=== PATIENT | male | born 1945 | race Caucasian/White ===

== ENCOUNTER 2024-09-30 14:45 | Emergency (ER) | payer OTHER, SELFPAY ==
--- NOTE | ~2024-09-30 | CT_ITS ---
EXAMINATION: CT cervical spine wo con DATE: 09/30/2024 15:58 INDICATION: Fall/etoh TECHNIQUE: Computed tomography (CT) of the cervical spine was performed without intravenous contrast. Automated exposure control and iterative reconstruction technique were employed. The dose-length pro duct was 605.33 mGy-cm. COMPARISON: None. FINDINGS: Vertebral Body Alignment: Intact. Craniocervical and atlantoaxial alignment: Moderate degenerative change. Alignment intact. Osseous structures/fracture: No evidence of a lytic or blastic process in the visualized spine. No e vidence of acute fracture. Cervical soft tissues: The paraspinal soft tissues planes are maintained. Significant biapical pleura l scarring. Degenerative changes: Multilevel moderate facet arthropathy. Multilevel severe degenerative disc dise ase. Severe right neural foraminal narrowing at C4-5 secondary to degenerative changes. No severe august tral canal narrowing. IMPRESSION: No acute fracture or traumatic malalignment in the cervical spine. Reviewed, dictated and finalized at location K. GENCY MANAGEMENT PROGRAM SPECIALIST
--- NOTE | ~2024-09-30 | CT_ITS ---
EXAMINATION: CT brain wo con DATE: 09/30/2024 15:57 INDICATION: Fall/etoh . TECHNIQUE: Computed tomography (CT) of the head was performed without intravenous contrast. The mA wa s adjusted according to patient size. Iterative reconstruction technique was employed. The dose-lengt h product was 605.33 mGy-cm. COMPARISON: None. FINDINGS: No acute intracranial hemorrhage or extra-axial fluid collection. No hydrocephalus, mass, or herniation. No acute ischemic infarct. Unremarkable dural venous sinus attenuation. No acute osseous abnormality. The aerated spaces are clear. Mild atrophy and chronic white matter change. Atherosclerotic intracranial calcification. Bilateral l ens replacements. Left basal ganglia calcification. IMPRESSION: No acute intracranial process. Reviewed, dictated and finalized at location K. SHELLFISH PREPARER
[2024-09-30 14:49] VITALS: BP 120/83; PULSE 60; RESP 12; TEMP 36.6; O2SAT 100
--- NOTE | 2024-09-30 15:39 | ED.FALL ---
HPI - Fall General Chief Complaint: Fall Stated Complaint: glf Time Seen by Provider: 09/30/24 15:06 Source: patient Mode of arrival: EMS Limitations: no limitations History of Present Illness HPI Narrative: This is a 79-year-old male brought in by EMS from a in [facility] after a ground level fall. Patient states he has been drinking today. He denies loss of consciousness or or use of blood thinners. He complains of headache ago has no other complaints at this time. He states he has been drinking ?a moderate amount. ? He has no other complaints at this time. Related Data Allergies Allergy/AdvReac Type Severity Reaction Status Date / Time No Known Allergies Allergy Unverified 10/29/15 18:09 Review of Systems Review of Systems: All systems reviewed & are unremarkable except as noted in HPI and below PMFSH Past Medical History Medical History No significant past medical history Surgical History Surgical History No significant past surgical history Social History Social History Smoking status: Current every day smoker Alcohol intake: current Substance use: never Exam Narrative: GENERAL: Well-developed, well-nourished, and in no acute distress. Smells of alcohol HEAD: Normocephalic, there is a 1 cm laceration noted to the scalp with what appears to be a previous injury EYES: PERRLA and EOMI. NECK: Supple. No midline spine tenderness to palpation, no step-off or crepitus CHEST: Clear to auscultation. No respiratory distress. No wheezes rales or rhonchi HEART: Regular rate and rhythm. No murmur heard. Normal peripheral pulses. ABDOMEN: Soft, nontender, nondistended, normal active bowel sounds. BACK: I had no midline spine tenderness to palpation, step-off or crepitus EXTREMITIES: Normal range of motion. No edema. SKIN: Warm, dry, no rash. NEURO: Alert and oriented x2 (self and location). No focal deficit. Moving all 4 limbs spontaneously. Appears intoxicated PSYCH: Normal mood and affect. Course Course Emergency Course: 17:00 - CBC demonstrates anemia with hemoglobin of 12.2 but is otherwise unremarkable. Chemistries unremarkable. Serum alcohol level 226. CT head and cervical spine negative for skull fracture or intracranial hemorrhage. The patient's laceration was closed with 2 patrizia. He was given a tetanus vaccination. Will observe for clinical sobriety and anticipate discharge. 20:34 - The patient is now ambulating steadily on his feet. Will discharge. Vital Signs Vital signs: Vital Signs Temperature 36.6 C 09/30/24 14:49 Pulse Rate 60 09/30/24 14:49 Respiratory Rate 12 09/30/24 14:49 Blood Pressure 120/83 09/30/24 14:49 Pulse Oximetry 100 09/30/24 14:49 Oxygen Delivery Room Air 09/30/24 14:49 Temperature 36.6 C 09/30/24 14:49 Pulse Rate 61 09/30/24 18:27 Respiratory Rate 16 09/30/24 18:27 Blood Pressure 123/69 09/30/24 18:27 Pulse Oximetry 99 09/30/24 18:27 Oxygen Delivery Room Air 09/30/24 14:49 Procedures Laceration Laceration 1: Date: 09/30/24 Time: 15:35 Site: scalp Side (If applicable): right Size (cm): 1 Description: linear Depth: simple, single layer Local Anesthetic: none Pre-repair: wound explored ====== Skin Level ====== Skin layer closed with: patrizia Number of sutures: 2 ====== Subcutaneous Layer ====== ====== Muscle Layer ====== ====== Tendon Layer ====== MDM - Fall [facility] Narrative Medical decision making narrative: Plan: Labs, imaging, pain control, observation, reassess Differential Diagnosis Differential diagnosis: Likely other (Skull fracture, intracranial hemorrhage, cervical spine fracture, drug/alcohol intoxication, other) Lab Data 09/30/24 16:47 09/30/24 16:47 Labs: Lab Results 09/30/24 Range/Units 16:47 WBC 4.3 L (4.5-10.0) K/mm3 RBC 4.20 L (4.6-6.20) M/mm3 Hgb 12.2 L (14.0-18.0) g/dL Hct 38.0 L (42.0-52.0) % MCV 90.5 (80-100) fl MCH 29.0 (26-34) pg MCHC 32.1 (32-36) g/dl RDW 13.8 (11.5-14.5) % Plt Count 216 (150-375) k/mm3 MPV 9.4 (7.4-10.4) fl Immature Gran % (Auto) 0.7 H (0-0.5) % Neut % (Auto) 51.1 (45.5-73.1) % Lymph % (Auto) 34.5 (18.3-44.2) % Owsley % (Auto) 11.3 H (2.6-8.5) % Eos % (Auto) 1.9 (0-4.4) % Baso % (Auto) 0.5 (0.2-1.2) % Lymph # (Auto) 1.49 (0.9-3.2) K/mm3 [place]wsley # (Auto) 0.5 (0.1-0.6) K/mm3 Eos # (Auto) 0.1 (0-0.3) K/mm3 Baso # (Auto) 0.0 (0.0-0.1) K/mm3 Abs Immat Gran (auto) 0.03 (0.00-0.031) K/mm3 Absolute Neuts (auto) 2.2 (1.3-6.7) K/mm3 Absolute Nucleated RBC 0.000 (0.0-0.012) K/mm3 Nucleated RBC % 0.0 (0.0-0.2) % Sodium 145 (137-145) mmol/L Potassium 3.9 (3.4-5.0) mmol/L Chloride 107 (98-107) mmol/L Carbon Dioxide 33 H (22-30) mmol/L Anion Gap 5 (4-12) mmol/L BUN 12 (9-20) mg/dL Creatinine 0.70 (0.7-1.3) mg/dL Estim Creat Clear Calc Not Reportable Estimated GFR > 60 (59 - ) Glucose 96 (65-110) mg/dL Calcium 8.4 (8.4-10.2) mg/dL Total Bilirubin 0.8 (0.2-1.3) mg/dL AST 37 (17-59) U/L ALT 17 (6-50) U/L Alkaline Phosphatase 81 (38-126) U/L Total Protein 6.0 L (6.3-8.2) g/dL Albumin 3.8 (3.5-5.1) g/dL Ethyl Alcohol 226 (<10) mg/dL Discharge Plan Discharge Clinical Impression: Laceration of scalp, Alcohol intoxication Patient Disposition: Home, Self-Care Condition: Stable Instructions: Antibiotic Form, Laceration (ED), Abuse of Alcohol (ED) Additional Instructions: You were seen in the emergency department. Your laceration was closed with 2 patrizia. Scan of the head was not concerning for bleeding in the brain. I recommend avoiding future drug or alcohol use. I recommend following up with a primary care doctor in 10-14 days for staple removal. If you develop weakness/numbness, persistent vomiting, loss of consciousness, or if you have other emergent concerns for life, limb, or eyesight, return to the emergency department. Patient Language: Armenian Follow-up/Referrals: Batsheva Linder DO [Physician] - 2 Weeks (For staple removal) PHYSICIAN,TALENT DEVELOPMENT CONSULTANT [Primary Care Provider] - Time of Disposition: 20:35
[2024-09-30] MEDS: TETANUS,DIPHTHERIA,AC PERTUSSIS ADULT (0.5 ML) BOOSTRIX IM (16:41)
[2024-09-30 16:50] VITALS: BP 129/66; PULSE 71; RESP 18; O2SAT 100
[2024-09-30 16:53] LABS: Basophils Percent Auto 0.5 % (0.2-1.2); Eosinophils Absolute Auto 0.1 K/mm3 (0-0.3); Eosinophils Percent Auto 1.9 % (0-4.4); Hemoglobin 12.2 g/dL (14.0-18.0); Immature Granulocyte Absolute 0.03 K/mm3 (0.00-0.031); Immature Granulocyte Percent A 0.7 % (0-0.5); Lymphocytes Absolute Auto 1.49 K/mm3 (0.9-3.2); Lymphocytes Percent Auto 34.5 % (18.3-44.2); Mean Corpuscular HGB Conc 32.1 g/dl (32-36); Mean Corpuscular Volume 90.5 fl (80-100); Mean Platelet Volume 9.4 fl (7.4-10.4); Monocytes Absolute Auto 0.5 K/mm3 (0.1-0.6); Monocytes Percent Auto 11.3 % (2.6-8.5); Neutrophils Absolute Auto 2.2 K/mm3 (1.3-6.7); Neutrophils Percent Auto 51.1 % (45.5-73.1); Platelet Count Result 216 k/mm3 (150-375); Red Cell Distribution Width 13.8 % (11.5-14.5); White Blood Count 4.3 K/mm3 (4.5-10.0)
[2024-09-30 17:10] LABS: Ethanol 226 mg/dL (<10)
[2024-09-30 17:20] LABS: Alanine Aminotransferase 17 U/L (6-50); Albumin Level 3.8 g/dL (3.5-5.1); Alkaline Phosphatase 81 U/L (38-126); Anion Gap 5 mmol/L (4-12); Aspartate Amino Transferase 37 U/L (17-59); Bilirubin,Total 0.8 mg/dL (0.2-1.3); Blood Urea Nitrogen 12 mg/dL (9-20); Calcium 8.4 mg/dL (8.4-10.2); Carbon Dioxide 33 mmol/L (22-30); Chloride 107 mmol/L (98-107); Estimated Glomerular Filt Rate > 60; Glucose 96 mg/dL (65-110); Potassium 3.9 mmol/L (3.4-5.0); Sodium 145 mmol/L (137-145)
--- NOTE | 2024-09-30 17:45 | PCCCNOTE ---
1745-Provided a cab voucher for pt upon discharge to his home address requested.-latanya.
[2024-09-30 18:27] VITALS: BP 123/69; PULSE 61; RESP 16; O2SAT 99
== END 2024-09-30 20:45 | disposition home or self-care (01) ==
PROVIDERS: Emergency Provider Preventive Medicine Aerospace Medicine
DX: S01.01XA Laceration without foreign body of scalp, initial encounter (principal); F10.129 Alcohol abuse with intoxication, unspecified; Y90.8 Blood alcohol level of 240 mg/100 ml or more; Z23 Encounter for immunization; F17.200 Nicotine dependence, unspecified, uncomplicated
CPT/HCPCS: 12001; 36415; 70450; 72125; 80053; 82077; 85025; 90471; 90715; 99284

== ENCOUNTER 2025-06-01 21:30 | Inpatient (IN) | payer MEDICARE, SELFPAY ==
--- NOTE | ~2025-06-01 | CT_ITS ---
EXAMINATION: CT abdomen pelvis wo con DATE: 06/06/2025 13:31 INDICATION: Inguinal hernia. TECHNIQUE: Computed tomography (CT) of the abdomen and pelvis was performed without intravenous contr ast. The dose-length product was 262.01 mGy-cm. Automated exposure control and iterative reconstructi on technique were employed. COMPARISON: None. FINDINGS: Lung bases unremarkable. Heart size normal. The liver, spleen, pancreas, left kidney are un remarkable. There are calcifications in the right kidney which may represent nonobstructing renal sto ne or vascular calcification. There is atherosclerosis of the aorta with stenosis of the celiac axis, SMA, renal arteries. Nonobstructive bowel gas pattern. There are bilateral inguinal hernias containi ng containing nonobstructed bowel. Small amount of fluid in the right scrotum. There is bladder wall thickening. Mild osteoarthritis of the hips. Severe lumbar spondylosis. IMPRESSION: 1. Large bilateral inguinal hernias containing nonobstructed bowel. 2: Diffuse bladder wall thickening, suspicious for cystitis. Clinically correlate. 3: Advanced atherosclerosis of the aorta with stenosis at the origin of the celiac axis, SMA and boogie al arteries. Reviewed, dictated and finalized at location A. IMPRESSION: 1. Large bilateral inguinal hernias containing nonobstructed bowel. 2: Diffuse bladder wall thickening, suspicious for cystitis. Clinically correla te. 3: Advanced atherosclerosis of the aorta with stenosis at the origin of the ce liac axis, SMA and renal arteries.
--- NOTE | ~2025-06-01 | XR_ITS ---
EXAMINATION: XR chest 1V portable Exam Date/Time: 06/01/2025 22:03 CDT HISTORY: AMS Comparison: CT C-spine 09/30/2024. RESULT: Lines, tubes, and devices: None. Lungs and pleura: No focal consolidation, pleural effusion, or pneumothorax. Biapical pleural scarri ng, worse in the right apex and grossly unchanged given interval differences in technique. Cardiomediastinal silhouette: Stable. Other: No acute osseous or upper abdominal finding. Osteopenia. Degenerative changes in the shoulder s and spine. IMPRESSION: No acute cardiopulmonary process. Reviewed, dictated and finalized at location K.
--- NOTE | ~2025-06-01 | CT_ITS ---
EXAMINATION: CT brain wo con DATE: 06/02/2025 01:06 INDICATION: New bizarre behavior TECHNIQUE: Computed tomography (CT) of the head was performed without intravenous contrast. Sagittal and coronal reconstructions were performed. The mA was adjusted according to patient size. Iterative reconstruction technique was employed. The dose-length product was 1059.33 mGy-cm. COMPARISON: head CT dated 09/30/2024 FINDINGS: No acute intracranial hemorrhage, acute infarction or abnormal extra axial fluid collection. There is mild scattered white matter hypoattenuation consistent with chronic small vessel ischemic disease. S ymmetric prominence of the sulci and ventricles consistent with mild to moderate age-appropriate diff use cerebral volume loss. No mass/mass effect. The orbits, paranasal sinuses and mastoid air cells ar e normal. IMPRESSION: 1. No acute intracranial process. 2. Age-related changes including mild to moderate diffuse volume loss and mild scattered white matter hypoattenuation consistent with chronic small vessel ischemic disease. Reviewed, dictated and finalized at location A. IMPRESSION: 1. No acute intracranial process. 2. Age-related changes including mild to moderate diffuse volume loss and mild scattered white matter hypoattenuation consistent with chronic small vessel isc hemic disease.
[2025-06-01 21:38] VITALS: BP 133/122; PULSE 86; RESP 20; O2SAT 100
--- NOTE | 2025-06-01 21:38 | ECG_ITS ---
Test Date: 2025-06-01 22:11:06 Measurements Intervals [place] Rate: 85 P: 69 WV: 182 QRS: 32 QRSD: 125 T: 70 QT: 402 QTc: 480 Interpretive Statements SINUS RHYTHM LEFT BUNDLE BRANCH BLOCK BASELINE ARTIFACT- I, II, III, AVR, AVL, AVF, V4-V6 ABNORMAL ECG No previous ECG available for comparison Electronically Signed On 06-02-2025 07:36:53 CDT by Arnoldo Fletcher D.O.
[2025-06-01 22:09] LABS: Hematocrit 33.1 % (42.0-52.0); Hemoglobin 10.9 g/dL (14.0-18.0); Immature Granulocyte Percent A 0.2 % (0-0.5); Lymphocytes Absolute Auto 0.64 K/mm3 (0.9-3.2); Mean Corpuscular HGB Conc 32.9 g/dl (32-36); Mean Corpuscular Hemoglobin 31.1 pg (26-34); Mean Corpuscular Volume 94.6 fl (80-100); Nucleated Red Blood Cells Absolute Auto 0.000 K/mm3 (0.0-0.012); Nucleated Red Blood Cells Perc 0.0 % (0.0-0.2); Platelet Count Result 200 k/mm3 (150-375); Red Blood Count 3.50 M/mm3 (4.6-6.20); White Blood Count 8.5 K/mm3 (4.5-10.0)
--- NOTE | 2025-06-01 22:10 | ECG_ITS ---
Test Date: 2025-06-01 22:10:38 Measurements Intervals [place] Rate: 85 P: 80 CA: 179 QRS: 28 QRSD: 125 T: 70 QT: 394 QTc: 470 Interpretive Statements SINUS RHYTHM LEFT BUNDLE BRANCH BLOCK BASELINE ARTIFACT- I, II, AVR, AVL, AVF ABNORMAL ECG No previous ECG available for comparison Electronically Signed On 06-03-2025 16:24:54 CDT by Arnoldo Fletcher D.O.
[2025-06-01 22:34] LABS: Alanine Aminotransferase 33 U/L (6-50); Albumin Level 3.9 g/dL (3.5-5.1); Alkaline Phosphatase 86 U/L (38-126); Anion Gap 8 mmol/L (4-12); Aspartate Amino Transferase 66 U/L (17-59); Bilirubin,Total 1.1 mg/dL (0.2-1.3); Blood Urea Nitrogen 63 mg/dL (9-20); Calcium 8.7 mg/dL (8.4-10.2); Carbon Dioxide 27 mmol/L (22-30); Chloride 102 mmol/L (98-107); Estimated Glomerular Filt Rate > 60; Glucose 90 mg/dL (65-110); Potassium 4.5 mmol/L (3.4-5.0); Sodium 137 mmol/L (137-145); Total Protein 6.4 g/dL (6.3-8.2); Troponin I 0.039 ng/mL (0.000-0.034)
[2025-06-01 22:51] LABS: Add Urine Microscopic? YES; Appearance Urine Clear (Clear); Glucose Urine UA Negative (Negative); Leukocyte Esterase Ur Trace LEU/UL (Negative); Nitrate Urine Negative (Negative); Specific Grav Ur 1.021 (1.001-1.035)
[2025-06-01 22:57] LABS: Thyroid Stimulating Hormone 0.750 uIU/mL (0.465-4.680)
[2025-06-01 23:09] LABS: Cannabinoid Screen Urine Negative (Negative)
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
[2025-06-01 23:21] VITALS: BP 125/64; PULSE 82; RESP 18; O2SAT 99
--- NOTE | 2025-06-01 23:21 | PC.NURSE ---
Per previous RN she did not give med (haldol) due to pt not needing the haldol at this time. Pt thought he was hearing voices but realized he was hearing his roommates talking.
--- OUTSIDE RECORDS SUMMARY | 2025-06-01 23:32 | XMS_ITS | Referral Summary ---
Author Organization [facility] Address [address] [place] [address] Care Team Providers Care Historical Society Director Name Role Phone Elana Ferro MD Primary Care Provider [phone] Encounters Date Type Department Care Team Description 04/24/2025 Telephone [facility] Ophthalmology [address] [place] [address] 1st [place] [id number] Laendro Almeida MD Scheduling Appointments (Retina sx) 03/07/2025 4:20 PM CDT Office Visit [facility] ([facility]) - [facility] ENT [address] [facility] 11th [place] [address] [place] [id number] Travis Ma MD Pharyngoesophageal dysphagia (Primary Dx); Globus sensation from Last 3 Months Allergies No known active allergies Medications acetaminophen (TYLENOL) 500 mg tablet Take 500 mg by mouth every 6 (six) hours as needed for pain Active moxifloxacin (VIGAMOX) 0.5 % ophthalmic solution Administer 1 drop into the right eye every 6 (six) hours Active prednisoLONE acetate (PRED FORTE) 1 % ophthalmic suspension Administer 1 drop into the right eye every 6 (six) hours Active Active Problems Problem Noted Date Diagnosed Date Retinal tear of right eye 05/29/2021 Assessment & Plan (05/29/2021 12:07 PM CDT): [facility] Patient reported photopsias at [facility] for cataract. Found to have small tear peripheral with pigment right eye (OD) likely chronic. Discussed r/b/a of laser retinopexy today with patient. He elects to proceed. 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 Gender Identity Not on file Sexual Orientation Not on file Last Filed Vital Signs Vital Sign Reading Time Taken Comments Blood Pressure 117/79 02/23/2025 11:40 AM CDT Pulse 61 02/23/2025 11:40 AM CDT Temperature - - Respiratory Rate - - Oxygen Saturation - - Inhaled Oxygen Concentration - - Weight 66.7 kg (147 lb) 03/07/2025 4:32 PM CDT Height 185.4 cm (6' 1) 03/07/2025 4:32 PM CDT Body Mass Index 19.39 03/07/2025 4:32 PM CDT Plan of Treatment Not on file Insurance [place] [employer] [facility] Care Teams Historical Society Director Relationship Specialty Start Date End Date Elana Ferro MD [address] [place] [address] PCP - General Tar And Ammonia Pump Operator 05/28/21
--- OUTSIDE RECORDS SUMMARY | 2025-06-01 23:32 | XMS_ITS | Continuity of Care Document ---
Author Organization [facility] Address [address] [place] [address] Phone Care Team Providers Care Clinical Project Assistant Name Role Phone Candelario Campbell MD Unavailable Unavailable Allergies, Adverse Reactions, Alerts Substance Reaction Status Criticality No Known Allergies Active No Inform ation Medications Medication Instructions Dosage Effective Dates (start - stop) Status Comments No Drug Therapy Prescribed Procedures Procedure Date OFFICE/OUTPATIENT VISIT, EST PREV VISIT, EST, 65 & OVER OFFICE/OUTPATIENT VISIT, EST OFFICE/OUTPATIENT VISIT, EST OFFICE/OUTPATIENT VISIT, EST OFFICE/OUTPATIENT VISIT, EST PREV VISIT, NEW, 65 & OVER OFFICE/OUTPATIENT VISIT, NEW Advance Directives Directive Yes / No Effective Date File Name No Information Encounters Encounter Description Practice Location Reason(s) For Visit Diagnoses Date Provider Providers Copied on Encounter OFFICE/OUTPA TIENT VISIT, EST [facility], [address] [place], [place], [id number], tel:[phone] [facility] knee pain1 (chief complaint) proteinuri a1 (chief complaint) ProteinuriaPain in knee 8 Adrian Palomino. [address] [place], [id number] , [place]. tel:[phone] Referring Provider: [facility], [place], [place], [id number]. tel:[phone] PREV VISIT, EST, 65 & OVER [facility], [address], [place], [place], [id number], [place] tel:[phone] [facility] PHysical (chief complaint) Inguinal herniaProteinuriaHy perlipidemiaEncount er for general adult medical exam w abnormal findingsOccult blood in stool Sep-0 8 Adrian Palomino. [address], [place], [place], [id number] , [place]. [phone] Referring Provider: Lucio Palumbo [address], [place], [place], [id number]. tel:[phone] [facility], [address], [place], [place], [id number], [place] [phone] [facility] Proteinuria 8 Adrian Locke [address], [address], [place], [place], [address] , [place]. [phone] Referring Provider: Lucio Palumbo [address], [place], [place], [id number]. tel:[phone] OFFICE/OUTPA TIENT VISIT, [facility], [address], [place], [place], [id number], [place] tel:[phone] [facility] inguinal hernia1 (chief complaint) fecal1 (chief complaint) weight loss1 (chief complaint) Urine1 (chief complaint) Abnormal weight lossInguinal herniaOccult blood in stoolUrinary tract infection Jan- 8 Adrian [address], [place], [place], [id number] , [place]. tel:[phone] Referring Provider: Lucio Palumbo [address], [place], [place], [id number]. tel:[phone] OFFICE/OUTPA TIENT VISIT, EST [facility], [address], [place], [place], [id number], [place] tel:[phone] [facility] glucose1 (chief complaint) HLP (chief complaint) Vitamin D1 (chief complaint) blood in stool (chief complaint) weight loss1 (chief complaint) HyperglycemiaHyperl ipidemiaOccult blood in stoolAbnormal weight loss Dec-0 7 Adrian Locke [address], [address], [place], [place], [id number] , [place]. tel:[phone] Referring Provider: Lucio Palumbo [address], [place], [place], [id number]. tel:[phone] OFFICE/OUTPA TIENT VISIT, EST [facility], [address], [place], [place], [id number], [place] tel:[phone] [facility] hernia1 (chief complaint) HTN (chief complaint) Essential (primary) hypertensionInguina l hernia 7 Adrian Palomino. [address], [place], [place], [id number] , [place]. tel:[phone] Referring Provider: Lucio Palumbo [address], [place], [place], [id number]. tel:[phone] PREV VISIT, NEW, 65 & OVER [facility], [address], [place], [place], [id number], [place] tel:[phone] [facility] PHysical (chief complaint) Encounter for general adult medical exam w abnormal findingsInguinal herniaEssential (primary) hypertensionEncount er for screening for other viral diseases Adrian Palomino. [address], [place], [place], [address] , [place]. tel:[phone] Referring Provider: Lucio Palumbo [address] [facility] [address], [place], [place], [id number]. tel:[phone] Family History Family Member Type Diagnosis Age At Onset Father Problem (finding) of gun shot wound Mother Problem (finding) cervical CA Brother Problem (finding) Alive and well Mother Problem (finding) Coronary artery disease 65 Payers Payer name Insurance type Covered democrat ID Authoriza tion(s) No Information Social History Type Description Quantity Date Captured Comments Alcohol Use Details Caffeine Use Details Unknown Tobacco Use Status Ex-cigarette smoker 018 Smoking Status Former smoker Smoking Tobacco Use Details Cigarette: Age Started: 12, Age Stopped: 43, Years Used 31 Cigarette: 0.5 Packs per day, Pack Year: 15.5 Non-Smoking Tobacco Use Details Chewing: No Details Available Chewing: No Details Available Sex Male Vital Signs Date / Time: Height Weight BMI Pulse Rate Blood Pressure Temperature Respiratory Rate Body Surface Area Head Circumference BMI percentile Pulse Ox Inhaled Ox 1:44 PM 73.00 in 171.90 lbs 22.6 8 kg/m eter (2) 88 /min 118/64 mm[Hg] 97.8 F 18 /min Chief Complaint And Reason For Visit From encounter dated '10/11/2018 11:30'. knee pain1 (chief complaint). Description: Pt notices some clicking noise and mild pain with walking bilateral knee for several months Pt denies any injury. Pt denies any swelling or erythema or warmth. proteinuria1 (chief complaint). Description: Pt has proteinuria. Pt denies any UTI symptoms. Pt hadnormal urine albumin recently Plan Of Treatment Date Type Action Status Goal Tobacco cessation counseling completed Referral Ordered: Surgery (related to Inguinal hernia) ordered Referral Ordered: Referrals: Surgery. Evaluate and treat ordered History Of Present Illness Encounter Date Complaint History Of Prese nt Illness proteinuria1 Pt has proteinur ia. Pt denies any UTI symptoms. Pt had normal urine albumin recently knee pain1 Pt notices some clicking noise and mild pain with walking bilateral knee for several months Pt denies any injury. Pt denies any swelling or erythema or warmth. PHysical Pt needs annual physical. Pt has mild high glucose and TG Pt denies any polyuria, polydipsia. Pt denies any lexy GI bleeding Pt had colonoscopy done recently at [facility] and he was told he has internal hemorrhoid. Pt has large painful chronic strangulated right inguinal hernia. Pt refuses to get it fixed. Pt notices mild pain sometimes. Pt denies any testicular pain Pt denies any urinary symptoms pt denies any other complaints Urine1 Pt notices some dark urine and some flank pain for several days. Pt denies any fever, chill, pt denies any nausea, vomiting. He denies any dysuria, urgency or frequency weight loss1 Pt has not been losing weight lately. Pt did lose some weight during last year Pt denies any GI issue. Pt denies any appetite loss pt denies any nausea, vomiting, diarrhea blood in stool fecal1 Pt has positive fecal globin Pt supposes to do colonoscopy by GI at [facility] but he has not done it yet. pt denies any inguinal hernia1 Pt has right in guinal hernia. Pt is noncompliant with surgery Pt denies any pain. weight loss1 Pt has lost clos e to 20 pounds recently. Pt cut down all soda, carb and starchy food, recently and trying intentioanlly weight losing. blood in stool Additional infor mation: Pt has positive blood in stool. pt denies any change in bowel habit Pt denies any weight loss. Vitamin D1 Pt has low D. HLP Pt has mild high TG Pt eats healthy. glucose1 Pt has mild high glucose. Pt denies any polyuria, polydipsia HTN His BP is ok tod ay. Pt deneis any chest pain or headahe. He states that his BP is high when he is stressed out hernia1 Pt has large str angulated right inguinal hernia. Pt seen surgeon who plans for surgery but he changed his mind? He told me he is going to contact [facility] to see if there is a beter way for the surgery? He has unreducible right inguinal hernia with intermittent pain. Pt denies any testicular pain. Pt denies anyurinary symptoms PHysical Pt needs annual physical Pt has not seen [facility] for several years. Pt c/o bilateral inguinal hernia for more than 10 years Pt c/o pain sometimes Pt states that he has permanent bulge around inguinal area with mild pain for more than 5 years and he seen multiple physicians who did not do anything. Pt denies any GI bleeding. Pt denies any constipation, diarrhea, blood in stool. Pt denies any urinary symptoms. Pt denies any other complaitns Medications Administered Medication Instructions Dosage Effective Dates (start - stop) Status Comments No Drug Therapy Prescribed Instructions Date Instruction Additional Infor mation Increase physical activity Relat ed to Abnormal weight loss Compliant with medic ation instruction Related to Hyperglycemia Prescribed Diet Educ ation/Lifestyle Education Regarding Diet Related to Dietary Surveillance and Counseling Prescribed Activity and Exercise Education Related to Dietary Surveillance and Counseling Assessments Type Assessment Date assessment Proteinuria assessment Pain in knee Mental Status Date Cognitive Assessment Orientation - Hiddenite ed to time, place, person, situation.
--- OUTSIDE RECORDS SUMMARY | 2025-06-01 23:32 | XMS_ITS | Encounter Summary ---
Author Organization [facility] Address [address] [place] [address] Phone Care Team Providers Care Bungy Jump Master Name Role Phone Elana Ferro MD Primary Care Provider [phone] Reason for Visit * Reason Onset Date Comments Scheduling Appointments 04/24/2025 Retina s x Encounter Details Date Type Department Care Team (Late st Contact Info) Description 04/24/2025 Telephone [facility] Ophthalmology [address] [place] [phone] Leandro Almeida MD [address] [facility] [address] [place], [place] [id number] Scheduling Appointments (Retina sx) Social History Tobacco Use Types Packs/Day Years Used Date Smoking Tobacco: Former Sex and Gender Information Value Date Recorded Sex Assigned at Not on file 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 Left message that we received referral for surgery. Please call [phone] to schedule. * Telephone Encounter - Dolly Umana - 06/01/2025 9:18 AM CDT Updated pt phone numbers [facility] on [facility] * Telephone Encounter - Dolly Umana - 04/24/2025 8:30 AM CDT Attempted to call pt to schedule retina sx. [facility] Primary number- voicemail not set up. Home number- not a working number. Second mobile number on account- calling restrictions. No MyChart. Will attempt again in future with primary number. documented in this encounter Plan of Treatment Not on file documented as of this encounter Visit Diagnoses Not on filedocumented in this encounter Care Teams Bungy Jump Master Relationship Specialty Start Date End Date Elana Ferro MD [address] [place] [address] PCP - General Plumber Maintenance 05/28/21 documented as of this encounter
--- OUTSIDE RECORDS SUMMARY | 2025-06-01 23:32 | XMS_ITS | Clinical Summary ---
Author Organization [facility] Address [address] [place] [address] Care Team Providers Care Guest Services Director Name Role Phone Elana Ferro MD Primary Care Provider [phone] Allergies No known active allergies Medications acetaminophen [...] proceed. Will follow-[facility] in [facility] Pain in wrist 02/01/2015 Encounters Date Type Department Care Team Description 04/24/2025 Telephone [facility] Ophthalmology [address] [place] [address] 1st [place] [address] Leandro Almeida MD Scheduling Appointments (Retina sx) 03/07/2025 4:20 PM CDT Office Visit [facility] - [facility] ENT [address] [facility] 11th [place] [address] [place] [address] Travis Ma MD Pharyngoesophageal dysphagia (Primary Dx); Globus sensation from Last 3 Months Family History Medical History Relation Name Comments Cancer Mother Family history of malignant neoplasm - (Added by TW Conv) Relation Name Status Comments Mother Social History Tobacco Use Types Packs/Day Years Used Date Smoking Tobacco: Former Sex and Gender Information Value Date Recorded Sex Assigned at Not on file Legal Sex Male 2:33 AM [employer] Gender Identity Not on file Sexual Orientation Not on file Obstetrics History Last Filed Vital Signs Vital Sign Reading [...] 03/07/2025 4:32 PM CDT Plan of Treatment Health Maintenance Due Date Last Done Comments Depression Screening 1945 Fall Risk Assessment 1945 Hepatitis C Screening 1945 Hepatitis B Screening 1964 Abdominal Aortic Aneurysm (A AA) Screen 2011 Well Visit 65+ 2011 Covid-19 Vaccine (2023-2 5 season) 2025 10/06/2024, 08/17/2023, 08/14/2022, Additional history exists Influenza Vaccine (#1) 2025 10/06/2024, 2022 DTaP/Tdap/Td Vaccine (3 - Td or Tdap) 06/09/2031 06/09/2021, 10/29/2015, 06/24/2007 Zoster Vaccine Completed 01/07/2023, 04/2023, 06/09/2011 Pneumococcal vaccine 65+ Completed 024, 02/18/2016, 04/06/2012 Insurance [facility] Care Teams Guest Services Director Relationship Specialty Start Date End Date Elana Ferro MD [address] [place] [address] PCP - General [employer] 05/28/21
[2025-06-02] VITALS (45 sets, daily range): BP systolic 90–129; BP diastolic 53–76; PULSE 47–98; RESP 12–22; TEMP 36.4–36.8; O2SAT 96–100; BMI 15.7
[2025-06-02] MEDS: HALOPERIDOL LACTATE 5 MG/ML VIAL 2.5 MG IV PUSH (00:18)
[2025-06-02] MEDS: LORazepam INJ (*CRX) 2 MG/ML VIAL IV PUSH (00:18)
--- NOTE | 2025-06-02 00:40 | ED_ITS ---
HPI - Altered Mental Status General Chief Complaint: Altered Mental Status Stated Complaint: CONFUSED Time Seen by Provider: 06/01/25 21:38 History of Present Illness HPI narrative: Patient was found wandering around the police station, he can not tell me more about what is going on, he just states that he is looking for friend to share a beer with, that friend usually wears a hoop bender tank striped suit (you know the one). Cannot give me a better reason, can not tell me what month it is (I only care if it is snowing) Related Data Allergies Allergy/AdvReac Type Severity Reaction Status Date / Time No Known Allergies Allergy Unverified 10/29/15 18:09 Review of Systems 2 Review of Systems: All systems reviewed & are unremarkable except as noted in HPI and below PMFSH Past Medical History Medical History No significant past medical history Surgical History Surgical History No significant past surgical history Social History Social History Smoking status: Current every day smoker Alcohol intake: current Substance use: never Exam 2 Narrative: EXAMINATION OF ORGAN SYSTEMS/BODY AREAS: Constitutional: Vital signs per nursing GENERAL:[No acute distress, non-toxic appearing.] HEAD: Normal with no signs of head trauma. EYES: EOMI, conjunctiva normal ENT: Hearing grossly intact LUNGS: Nonlabored breathing. HEART: [Regular rate and rhythm] ABD: [Soft], [nontender to palpation] EXT: Normal range of motion SKIN: [No rashes or lesions.] NEURO: [Alert and oriented x 2. No gross focal sensory or strength deficits.] PSYCH: Normal affect Course Vital Signs Vital signs: Vital Signs Pulse Rate 86 06/01/25 21:38 Respiratory Rate 20 06/01/25 21:38 Blood Pressure 133/122 H 06/01/25 21:38 Pulse Oximetry 100 06/01/25 21:38 Pulse Rate 82 06/01/25 23:21 Respiratory Rate 18 06/01/25 23:21 Blood Pressure 125/64 06/01/25 23:21 Pulse Oximetry 99 06/01/25 23:21 MDM - Altered Mental Status MDM Narrative Medical decision making narrative: Patient was found wandering around the police station, he can not tell me more about what is going on, he just states that he is looking for friend to share a beer with, that friend usually wears a hoop bender tank striped suit (you know the one). Cannot give me a better reason, can not tell me what month it is (I only care if it is snowing) He insists that he was here 2 weeks ago; denies any chest pain or shortness of breath. States that he wants to go and we cannot keep him here or he will call a creative services intern. Unfortunately since he is making bizarre statements, only alert and oriented x2, I will have to obtain other collateral, called his friend listed in his contacts he did not pharmacy picking technician and left a voicemail. [facility], and was able to obtain information from the triage physician that he had been there a few times over last month, for other reasons, and had been alert and oriented x4 at those times. He had been answering appropriately dose x2. Given this I do feel this is a new altered mental status and he will need to be admitted, the [facility] physician agrees with this plan, but unfortunately they are full there he cannot take the patient transfer. He did provide me with the patient's medications. rosuvastatin 40mg nitroglycerin prn tylenol prn seroquel 12.5mg protonix 40mg spiriva Last EKG 04/25 did show widened QRS, appears similar to the EKG we obtained here today. He did have a troponin that was negative back in December, so this may be a new elevation. I will repeat the troponin, though he has no chest pain or shortness of breath or signs of acute ischemia on his EKG. Discussed with hospitalist for admission. Lab Data 06/01/25 21:54 06/01/25 21:54 Labs: Lab Results 06/01/25 06/01/25 Range/Units 21:54 22:40 WBC 8.5 (4.5-10.0) K/mm3 RBC 3.50 L (4.6-6.20) M/mm3 Hgb 10.9 L (14.0-18.0) g/dL Hct 33.1 L (42.0-52.0) % MCV 94.6 (80-100) fl MCH 31.1 (26-34) pg MCHC 32.9 (32-36) g/dl RDW 13.5 (11.5-14.5) % Plt Count 200 (150-375) k/mm3 MPV 9.9 (7.4-10.4) fl Immature Gran % (Auto) 0.2 (0-0.5) % Neut % (Auto) 79.8 H (45.5-73.1) % Lymph % (Auto) 7.5 L (18.3-44.2) % [place] % (Auto) 12.0 H (2.6-8.5) % Eos % (Auto) 0.1 (0-4.4) % Baso % (Auto) 0.4 (0.2-1.2) % Lymph # (Auto) 0.64 L (0.9-3.2) K/mm3 [place] # (Auto) 1.0 H (0.1-0.6) K/mm3 Eos # (Auto) 0.0 (0-0.3) K/mm3 Baso # (Auto) 0.0 (0.0-0.1) K/mm3 Abs Immat Gran (auto) 0.02 (0.00-0.031) K/mm3 Absolute Neuts (auto) 6.8 H (1.3-6.7) K/mm3 Absolute Nucleated RBC 0.000 (0.0-0.012) K/mm3 Nucleated RBC % 0.0 (0.0-0.2) % Sodium 137 (137-145) mmol/L Potassium 4.5 (3.4-5.0) mmol/L Chloride 102 (98-107) mmol/L Carbon Dioxide 27 (22-30) mmol/L Anion Gap 8 (4-12) mmol/L BUN 63 H D (9-20) mg/dL Creatinine 1.04 (0.7-1.3) mg/dL Estim Creat Clear Calc Not Reportable Estimated GFR > 60 (59 - ) Glucose 90 (65-110) mg/dL Lactic Acid 1.6 (0.7-2.0) mmol/L Calcium 8.7 (8.4-10.2) mg/dL Total Bilirubin 1.1 (0.2-1.3) mg/dL AST 66 H (17-59) U/L ALT 33 (6-50) U/L Alkaline Phosphatase 86 (38-126) U/L Troponin I 0.039 H* (0.000-0.034) ng/mL Total Protein 6.4 (6.3-8.2) g/dL Albumin 3.9 (3.5-5.1) g/dL TSH 0.750 (0.465-4.680) uIU/mL Urine Color Yellow (Yellow) Urine Appearance Clear (Clear) Urine pH 6.5 (5.0-9.0) Ur Specific [place] 1.021 (1.001-1.035) Urine Protein Trace (Negative) mg/dL Urine Glucose (UA) Negative (Negative) mg/dL Urine Ketones Trace H (Negative) mg/dL Ur Blood (Man) Negative (Negative) Urine Nitrate Negative (Negative) Urine Bilirubin Negative (Negative) Urine Urobilinogen 0.2 (<2.0) mg/dL Leukocyte Esterase Rfl Trace H (Negative) JABIER/UL Urine RBC 0-2 (0-2) /hpf Urine WBC 0-5 (0-3) /hpf Ur Squamous Epith Cells None seen (Few) /hpf Urine Bacteria None seen /hpf Urine Casts 3-5 Urine Opiates Screen Negative (Negative) Urine Methadone Screen Negative (Negative) Ur Barbiturates Screen Negative (Negative) Ur Phencyclidine Scrn Negative (Negative) Ur Amphetamine Screen Negative (Negative) U Benzodiazepines Scrn Negative (Negative) Urine Cocaine Screen Negative (Negative) U Cannabinoids Screen Negative (Negative) Ethyl Alcohol < 10 (<10) mg/dL Critical Care Time Critical Care Time Critical Care Time: Yes Total Critical Care Time: 31 Discharge Plan Discharge Clinical Impression: Altered mental status, Elevated troponin Patient Disposition: Still a Patient Condition: Serious Patient Language: Yi Follow-up/Referrals: PHYSICIAN,TRANSITION RN [Primary Care Provider] -
--- NOTE | 2025-06-02 01:10 | ECG_ITS ---
Test Date: 2025-06-02 01:38:12 Measurements Intervals [place] Rate: 73 P: 74 NV: 160 QRS: 22 QRSD: 132 T: 78 QT: 446 QTc: 493 Interpretive Statements SINUS RHYTHM WITH SINUS ARRHYTHMIA LEFT BUNDLE BRANCH BLOCK ABNORMAL ECG Compared to ECG 06/01/2025 22:11:06 No significant changes Electronically Signed On 06-02-2025 07:42:06 CDT by Arnoldo Fletcher D.O.
[2025-06-02] MEDS: LACTATED RINGERS 1,000 ML 999 ML IV CONT (01:40)
[2025-06-02] MEDS: THIAMINE HCL 200 MG/2 ML VIAL 100 MG IV PUSH ×2 (01:42→09:12)
[2025-06-02 01:58] LABS: Troponin I 0.031 ng/mL (0.000-0.034)
[2025-06-02] MEDS: DEXTROSE 5%/0.9% SOD CHL 1,000 ML 125 ML IV CONT (02:06)
[2025-06-02] MEDS: FOLIC ACID 1 MG/0.2 ML INJ IV PUSH ×2 (03:05→09:57)
[2025-06-02 04:52] LABS: Hematocrit 31.5 % (42.0-52.0); Hemoglobin 10.1 g/dL (14.0-18.0); Immature Granulocyte Percent A 0.4 % (0-0.5); Lymphocytes Absolute Auto 1.47 K/mm3 (0.9-3.2); Mean Corpuscular HGB Conc 32.1 g/dl (32-36); Mean Corpuscular Hemoglobin 30.8 pg (26-34); Mean Corpuscular Volume 96.0 fl (80-100); Nucleated Red Blood Cells Absolute Auto 0.000 K/mm3 (0.0-0.012); Nucleated Red Blood Cells Perc 0.0 % (0.0-0.2); Platelet Count Result 169 k/mm3 (150-375); Red Blood Count 3.28 M/mm3 (4.6-6.20); White Blood Count 7.7 K/mm3 (4.5-10.0)
[2025-06-02 05:00] LABS: Acetaminophen < 10 ug/mL (10-30); Ammonia < 9 umol/L (9-30)
--- NOTE | 2025-06-02 05:00 | ECG_ITS ---
Test Date: 2025-06-02 09:35:00 Measurements Intervals [place] Rate: 73 P: 133 DE: 264 QRS: 87 QRSD: 117 T: 66 QT: 421 QTc: 464 Interpretive Statements SINUS RHYTHM WITH FIRST DEGREE AV BLOCK INCOMPLETE RIGHT BUNDLE BRANCH BLOCK MINIMAL Q WAVES- INFERIOR LEADS BORDERLINE ST-T WAVE ABNORMALITY- ANT/HIGH LAT LEADS BASELINE ARTIFACT- I, III, AVR, AVL, V1-V2 BORDERLINE ECG Compared to ECG 06/02/2025 01:38:12 First degree AV block now present LEFT BUNDLE BRANCH BLOCK NO LONGER PRESENT Electronically Signed On 06-02-2025 14:48:08 CDT by Arnoldo Fletcher D.O.
[2025-06-02 05:17] LABS: Alanine Aminotransferase 26 U/L (6-50); Albumin Level 3.2 g/dL (3.5-5.1); Alkaline Phosphatase 85 U/L (38-126); Anion Gap 3 mmol/L (4-12); Aspartate Amino Transferase 52 U/L (17-59); Bilirubin,Total 0.7 mg/dL (0.2-1.3); Blood Urea Nitrogen 44 mg/dL (9-20); Calcium 8.0 mg/dL (8.4-10.2); Carbon Dioxide 28 mmol/L (22-30); Chloride 103 mmol/L (98-107); Estimated CRCL calculation 47 ml/min; Estimated Glomerular Filt Rate > 60; Glucose 117 mg/dL (65-110); Magnesium 2.3 mg/dL (1.6-2.3); Potassium 3.5 mmol/L (3.4-5.0); Sodium 134 mmol/L (137-145); Total Protein 5.5 g/dL (6.3-8.2)
--- NOTE | 2025-06-02 05:17 | ADMGEN ---
This patient, Caio Teran, was admitted to IMU Room 203-01. Patient/family oriented to hospital policies and general routines including ID bracelet, bed and alarms, visiting hours, pain management, procedures, bathroom and other care routines, personal items, smoking policy, room service/diet, and visiting hours. Information on how to activate the Rapid Response Team has been discussed. Patient/Family are encouraged to report perceived risks to care and to ask questions if they do not understand what they are told or what they should do.
[2025-06-02 05:27] LABS: Salicylate < 1.0 mg/dL (2-20)
--- NOTE | 2025-06-02 06:04 | P.HP_ITS ---
H&P: HPI History of Present Illness Date/Time: 06/02/25 06:04 Chief Complaint: Altered mental status Narrative: 71-year-old male with history of alcohol use disorder another unknown comorbidities presents to [facility] ER for confusion. History is taken entirely from the ER physician. The patient is nonverbal. Reportedly, he was found wandering around a police station. After he was brought in he was giving inappropriate answers to the ER physician, obviously confused/confabulating. [facility] has been [facility] for other reasons and has been A&O x4 usually. They report the patient takes rosuvastatin, nitroglycerin p.r.n., Tylenol p.r.n., Seroquel, Protonix, Spiriva. Vitals were within normal limits. WBC 7.7, hemoglobin 10.1, sodium 137, BUN 63 which improved 44 after isotonic fluid resuscitation, serum creatinine 1.04, blood glucose 90, calcium 8.7, AST 66, ALT 33, alkaline phosphatase 86, troponin 0.039 improved to 0.031, TSH 0.750, urinalysis trace ketones and trace leukocyte esterase, drug urine screen negative, eval alcohol within normal limits, Tylenol and salicylates within normal limits. Preliminary result on CT brain without contrast demonstrating no acute intracranial findings. Age-related cerebral volume loss. Then, patient reportedly became verbally aggressive and was given lorazepam 2 mg IV x1, Haldol 2.5 mg x 2. Review of Systems Review of Systems: All systems reviewed & are unremarkable except as noted in HPI and below (Subjective/HPI) [facility] Past Medical History Medical History No significant past medical history Surgical History Surgical History No significant past surgical history Social History Social History Smoking status: Current every day smoker Alcohol intake: current Substance use: unknown Spiritual care concerns: No Meds Home Medications and Allergies Allergies Allergy/AdvReac Type Severity Reaction Status Date / Time No Known Allergies Allergy Unverified 10/29/15 18:09 Vital Signs Vital Signs - 24 hr 06/01/25 21:38 06/01/25 23:21 06/02/25 00:22 Temperature Pulse Rate 86 82 91 Respiratory Rate 20 18 17 Blood Pressure 133/122 H 125/64 116/64 Pulse Oximetry 100 99 Oxygen Delivery 06/02/25 00:23 06/02/25 00:30 06/02/25 00:31 Temperature Pulse Rate 93 85 85 Respiratory Rate 20 18 18 Blood Pressure 99/58 L Pulse Oximetry 99 96 96 Oxygen Delivery 06/02/25 00:45 06/02/25 00:46 06/02/25 00:47 Temperature Pulse Rate 84 83 83 Respiratory Rate 17 17 18 Blood Pressure 90/60 L Pulse Oximetry 97 97 97 Oxygen Delivery 06/02/25 01:23 06/02/25 01:30 06/02/25 01:37 Temperature Pulse Rate 76 74 76 Respiratory Rate 19 19 Blood Pressure 101/60 Pulse Oximetry 100 Oxygen Delivery 06/02/25 01:38 06/02/25 01:45 06/02/25 01:46 Temperature Pulse Rate 74 80 84 Respiratory Rate 20 22 H 22 H Blood Pressure 124/62 Pulse Oximetry 100 100 100 Oxygen Delivery 06/02/25 02:00 06/02/25 02:01 06/02/25 02:15 Temperature Pulse Rate 74 75 74 Respiratory Rate 18 18 16 Blood Pressure 123/58 L Pulse Oximetry 97 99 100 Oxygen Delivery 06/02/25 02:16 06/02/25 02:30 06/02/25 02:31 Temperature Pulse Rate 74 76 75 Respiratory Rate 19 17 17 Blood Pressure 129/65 110/59 L Pulse Oximetry 100 Oxygen Delivery 06/02/25 02:45 06/02/25 02:46 06/02/25 03:00 Temperature Pulse Rate 75 73 73 Respiratory Rate 17 17 15 Blood Pressure 129/73 Pulse Oximetry Oxygen Delivery 06/02/25 03:01 06/02/25 03:15 06/02/25 03:16 Temperature Pulse Rate 77 70 73 Respiratory Rate 16 17 17 Blood Pressure 123/61 116/63 Pulse Oximetry Oxygen Delivery 06/02/25 03:30 06/02/25 03:31 06/02/25 03:45 Temperature Pulse Rate 71 70 65 Respiratory Rate 18 17 16 Blood Pressure 114/67 Pulse Oximetry Oxygen Delivery 06/02/25 03:46 06/02/25 04:00 06/02/25 04:01 Temperature Pulse Rate 66 62 98 Respiratory Rate 18 20 22 H Blood Pressure 128/61 116/76 Pulse Oximetry Oxygen Delivery 06/02/25 04:15 06/02/25 05:10 06/02/25 05:12 Temperature 98.1 F Pulse Rate 77 62 Respiratory Rate 17 18 Blood Pressure 113/61 Pulse Oximetry 100 100 Oxygen Delivery Room Air Exam Const: General: comfortable Other: Obtunded, protecting airway, unkempt HENMT: Mouth: Yes dry mucous membranes Eyes: Pupils: Equal, round and reactive pupils present Neck: Neck: supple Resp: Effort & Inspection: normal respiratory effort Auscultation: clear to auscultation bilaterally Cardio: Rate: regular rate Rhythm: regular rhythm GI: Inspection: non-distended GI Palp: Yes Soft to palpation : General: Yes bladder normal to palpation Neuro: Other: Unable to perform complete examination Extrem: General: no edema H&P: Results Labs Labs: Short CBC 06/01/25 06/02/25 Range/Units 21:54 04:40 WBC 8.5 7.7 (4.5-10.0) K/mm3 Hgb 10.9 L 10.1 L (14.0-18.0) g/dL Hct 33.1 L 31.5 L (42.0-52.0) % Plt Count 200 169 (150-375) k/mm3 BMP 06/01/25 06/02/25 21:54 04:39 Sodium 137 134 L Potassium 4.5 3.5 Chloride 102 103 Carbon Dioxide 27 28 BUN 63 H D 44 H D Creatinine 1.04 0.87 Glucose 90 117 H Calcium 8.7 8.0 L Cardiac Enzymes 06/01/25 06/02/25 Range/Units 21:54 01:22 Troponin I 0.039 H* 0.031 D (0.000-0.034) ng/mL Liver Function 06/01/25 06/02/25 Range/Units 21:54 04:39 Total Bilirubin 1.1 0.7 (0.2-1.3) mg/dL AST 66 H 52 (17-59) U/L ALT 33 26 (6-50) U/L Alkaline Phosphatase 86 85 (38-126) U/L Albumin 3.9 3.2 L (3.5-5.1) g/dL Urine 08/01/25 Range/Units 22:40 Urine Color Yellow (Yellow) Urine Appearance Clear (Clear) Urine pH 6.5 (5.0-9.0) Ur Specific [place] 1.021 (1.001-1.035) Urine Protein Trace (Negative) mg/dL Urine Glucose (UA) Negative (Negative) mg/dL Assessment and Plan Assessment and plan (1) Elevated troponin: Code(s): R79.89 - Other specified abnormal findings of blood chemistry Status: Acute (2) Altered mental status: Code(s): R41.82 - Altered mental status, unspecified Status: Acute (3) Elevated BUN: Code(s): R79.9 - Abnormal finding of blood chemistry, unspecified Status: Acute Plan 71-year-old male with history of alcohol use disorder another unknown comorbidities presents to [facility] ER for confusion. History is taken entirely from the ER physician. The patient is nonverbal. Reportedly, he was found wandering around a police station. After he was brought in he was giving inappropriate answers to the ER physician, obviously confused/confabulating. [facility] reports he has been [facility] for other reasons and has been A&O x4 usually. They report the patient takes rosuvastatin, nitroglycerin p.r.n., Tylenol p.r.n., Seroquel, Protonix, Spiriva. Vitals were within normal limits. WBC 7.7, hemoglobin 10.1, sodium 137, BUN 63 which improved 44 after isotonic fluid resuscitation, serum creatinine 1.04, blood glucose 90, calcium 8.7, AST 66, ALT 33, alkaline phosphatase 86, troponin 0.039 improved to 0.031, TSH 0.750, urinalysis trace ketones and trace leukocyte esterase, drug urine screen negative, eval alcohol within normal limits, Tylenol and salicylates within normal limits. Preliminary result on CT brain without contrast demonstrating no acute intracranial findings. Age-related cerebral volume loss. Then, patient reportedly became verbally aggressive and was given lorazepam 2 mg IV x1, Haldol 2.5 mg x 2 and thereafter he was obtunded. ----- An attempt to contact family was unsuccessful. It is unclear if this patient is homeless, if he is taking his medications or not, for the full scope of his medical and psychiatric history. Elevated troponin has resolved. Patient never complained of chest pain. No acute ST changes on EKG. Preliminary CT head result without any acute findings. He is afebrile and there is no leukocytosis. He was very dry on exam and is BUN improved from 63 to 44 after fluids. Giving multivitamins, folic acid, thiamine, D5 normal saline at 125 cc/hour. Checking vitamin B12, vitamin B1, B2, B6, folate, ammonia. Patient will be full code. SCDs. Fall precautions, ambulate with assistance. NPO. Hospitalist MIPS Advance Care Plan I have confirmed that the patient's Advanced Care Plan is present, code status is documented, or surrogate decision maker is listed in patient medical record.: Yes Medication Reconciliation I have utilized all available resources to obtain, update and review the patients current medications (includes all prescriptions, OTC, herbals, cannabis, and nutritional supplements).: Yes
[2025-06-02 06:26] LABS: Vitamin B12 383.0 pg/mL (239-931)
[2025-06-02] MEDS: MULTIVITAMINS-12 INJ VIAL 1 5 ML, MULTIVITAMINS-12 INJ VIAL 2 5 ML in SODIUM CHLORIDE 0... 100 ML IV CONT (07:00)
[2025-06-02] MEDS: PANTOPRAZOLE SODIUM IV 40 MG VIAL IV PUSH (09:12)
--- NOTE | 2025-06-02 15:05 | PM.IMPN ---
Progress Note: A&P Assessment and Plan (1) Altered mental status: Code(s): R41.82 - Altered mental status, unspecified Status: Acute Assessment and Plan: Patient brought to emergency room because of confusion. Patient was aggressive in the emergency room the did require Ativan IV and Haldol IV. Currently pleasant, cooperative but remains confused. Patient was seen in September in the emergency room and only alert and oriented x2. He was however intoxicated. CT the brain showed no acute intracranial process but did show mild-moderate diffuse volume loss. Chest x-ray was clear. EKG showed normal sinus rhythm with sinus arrhythmia and left BBB. 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 Mild anemia noted. BB12 and folate normal. Ammonia <9. TSH normal. Consider Korsakoff with his confabulation and memory impairment. Consider Alzheimer More alert. Will have ST evaluate with bedside swallow. Check RPR, VitD level. Neuro consult. Check MRI brain (2) Elevated troponin: Code(s): R79.89 - Other specified abnormal findings of blood chemistry Status: Acute Assessment and Plan: Troponin elevated at 0.039 with next value normal. EKG showing no acute ST-T wave changes. 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 CXR is clear. Elevated Trop could be related to episodes of tachycardia. Monitor on tele. (3) Elevated BUN: Code(s): R79.9 - Abnormal finding of blood chemistry, unspecified Status: Acute Assessment and Plan: BUN 63 and Cr 1.04 on admission felt related to dehydration. Urine ketones trace. BUN, Cr better with IV fluids. Assess swallow and start diet. (4) Alcohol use disorder: Code(s): F10.90 - Alcohol use, unspecified, uncomplicated Status: Acute Assessment and Plan: Patient has alcohol use disorder per chart. Thiamine, Folate and MVI started. Have Ativan available for evidence of withdrawal. Start CIWA (5) Anemia: Code(s): D64.9 - Anemia, unspecified Status: Acute Assessment and Plan: Hgb low but stable in the 10 range. B12, folate normal. Check iron studies. Plan Disp - unclear if this patient is homeless. He does not have capacity to make decisions at this time Code status -full DVT prophylaxis - SCDs. Subjective Date/time seen: 06/02/25 15:05 Interval history: 79yo male with alcohol use disorder here for AMS. Patient is alert but remains confused so hx unable to be obtained. Review of Systems Review of Systems: ROS unobtainable: Yes unobtainable due to mental status Exam Narrative: AF 97.6 123/55 78 16 100% ra Gen - NARD Chest - CTA bilaterally, nml RR CV - RRR S1/S2. Tele showing runs of sinus tachycardia Abd - Soft, NT/ND, Positive BS Ext - No pedal edema Neuro - Alert but confused. oriented to year and that he is in the hospital (not the name) Psych - Nml mood and affect; pleasant and cooperative Skin - Warm and dry Objective Data Vital Signs Vital Signs: Vital Signs - 24 hr 06/01/25 21:38 06/01/25 23:21 06/02/25 00:22 Temperature Pulse Rate 86 82 91 Respiratory Rate 20 18 17 Blood Pressure 133/122 H 125/64 116/64 Pulse Oximetry 100 99 Oxygen Delivery 06/02/25 00:23 06/02/25 00:30 06/02/25 00:31 Temperature Pulse Rate 93 85 85 Respiratory Rate 20 18 18 Blood Pressure 99/58 L Pulse Oximetry 99 96 96 Oxygen Delivery 06/02/25 00:45 06/02/25 00:46 06/02/25 00:47 Temperature Pulse Rate 84 83 83 Respiratory Rate 17 17 18 Blood Pressure 90/60 L Pulse Oximetry 97 97 97 Oxygen Delivery 06/02/25 01:23 06/02/25 01:30 06/02/25 01:37 Temperature Pulse Rate 76 74 76 Respiratory Rate 19 19 Blood Pressure 101/60 Pulse Oximetry 100 Oxygen Delivery 06/02/25 01:38 06/02/25 01:45 06/02/25 01:46 Temperature Pulse Rate 74 80 84 Respiratory Rate 20 22 H 22 H Blood Pressure 124/62 Pulse Oximetry 100 100 100 Oxygen Delivery 06/02/25 02:00 06/02/25 02:01 06/02/25 02:15 Temperature Pulse Rate 74 75 74 Respiratory Rate 18 18 16 Blood Pressure 123/58 L Pulse Oximetry 97 99 100 Oxygen Delivery 06/02/25 02:16 06/02/25 02:30 06/02/25 02:31 Temperature Pulse Rate 74 76 75 Respiratory Rate 19 17 17 Blood Pressure 129/65 110/59 L Pulse Oximetry 100 Oxygen Delivery 06/02/25 02:45 06/02/25 02:46 06/02/25 03:00 Temperature Pulse Rate 75 73 73 Respiratory Rate 17 17 15 Blood Pressure 129/73 Pulse Oximetry Oxygen Delivery 06/02/25 03:01 06/02/25 03:15 06/02/25 03:16 Temperature Pulse Rate 77 70 73 Respiratory Rate 16 17 17 Blood Pressure 123/61 116/63 Pulse Oximetry Oxygen Delivery 06/02/25 03:30 06/02/25 03:31 06/02/25 03:45 Temperature Pulse Rate 71 70 65 Respiratory Rate 18 17 16 Blood Pressure 114/67 Pulse Oximetry Oxygen Delivery 06/02/25 03:46 06/02/25 04:00 06/02/25 04:01 Temperature Pulse Rate 66 62 98 Respiratory Rate 18 20 22 H Blood Pressure 128/61 116/76 Pulse Oximetry Oxygen Delivery 06/02/25 04:15 06/02/25 05:10 06/02/25 05:12 Temperature 98.1 F Pulse Rate 77 62 Respiratory Rate 17 18 Blood Pressure 113/61 Pulse Oximetry 100 100 Oxygen Delivery Room Air 06/02/25 06:00 06/02/25 07:53 06/02/25 07:53 Temperature 97.5 F L Pulse Rate 64 58 L Respiratory Rate 12 Blood Pressure 103/57 L Pulse Oximetry 100 100 Oxygen Delivery Room Air 06/02/25 08:00 06/02/25 08:00 06/02/25 10:00 Temperature Pulse Rate 47 L 75 Respiratory Rate Blood Pressure Pulse Oximetry Oxygen Delivery Room Air 06/02/25 12:00 06/02/25 12:00 06/02/25 12:00 Temperature 97.6 F Pulse Rate 73 68 Respiratory Rate 16 Blood Pressure 123/55 L Pulse Oximetry 100 Oxygen Delivery Room Air 06/02/25 14:00 Temperature Pulse Rate 78 Respiratory Rate Blood Pressure Pulse Oximetry Oxygen Delivery Intake/Output Intake/Output: Intake & Output 05/30/25 05/31/25 06/01/25 06/02/25 23:59 23:59 23:59 23:59 Intake Total 1000 Balance 1000 Meds/Results Medications: Active Medications Generic Name Dose Route Start Last Admin Trade Name Freq PRN Reason Stop Dose Admin Folic Acid 1 mg 06/02/25 09:00 06/02/25 09:57 Folic Acid 1 Mg/0.2 Ml Inj IV PUSH 1 mg QAM CHANDNI Administration Dextrose/Sodium Chloride 1,000 mls @ 125 mls/hr 06/02/25 01:50 06/02/25 02:06 Dextrose 5% Sodium Chloride 0.9% IV CONT 125 mls/hr .Q8H CHANDNI Administration Multivitamins 5 ml/ 1,010 mls @ 100 mls/hr 06/02/25 06:16 06/02/25 07:00 Multivitamins 5 ml/ Sodium IV CONT 06/02/25 16:21 100 mls/hr Chloride .Q10H6M STA Administration Pantoprazole Sodium 40 mg 06/02/25 09:00 06/02/25 09:12 Pantoprazole Sodium Iv 40 Mg Vial IV PUSH 40 mg QAM CHANDNI Administration Thiamine HCl 100 mg 06/02/25 09:00 06/02/25 09:12 Thiamine Hcl 200 Mg/2 Ml Vial IV PUSH 100 mg QAM CHANDNI Administration Radiology Results: ITS Impressions Chest X-Ray 06/01/25 22:13 IMPRESSION: No acute cardiopulmonary process. Head CT 06/02/25 08:09 IMPRESSION: 1. No acute intracranial process. 2. Age-related changes including mild to moderate diffuse volume loss and mild scattered white matter hypoattenuation consistent with chronic small vessel ischemic disease. Labs Labs: Laboratory Results - last 24 hr 06/01/25 06/01/25 06/02/25 21:54 22:40 01:22 WBC 8.5 RBC 3.50 L Hgb 10.9 L Hct 33.1 L MCV 94.6 MCH 31.1 MCHC 32.9 RDW 13.5 Plt Count 200 MPV 9.9 Immature Gran % (Auto) 0.2 Neut % (Auto) 79.8 H Lymph % (Auto) 7.5 L [place] % (Auto) 12.0 H Eos % (Auto) 0.1 Baso % (Auto) 0.4 Lymph # (Auto) 0.64 L [place] # (Auto) 1.0 H Eos # (Auto) 0.0 Baso # (Auto) 0.0 Abs Immat Gran (auto) 0.02 Absolute Neuts (auto) 6.8 H Absolute Nucleated RBC 0.000 Nucleated RBC % 0.0 Sodium 137 Potassium 4.5 Chloride 102 Carbon Dioxide 27 Anion Gap 8 BUN 63 H D Creatinine 1.04 Estim Creat Clear Calc Not Reportable Estimated GFR > 60 Glucose 90 POC Capillary Glucose Lactic Acid 1.6 Calcium 8.7 Magnesium Total Bilirubin 1.1 AST 66 H ALT 33 Alkaline Phosphatase 86 Ammonia Troponin I 0.039 H* 0.031 D Total Protein 6.4 Albumin 3.9 Vitamin B12 Folate TSH 0.750 Urine Color Yellow Urine Appearance Clear Urine pH 6.5 Ur Specific [place] 1.021 Urine Protein Trace Urine Glucose (UA) Negative Urine Ketones Trace H Ur Blood (Man) Negative Urine Nitrate Negative Urine Bilirubin Negative Urine Urobilinogen 0.2 Leukocyte Esterase Rfl Trace H Urine RBC 0-2 Urine WBC 0-5 Ur Squamous Epith Cells None seen Urine Bacteria None seen Urine Casts 3-5 Salicylates Urine Opiates Screen Negative Urine Methadone Screen Negative Acetaminophen Ur Barbiturates Screen Negative Ur Phencyclidine Scrn Negative Ur Amphetamine Screen Negative U Benzodiazepines Scrn Negative Urine Cocaine Screen Negative U Cannabinoids Screen Negative Ethyl Alcohol < 10 06/02/25 06/02/25 06/02/25 02:48 04:39 04:40 WBC 7.7 RBC 3.28 L Hgb 10.1 L Hct 31.5 L MCV 96.0 MCH 30.8 MCHC 32.1 RDW 13.5 Plt Count 169 MPV 9.6 Immature Gran % (Auto) 0.4 Neut % (Auto) 66.2 Lymph % (Auto) 19.0 [place] % (Auto) 13.5 H Eos % (Auto) 0.5 Baso % (Auto) 0.4 Lymph # (Auto) 1.47 [place] # (Auto) 1.0 H Eos # (Auto) 0.0 Baso # (Auto) 0.0 Abs Immat Gran (auto) 0.03 Absolute Neuts (auto) 5.1 Absolute Nucleated RBC 0.000 Nucleated RBC % 0.0 Sodium 134 L Potassium 3.5 Chloride 103 Carbon Dioxide 28 Anion Gap 3 L BUN 44 H D Creatinine 0.87 Estim Creat Clear Calc 47 Estimated GFR > 60 Glucose 117 H POC Capillary Glucose 106 H Lactic Acid Calcium 8.0 L Magnesium 2.3 Total Bilirubin 0.7 AST 52 ALT 26 Alkaline Phosphatase 85 Ammonia < 9 L Troponin I Total Protein 5.5 L Albumin 3.2 L Vitamin B12 383.0 Folate > 20.0 H TSH Urine Color Urine Appearance Urine pH Ur Specific [place] Urine Protein Urine Glucose (UA) Urine Ketones Ur Blood (Man) Urine Nitrate Urine Bilirubin Urine Urobilinogen Leukocyte Esterase Rfl Urine RBC Urine WBC Ur Squamous Epith Cells Urine Bacteria Urine Casts Salicylates < 1.0 L Urine Opiates Screen Urine Methadone Screen Acetaminophen < 10 L Ur Barbiturates Screen Ur Phencyclidine Scrn Ur Amphetamine Screen U Benzodiazepines Scrn Urine Cocaine Screen U Cannabinoids Screen Ethyl Alcohol 06/02/25 12:09 WBC RBC Hgb Hct MCV MCH MCHC RDW Plt Count MPV Immature Gran % (Auto) Neut % (Auto) Lymph % (Auto) [place] % (Auto) Eos % (Auto) Baso % (Auto) Lymph # (Auto) [place] # (Auto) Eos # (Auto) Baso # (Auto) Abs Immat Gran (auto) Absolute Neuts (auto) Absolute Nucleated RBC Nucleated RBC % Sodium Potassium Chloride Carbon Dioxide Anion Gap BUN Creatinine Estim Creat Clear Calc Estimated GFR Glucose POC Capillary Glucose 88 Lactic Acid Calcium Magnesium Total Bilirubin AST ALT Alkaline Phosphatase Ammonia Troponin I Total Protein Albumin Vitamin B12 Folate TSH Urine Color Urine Appearance Urine pH Ur Specific [place] Urine Protein Urine Glucose (UA) Urine Ketones Ur Blood (Man) Urine Nitrate Urine Bilirubin Urine Urobilinogen Leukocyte Esterase Rfl Urine RBC Urine WBC Ur Squamous Epith Cells Urine Bacteria Urine Casts Salicylates Urine Opiates Screen Urine Methadone Screen Acetaminophen Ur Barbiturates Screen Ur Phencyclidine Scrn Ur Amphetamine Screen U Benzodiazepines Scrn Urine Cocaine Screen U Cannabinoids Screen Ethyl Alcohol
--- NOTE | 2025-06-02 16:23 | P.CONNEU_ITS ---
Assessment and Plan Assessment and plan (1) Altered mental status: Code(s): R41.82 - Altered mental status, unspecified Status: Acute (2) Alcohol use disorder: Code(s): F10.90 - Alcohol use, unspecified, uncomplicated Status: Acute Plan The patient seems to be doing better this afternoon however in view of the change in mental status and alcohol level being 0 over the time he arrived about agree with checking in is MRI and EEG. Also he had been given thiamine which is steadily good idea. She will follow the results of MRI and also EEG. Salt otherwise pillows and vitamin-D also has been ordered. A CT scan of the brain was performed did not show any significant abnormalities. I reviewed the films and agree with the findings. Blood work shows hemoglobin low at 10.1 however WBC in the contour normal. Vitamin B12 level was 383 persistent within normal range free floating within the normal range. Liver enzymes within normal range. Consult date: 06/02/25 HPI: Caio Teran is a 79 year old male with history of alcoholism was found wandering around [place]. He stated that he was trying to see if 1 of the cost would like to drink beer with him. The patient was confused when he arrived here and actually this morning also is confused but as the day has gone on he has gradually improved. I saw him around 4:20 p.m. and at that time he was very pleasant and able to talk but he denies any physical symptoms he does admit to drinking alcohol fairly frequently previous to that he had not had any drink for last 3 days. The history of head trauma. He does not have any family or any children. Review of Systems 2 Review of Systems: Patient denies any symptoms at this time [facility] Past Medical History Medical History (Updated 06/02/25 @ 15:16 by Burton Pena MD) Alcohol use disorder Surgical History Surgical History No significant past surgical history Social History Social History Smoking status: Current every day smoker Alcohol intake: current Substance use: unknown Spiritual care concerns: No Meds Home Medications and Allergies Allergies Allergy/AdvReac Type Severity Reaction Status Date / Time No Known Allergies Allergy Unverified 10/29/15 18:09 Vital Signs Vital Signs - 24 hr 06/01/25 21:38 06/01/25 23:21 06/02/25 00:22 Temperature Pulse Rate 86 82 91 Respiratory Rate 20 18 17 Blood Pressure 133/122 H 125/64 116/64 Pulse Oximetry 100 99 Oxygen Delivery 06/02/25 00:23 06/02/25 00:30 06/02/25 00:31 Temperature Pulse Rate 93 85 85 Respiratory Rate 20 18 18 Blood Pressure 99/58 L Pulse Oximetry 99 96 96 Oxygen Delivery 06/02/25 00:45 06/02/25 00:46 06/02/25 00:47 Temperature Pulse Rate 84 83 83 Respiratory Rate 17 17 18 Blood Pressure 90/60 L Pulse Oximetry 97 97 97 Oxygen Delivery 06/02/25 01:23 06/02/25 01:30 06/02/25 01:37 Temperature Pulse Rate 76 74 76 Respiratory Rate 19 19 Blood Pressure 101/60 Pulse Oximetry 100 Oxygen Delivery 06/02/25 01:38 06/02/25 01:45 06/02/25 01:46 Temperature Pulse Rate 74 80 84 Respiratory Rate 20 22 H 22 H Blood Pressure 124/62 Pulse Oximetry 100 100 100 Oxygen Delivery 06/02/25 02:00 06/02/25 02:01 06/02/25 02:15 Temperature Pulse Rate 74 75 74 Respiratory Rate 18 18 16 Blood Pressure 123/58 L Pulse Oximetry 97 99 100 Oxygen Delivery 06/02/25 02:16 06/02/25 02:30 06/02/25 02:31 Temperature Pulse Rate 74 76 75 Respiratory Rate 19 17 17 Blood Pressure 129/65 110/59 L Pulse Oximetry 100 Oxygen Delivery 06/02/25 02:45 06/02/25 02:46 06/02/25 03:00 Temperature Pulse Rate 75 73 73 Respiratory Rate 17 17 15 Blood Pressure 129/73 Pulse Oximetry Oxygen Delivery 06/02/25 03:01 06/02/25 03:15 06/02/25 03:16 Temperature Pulse Rate 77 70 73 Respiratory Rate 16 17 17 Blood Pressure 123/61 116/63 Pulse Oximetry Oxygen Delivery 06/02/25 03:30 06/02/25 03:31 06/02/25 03:45 Temperature Pulse Rate 71 70 65 Respiratory Rate 18 17 16 Blood Pressure 114/67 Pulse Oximetry Oxygen Delivery 06/02/25 03:46 06/02/25 04:00 06/02/25 04:01 Temperature Pulse Rate 66 62 98 Respiratory Rate 18 20 22 H Blood Pressure 128/61 116/76 Pulse Oximetry Oxygen Delivery 06/02/25 04:15 06/02/25 05:10 06/02/25 05:12 Temperature 98.1 F Pulse Rate 77 62 Respiratory Rate 17 18 Blood Pressure 113/61 Pulse Oximetry 100 100 Oxygen Delivery Room Air 06/02/25 06:00 06/02/25 07:53 06/02/25 07:53 Temperature 97.5 F L Pulse Rate 64 58 L Respiratory Rate 12 Blood Pressure 103/57 L Pulse Oximetry 100 100 Oxygen Delivery Room Air 06/02/25 08:00 06/02/25 08:00 06/02/25 10:00 Temperature Pulse Rate 47 L 75 Respiratory Rate Blood Pressure Pulse Oximetry Oxygen Delivery Room Air 06/02/25 12:00 06/02/25 12:00 06/02/25 12:00 Temperature 97.6 F Pulse Rate 73 68 Respiratory Rate 16 Blood Pressure 123/55 L Pulse Oximetry 100 Oxygen Delivery Room Air 06/02/25 14:00 Temperature Pulse Rate 78 Respiratory Rate Blood Pressure Pulse Oximetry Oxygen Delivery Exam 2 Const: General: cooperative, well developed and alert O rientation/consciousness: oriented to person, oriented to place and oriented to time HENMT: Head: atraumatic Mouth: Yes oropharynx normal Eyes: Alignment and Position: position normal Pupils: Equal, round and reactive pupils present EOM: EOMs intact bilaterally Neck: Neck: supple Resp: Effort & Inspection: normal respiratory effort Skin: General skin exam: normal color Neuro: Cranial nerves: Yes CN's II-XII intact bilaterally, Yes facial sensation intact/muscles of mastication intact, Yes Equal, round and reactive pupils present, Yes Bilaterally intact EOM present, Yes Nystagmus not present, Yes facial symmetry, Yes Midline tongue present, Yes Symmetric palate elevation present and Yes Ability to bilaterally elevate shoulders present Cognition (Neuro): normal cognition Speech: normal speech Motor exam (neuro): 5/5 motor strength present throughout, Motor fasciculations not present, Normal motor muscle tone present throughout and Motor abnormalities not present S ensory Exam: normal sensation Coordination: [id number] test normal and Normal rapid alternating movements of the distal upper extremity present (Neuro) Results Labs 06/02/25 04:40 06/02/25 04:39 Labs: Short CBC 06/01/25 06/02/25 Range/Units 21:54 04:40 WBC 8.5 7.7 (4.5-10.0) K/mm3 Hgb 10.9 L 10.1 L (14.0-18.0) g/dL Hct 33.1 L 31.5 L (42.0-52.0) % Plt Count 200 169 (150-375) k/mm3 BMP 06/01/25 06/02/25 21:54 04:39 Sodium 137 134 L Potassium 4.5 3.5 Chloride 102 103 Carbon Dioxide 27 28 BUN 63 H D 44 H D Creatinine 1.04 0.87 Glucose 90 117 H Calcium 8.7 8.0 L Cardiac Enzymes 06/01/25 06/02/25 Range/Units 21:54 01:22 Troponin I 0.039 H* 0.031 D (0.000-0.034) ng/mL Liver Function 06/01/25 06/02/25 Range/Units 21:54 04:39 Total Bilirubin 1.1 0.7 (0.2-1.3) mg/dL AST 66 H 52 (17-59) U/L ALT 33 26 (6-50) U/L Alkaline Phosphatase 86 85 (38-126) U/L Albumin 3.9 3.2 L (3.5-5.1) g/dL Urine 06/01/25 Range/Units 22:40 Urine Color Yellow (Yellow) Urine Appearance Clear (Clear) Urine pH 6.5 (5.0-9.0) Ur Specific [place] 1.021 (1.001-1.035) Urine Protein Trace (Negative) mg/dL Urine Glucose (UA) Negative (Negative) mg/dL
[2025-06-02] MEDS: DEXTROSE 5%/0.9% SOD CHL 1,000 ML 70 ML IV CONT (19:57)
[2025-06-03] VITALS (21 sets, daily range): BP systolic 105–159; BP diastolic 41–73; PULSE 72–143; RESP 16–24; TEMP 36.7–37.2; O2SAT 98–100
[2025-06-03] MEDS: DEXTROSE 5%/0.9% SOD CHL 1,000 ML 70 ML IV CONT ×2 (04:06→18:32)
[2025-06-03 04:47] LABS: Hematocrit 31.2 % (42.0-52.0); Hemoglobin 9.8 g/dL (14.0-18.0); Immature Granulocyte Percent A 0.3 % (0-0.5); Lymphocytes Absolute Auto 1.03 K/mm3 (0.9-3.2); Mean Corpuscular HGB Conc 31.4 g/dl (32-36); Mean Corpuscular Hemoglobin 30.8 pg (26-34); Mean Corpuscular Volume 98.1 fl (80-100); Nucleated Red Blood Cells Absolute Auto 0.000 K/mm3 (0.0-0.012); Nucleated Red Blood Cells Perc 0.0 % (0.0-0.2); Platelet Count Result 167 k/mm3 (150-375); Red Blood Count 3.18 M/mm3 (4.6-6.20); White Blood Count 12.5 K/mm3 (4.5-10.0)
[2025-06-03 05:27] LABS: Alanine Aminotransferase 23 U/L (6-50); Albumin Level 3.3 g/dL (3.5-5.1); Alkaline Phosphatase 75 U/L (38-126); Anion Gap 2 mmol/L (4-12); Aspartate Amino Transferase 39 U/L (17-59); Bilirubin,Total 0.4 mg/dL (0.2-1.3); Blood Urea Nitrogen 25 mg/dL (9-20); Calcium 8.0 mg/dL (8.4-10.2); Carbon Dioxide 26 mmol/L (22-30); Chloride 104 mmol/L (98-107); Estimated CRCL calculation 57 ml/min; Estimated Glomerular Filt Rate > 60; Glucose 99 mg/dL (65-110); Magnesium 2.0 mg/dL (1.6-2.3); Potassium 3.7 mmol/L (3.4-5.0); Sodium 132 mmol/L (137-145); Total Protein 5.7 g/dL (6.3-8.2)
[2025-06-03 05:38] LABS: Syphilis IgG/IgM Antibody Non-Reactive (Nonreactive)
[2025-06-03 05:44] LABS: Iron 31 ug/dL (49-181)
[2025-06-03 05:53] LABS: Percent Iron Saturation 11 % (20-50)
[2025-06-03] MEDS: LORazepam INJ (*CRX) 2 MG/ML VIAL 1 MG IV PUSH (06:00)
--- NOTE | 2025-06-03 06:08 | PM.EVENT ---
Event Note Event Note Event Note: Code purple was called because patient was uncooperative in trying to get out of bed. She had a CIWA score of 19. Patient had just received Ativan 1 mg for the CIWA score of 19 without improvement in symptoms. CIWA score remained elevated subsequently I gave an order for 2 mg IV Ativan and soft wrist restraints.
[2025-06-03] MEDS: LORazepam INJ (*CRX) 2 MG/ML VIAL IV PUSH ×3 (06:30→23:14)
--- NOTE | 2025-06-03 06:53 | PC.NURSE ---
0245 Patient received cell 2 cell phones from his belongings that were locked in the the IMU secured safe.
--- NOTE | 2025-06-03 06:56 | PC.NURSE ---
0549 Patient was trying to get out the the bed, took off court monitor, and pulkling at IV. Per patient I am leaving and getting out of here. Patient was unable to be redirected. He was combative with staff and verbally aggressive. Khanh magana was called.
[2025-06-03 08:46] LABS: Ferritin 79.50 ng/mL (11.1-264)
[2025-06-03] MEDS: POTASSIUM/PHOSPHORUS/SODIUM 1.5 GM PACKET 1 PACKET PO (10:04)
[2025-06-03] MEDS: PANTOPRAZOLE SODIUM IV 40 MG VIAL IV PUSH (10:05)
[2025-06-03] MEDS: THIAMINE HCL 200 MG/2 ML VIAL 100 MG IV PUSH (10:05)
[2025-06-03] MEDS: FOLIC ACID 1 MG/0.2 ML INJ IV PUSH (10:05)
--- NOTE | 2025-06-03 10:53 | P.PNIM_ITS ---
Progress Note: A&P Assessment and Plan (1) Altered mental status: Code(s): R41.82 - Altered mental status, unspecified Status: Acute Assessment and Plan: Patient brought to emergency room because of confusion. Patient was aggressive in the emergency room the did require Ativan IV and Haldol IV. Baseline mental status unclear but patient was seen in September in the ED and only alert and oriented x2. He was however intoxicated at that time. CT the brain showed no acute intracranial process but did show mild-moderate diffuse volume loss. Chest x-ray was clear. EKG showed normal sinus rhythm with sinus arrhythmia and left BBB. 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 Mild anemia noted. B12 and folate normal. Ammonia <9. TSH normal. RPR non- reactive, VitD level normal. Consider Korsakoff with his confabulation and memory impairment. Consider Alzheimer Neuro consulted and appareciate their input. Check MRI brain (2) Elevated troponin: Code(s): R79.89 - Other specified abnormal findings of blood chemistry Status: Acute Assessment and Plan: Troponin elevated at 0.039 with next value normal. EKG showing no acute ST-T wave changes. 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 CXR is clear. Elevated Trop could be related to episodes of tachycardia. Monitor on tele. (3) Elevated BUN: Code(s): R79.9 - Abnormal finding of blood chemistry, unspecified Status: Acute Assessment and Plan: BUN 63 and Cr 1.04 on admission felt related to dehydration. Urine ketones trace. BUN, Cr better with IV fluids. Assess swallow and start diet. (4) Alcohol use disorder: Code(s): F10.90 - Alcohol use, unspecified, uncomplicated Status: Acute Assessment and Plan: Patient has alcohol use disorder per chart. Thiamine, Folate and MVI started. Have Ativan available for evidence of withdrawal. Consider adding librium scheduled Continue CIWA (5) Anemia: Code(s): D64.9 - Anemia, unspecified Status: Acute Assessment and Plan: Hgb low but stable in the 10 range. B12, folate normal. Iron studies show iron deficiency with ISat 11%. Continue PPI. Plan Disp - unclear if this patient is homeless. He does not have capacity to make decisions at this time Code status -full DVT prophylaxis - SCDs. Subjective Date/time seen: 06/03/25 10:53 Interval history: 79yo male with alcohol use disorder here for AMS. Patient more agitated this morning requiring Ativan IV. He arouses but very somnolent this morning. Review of Systems Review of Systems: ROS unobtainable: Yes unobtainable due to mental status Exam Narrative: AF 99.0 159/73 89 24 100% ra Gen - NARD Chest - clear anteriorly, nml RR CV - RRR S1/S2. Tele showing runs of sinus rhythm with sinus arrhytmias Abd - Soft, NT/ND, Positive BS Ext - No pedal edema Neuro - somnolent Psych - unable to assess Skin - Warm and dry Objective Data Vital Signs Vital Signs: Vital Signs - 24 hr 06/02/25 12:00 06/02/25 12:00 06/02/25 12:00 Temperature 97.6 F Pulse Rate 73 68 Pulse Rate [Monitor] Respiratory Rate 16 Blood Pressure 123/55 L Pulse Oximetry 100 Oxygen Delivery Room Air 06/02/25 14:00 06/02/25 15:31 06/02/25 16:00 Temperature 98.1 F Pulse Rate 78 66 Pulse Rate [Monitor] 72 Respiratory Rate 20 Blood Pressure 108/53 L Pulse Oximetry 100 Oxygen Delivery 06/02/25 16:00 06/02/25 16:00 06/02/25 16:00 Temperature Pulse Rate 68 Pulse Rate [Monitor] 89 Respiratory Rate Blood Pressure 108/53 L Pulse Oximetry Oxygen Delivery Room Air 06/02/25 18:00 06/02/25 20:00 06/02/25 20:00 Temperature 98.2 F Pulse Rate 74 70 Pulse Rate [Monitor] 84 Respiratory Rate 18 Blood Pressure 107/53 L Pulse Oximetry 97 Oxygen Delivery 06/02/25 20:00 06/02/25 20:00 06/02/25 21:19 Temperature Pulse Rate 72 Pulse Rate [Monitor] Respiratory Rate Blood Pressure Pulse Oximetry 97 Oxygen Delivery Room Air Room Air 06/02/25 22:00 06/03/25 00:00 06/03/25 00:00 Temperature Pulse Rate 82 Pulse Rate [Monitor] 84 Respiratory Rate Blood Pressure Pulse Oximetry Oxygen Delivery Room Air 06/03/25 00:00 06/03/25 00:00 06/03/25 02:00 Temperature 98.1 F Pulse Rate 84 86 75 Pulse Rate [Monitor] Respiratory Rate 18 Blood Pressure 127/51 L Pulse Oximetry 100 Oxygen Delivery 06/03/25 04:00 06/03/25 04:00 06/03/25 04:00 Temperature Pulse Rate 76 Pulse Rate [Monitor] 86 Respiratory Rate Blood Pressure Pulse Oximetry Oxygen Delivery Room Air 06/03/25 04:00 06/03/25 06:00 06/03/25 06:01 Temperature 98.3 F Pulse Rate 105 H 104 H Pulse Rate [Monitor] 110 H Respiratory Rate 17 Blood Pressure 121/58 L Pulse Oximetry 100 Oxygen Delivery 06/03/25 06:11 06/03/25 06:26 06/03/25 06:41 Temperature 98.5 F 98.5 F 98.2 F Pulse Rate 80 75 77 Pulse Rate [Monitor] Respiratory Rate 16 18 18 Blood Pressure 124/59 L 122/64 126/60 Pulse Oximetry 100 100 100 Oxygen Delivery 06/03/25 06:56 06/03/25 08:00 Temperature 98.6 F 99.0 F Pulse Rate 80 89 Pulse Rate [Monitor] Respiratory Rate 18 24 H Blood Pressure 124/66 159/73 H Pulse Oximetry 100 100 Oxygen Delivery Intake/Output Intake/Output: Intake & Output 05/31/25 06/01/25 06/02/25 06/03/25 23:59 23:59 23:59 23:59 Intake Total 2720 1014.5 Output Total 450 800 Balance 2270 214.5 Meds/Results Medications: Active Medications Generic Name Dose Route Start Last Admin Trade Name Freq PRN Reason Stop Dose Admin Folic Acid 1 mg 06/02/25 09:00 06/03/25 10:05 Folic Acid 1 Mg/0.2 Ml Inj IV PUSH 1 mg QAM CHANDNI Administration Dextrose/Sodium Chloride 1,000 mls @ 70 mls/hr 06/02/25 01:50 06/03/25 04:06 Dextrose 5% Sodium Chloride 0.9% IV CONT 70 mls/hr .[id number] CHANDNI Administration Pantoprazole Sodium 40 mg 06/02/25 09:00 06/03/25 10:05 Pantoprazole Sodium Iv 40 Mg Vial IV PUSH 40 mg QAM CHANDNI Administration Thiamine HCl 100 mg 06/02/25 09:00 06/03/25 10:05 Thiamine Hcl 200 Mg/2 Ml Vial IV PUSH 100 mg QAM CHANDNI Administration Radiology Results: ITS Impressions Chest X-Ray 06/01/25 22:13 IMPRESSION: No acute cardiopulmonary process. Head CT 06/02/25 08:09 IMPRESSION: 1. No acute intracranial process. 2. Age-related changes including mild to moderate diffuse volume loss and mild scattered white matter hypoattenuation consistent with chronic small vessel ischemic disease. Labs Labs: Laboratory Results - last 24 hr 06/02/25 06/03/25 06/03/25 12:09 01:11 04:12 WBC RBC Hgb Hct MCV MCH MCHC RDW Plt Count MPV Immature Gran % (Auto) Neut % (Auto) Lymph % (Auto) Tillman % (Auto) Eos % (Auto) Baso % (Auto) Lymph # (Auto) Tillman # (Auto) Eos # (Auto) Baso # (Auto) Abs Immat Gran (auto) Absolute Neuts (auto) Absolute Nucleated RBC Nucleated RBC % Sodium Potassium Chloride Carbon Dioxide Anion Gap BUN Creatinine Estim Creat Clear Calc Estimated GFR Glucose POC Capillary Glucose 88 104 Calcium Phosphorus Magnesium Iron TIBC % Saturation Ferritin Total Bilirubin AST ALT Alkaline Phosphatase Total Protein Albumin Vitamin D 25-Hydroxy Syphilis IgG/IgM Ab Non-reactive RPR Titer RPR 06/03/25 06/03/25 04:20 06:44 WBC 12.5 H RBC 3.18 L Hgb 9.8 L Hct 31.2 L MCV 98.1 MCH 30.8 MCHC 31.4 L RDW 13.4 Plt Count 167 MPV 10.0 Immature Gran % (Auto) 0.3 Neut % (Auto) 81.4 H Lymph % (Auto) 8.2 L Tillman % (Auto) 8.8 H Eos % (Auto) 1.0 Baso % (Auto) 0.3 Lymph # (Auto) 1.03 Tillman # (Auto) 1.1 H Eos # (Auto) 0.1 Baso # (Auto) 0.0 Abs Immat Gran (auto) 0.04 H Absolute Neuts (auto) 10.2 H Absolute Nucleated RBC 0.000 Nucleated RBC % 0.0 Sodium 132 L Potassium 3.7 Chloride 104 Carbon Dioxide 26 Anion Gap 2 L BUN 25 H D Creatinine 0.70 Estim Creat Clear Calc 57 Estimated GFR > 60 Glucose 99 POC Capillary Glucose 112 H Calcium 8.0 L Phosphorus 1.7 L Magnesium 2.0 Iron 31 L TIBC 275 % Saturation 11 L Ferritin 79.50 Total Bilirubin 0.4 AST 39 ALT 23 Alkaline Phosphatase 75 Total Protein 5.7 L Albumin 3.3 L Vitamin D 25-Hydroxy 39.2 Syphilis IgG/IgM Ab RPR Titer Cancelled RPR Cancelled
--- NOTE | 2025-06-03 12:17 | PCSTNOTE ---
06/03/25 Speech Therapist attempted to complete BSE on 2 occasions this date. Patient remains poorly arousable to complete BSE. Will attempt at later time.
[2025-06-03] MEDS: chlordiazePOXIDE (*CRX) 25 MG CAPSULE PO (18:30)
--- NOTE | 2025-06-03 23:12 | PC.NURSE ---
This patient, Caio Teran, was transferred to [[id number] ] on 06/03/25 at 2305. Personal belongings sent with patient. Report given to [Sal ]. Appropriate documentation sent with patient.
--- NOTE | 2025-06-04 | ECHO_ITS ---
Patient Info Name: Caio Teran Age: 79 years : 1945 Gender: Male Ht: 73 in Wt: 118 lbs BSA: 1.64 m2 HR: 74 bpm BP: 122 / 54 mmHg Technical Quality: Fair Exam Date: 06/04/2025 9:53 AM Patient Status: I Admit Date: 06/03/2025 Exam Type: CA echo doppler color flow Complete two-dimensional, color flow and Doppler transthoracic echocardiogram is performed. Staff Referring Physician: Burton Pena MD Surgery Technician: Carolyn Platt Attending Provider: Aziza Corley Summary 1. Complete two-dimensional, color flow and Doppler transthoracic echocardiogram is performed. 2. Left ventricular systolic function is normal, estimated at 60-65. 3. The left ventricular diastolic function is grade I diastolic dysfunction. 4. There is mild mitral valve regurgitation.Systolic anterior motion of the mitral valve seen without significant gradient in LVOT. 5. There is mild tricuspid valve regurgitation. 6. No pulmonary hypertension, estimated pulmonary arterial systolic pressure is 27 mmHg. Left Ventricle Left ventricular chamber dimension is normal. Left ventricular systolic function is normal, estimated at 60-65. There is no increased left ventricular wall thickness. Left ventricular septal wall motion is normal. The left ventricular diastolic function is grade I diastolic dysfunction. Right Ventricle Right ventricular chamber dimension is normal. Right ventricular systolic function is normal. Left Atria Left atrial chamber dimension is normal. Right Atria Right atrial chamber dimension is normal. Aortic Valve The aortic valve is trileaflet. There is no aortic valve sclerosis. There is no aortic valve stenosis. There is no aortic valve regurgitation. Pulmonic Valve The pulmonic valve is normal. There is no pulmonic valve stenosis. There is no pulmonic regurgitation. Mitral Valve The mitral valve has normal leaflets. There is no mitral valve stenosis. There is mild mitral valve regurgitation.Systolic anterior motion of the mitral valve seen without significant gradient in LVOT. Tricuspid Valve The tricuspid valve leaflets are normal. There is no significant tricuspid valve stenosis. There is mild tricuspid valve regurgitation. No pulmonary hypertension, estimated pulmonary arterial systolic pressure is 27 mmHg. Pericardium/Pleural The pericardium appears normal. There is no pericardial effusion. Inferior Vena Cava Normal inferior vena cava with >50% collapse upon inspiration consistent with normal right atrial pressure, 5 mmHg. Aorta The aortic root size at the sinus of Valsalva is normal. The prox ascending aorta size is normal. Left Ventricular Outflow Tract Name Value Normal LVOT 2D LVOT Diameter 1.9 cm LVOT Doppler LVOT Peak Velocity 194 cm/s LVOT Peak Gradient 10 mmHg LVOT Mean Gradient 6 mmHg LVOT VTI 43 cm LVOT VTI/AV VTI Ratio 0.7 LVOT Stroke Volume 121 ml LVOT CO 7.1 l/min LVOT CI 4.4 l/min/m2 Pulmonic Valve Name Value Normal RVOT Doppler RVOT Peak Velocity 75 cm/s RVOT Peak Gradient 2 mmHg PV Doppler PV Peak Velocity 128 cm/s PV Peak Gradient 7 mmHg Mitral Valve Name Value Normal MV Regurgitation Doppler MR Peak Gradient 106 mmHg MV Diastolic Function MV E Peak Velocity 61 cm/s MV A Peak Velocity 73 cm/s MV E/A 0.8 MV Decel Time (PW) 229 ms Tricuspid Valve Name Value Normal TV Regurgitation Doppler TR Peak Velocity 233 cm/s TR Peak Gradient 21 mmHg Estimated PAP/RSVP RA Pressure 5 mmHg <=5 PA Systolic Pressure 27 mmHg <36 RV Systolic Pressure 27 mmHg <36 TV Annular TDI TV Lateral Ene s' Velocity 14.0 cm/s >=9.5 Aorta Name Value Normal Ascending Aorta Ao Root Diameter (MM) 3.2 cm Ao Root Diam Index (MM) 1.9 cm/m2 Aortic Valve Name Value Normal AV Doppler AV Peak Velocity 276 cm/s AV Peak Gradient 23 mmHg AV Mean Gradient 14 mmHg AV VTI 60 cm AV Area (Cont Eq VTI) 2.0 cm2 >=3.0 AV Area (Cont Eq Avinash) 2.0 cm2 AV DI (Avinash) 0.71 AV Regurgitation 2D LVOT Area 2.8 cm2 Ventricles Name Value Normal LV Dimensions 2D/MM IVS Diastolic Thickness (2D) 0.8 cm 0.6-1.0 LVID Diastole (2D) 4.2 cm 4.2-5.8 LVIW Diastolic Thickness (2D) 1.1 cm 0.6-1.0 LVID Systole (2D) 2.2 cm 2.5-4.0 LVOT Diameter 1.9 cm LV Mass (2D Cubed) 118.75 g 88.00-224.00 LV Mass Index (2D Cubed) 73 g/m2 49-115 Relative Wall Thickness (2D) 0.50 <=0.42 LV Fractional Shortening/Ejection Fraction 2D/MM LV Fractional Shortening (2D) 47 % 25-43 LV EF (2D Teichholz) 78 % LV Diastolic Volume (4C MOD) 59 ml LV EF (4C MOD) 63 % LV Diastolic Volume (2C MOD) 34 ml LV EF (2C MOD) 54 % LV Diastolic Volume (BP MOD) 46 ml 62-150 LV Diastolic Volume Index (BP MOD) 28 ml/m2 34-74 LV Systolic Volume (BP MOD) 19 ml 21-61 LV Systolic Volume Index (BP MOD) 12 ml/m2 11-31 LV EF (BP MOD) 59 % 52-72 LV Diastolic Length (4C) 8.0 cm LV Systolic Length (4C) 7.6 cm LV Stroke Volume (4C MOD) 37 ml Atria Name Value Normal LA Dimensions LA Dimension (MM) 1.8 cm 3.0-4.0 LA Volume (4C A-L) 25 ml LA Volume (BP A-L) 21 ml RA Dimensions RA Systolic Major Campbell Length (4C) 4.7 cm 2.1-2.7 RA Area (4C) 15.0 cm2 <=18.0 Report Signatures
[2025-06-04 04:00] VITALS: BP 122/54; PULSE 103; PULSE 73; RESP 17; TEMP 36.7; O2SAT 100; O2SAT 99
[2025-06-04 05:20] LABS: Hematocrit 30.0 % (42.0-52.0); Hemoglobin 9.9 g/dL (14.0-18.0); Mean Corpuscular HGB Conc 33.0 g/dl (32-36); Mean Corpuscular Hemoglobin 31.7 pg (26-34); Mean Corpuscular Volume 96.2 fl (80-100); Platelet Count Result 155 k/mm3 (150-375); Red Blood Count 3.12 M/mm3 (4.6-6.20); White Blood Count 13.7 K/mm3 (4.5-10.0)
[2025-06-04 05:53] LABS: Albumin Level 3.0 g/dL (3.5-5.1); Anion Gap 3 mmol/L (4-12); Blood Urea Nitrogen 14 mg/dL (9-20); Calcium 8.1 mg/dL (8.4-10.2); Carbon Dioxide 23 mmol/L (22-30); Chloride 104 mmol/L (98-107); Estimated CRCL calculation 67 ml/min; Estimated Glomerular Filt Rate > 60; Glucose 89 mg/dL (65-110); Magnesium 2.1 mg/dL (1.6-2.3); Potassium 3.4 mmol/L (3.4-5.0); Sodium 130 mmol/L (137-145)
--- NOTE | 2025-06-04 08:46 | PCSTNOTE ---
Please refer to the Bedside Swallow Evaluation in the EMR. Please note, silent aspiration cannot be ruled out at bedside. The patient is a 79 year old male admitted with AMS. The patient was referred for a bedside swallow evaluation to rule out aspiration risk. The patient was positioned upright in bed and assisted with morning meal to evaluate swallow function. The following consistencies were provided: thin liquid via cup, soft solids. The patient would answer questions but required multiple redirection due to a semi lethargic state. Oral stage: The patient required extra time for mastication of soft solids due to being edentulous and had noted pocketing. He was able to clear when provided a liquid wash or if he maintained alertness and was given extra time and verbal cues. Oral preparation was timely with thin liquids. Pharyngeal stage: When presented cup trials of thin liquid and soft solids, no clinical signs of aspiration were noted. Swallow initiation was timely with good laryngeal elevation. Recommend: 1. minced/moist diet/level 5, 2. thin liquid/level 0, 3. small bites and drinks, 4. upright when eating, 5. feed only when alert. Suspect follow function is within normal limits. Biggest barrier is level of alertness.
[2025-06-04] MEDS: THIAMINE HCL 200 MG/2 ML VIAL 100 MG IV PUSH (08:53)
[2025-06-04] MEDS: PANTOPRAZOLE SODIUM IV 40 MG VIAL IV PUSH (08:53)
[2025-06-04 11:05] VITALS: BMI 15.6
[2025-06-04] MEDS: FOLIC ACID 1 MG/0.2 ML INJ IV PUSH (11:36)
--- NOTE | 2025-06-04 11:56 | P.PNIM_ITS ---
Progress Note: A&P Assessment and Plan (1) Altered mental status: Code(s): R41.82 - Altered mental status, unspecified Status: Acute Assessment and Plan: Patient brought to emergency room because of confusion. Patient was aggressive in the emergency room the did require Ativan IV and Haldol IV. Baseline mental status unclear but patient was seen in September in the ED and only alert and oriented x2. He was however intoxicated at that time. CT the brain showed no acute intracranial process but did show mild-moderate diffuse volume loss. Chest x-ray was clear. EKG showed normal sinus rhythm with sinus arrhythmia and left BBB. 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 Mild anemia noted. B12 and folate normal. Ammonia <9. TSH normal. RPR non- reactive, VitD level normal. Consider Korsakoff with his confabulation and memory impairment. Consider Alzheimer Neuro consulted and appreciate their input. Brain MRI ordered Having withdrawal symptoms so CIWA protocl started. Schedule Librium added but too somnolent so will stop this. (2) Elevated troponin: Code(s): R79.89 - Other specified abnormal findings of blood chemistry Status: Acute Assessment and Plan: Troponin elevated at 0.039 with next value normal. EKG showing no acute ST-T wave changes. 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 CXR is clear. Elevated Trop could be related to episodes of tachycardia. Echo pending (3) Elevated BUN: Code(s): R79.9 - Abnormal finding of blood chemistry, unspecified Status: Acute Assessment and Plan: BUN 63 and Cr 1.04 on admission felt related to dehydration. Urine ketones trace. BUN, Cr better with IV fluids. Speech therapy input appreciated. Diet started. (4) Alcohol use disorder: Code(s): F10.90 - Alcohol use, unspecified, uncomplicated Status: Acute Assessment and Plan: Patient has alcohol use disorder per chart. Thiamine, Folate and MVI started. Have Ativan available for evidence of withdrawal. Librium added but now held. Continue CIWA (5) Anemia: Code(s): D64.9 - Anemia, unspecified Status: Acute Assessment and Plan: Hgb low but stable in the 10 range. B12, folate normal. Iron studies show iron deficiency with ISat 11%. Continue PPI. Plan Disp - unclear if this patient is homeless. He does not have capacity to make decisions at this time Code status -full DVT prophylaxis - SCDs. Subjective Date/time seen: 06/04/25 11:56 Interval history: 79yo male with alcohol use disorder here for AMS. Patient was more agitated last night requiring Ativan IV. More somnolent this morning. Review of Systems Review of Systems: ROS unobtainable: Yes unobtainable due to mental status Exam Narrative: AF 98.0 122/54 73 17 99% ra Gen - NARD Chest - clear anteriorly, nml RR CV - RRR S1/S2 Abd - Soft, NT/ND, Positive BS Ext - No pedal edema Neuro - arouses easily but sleepy. Psych - calm and cooperative Skin - Warm and dry Objective Data Vital Signs Vital Signs: Vital Signs - 24 hr 06/03/25 12:00 06/03/25 12:00 06/03/25 12:00 Temperature Pulse Rate 76 Pulse Rate [Monitor] 75 Respiratory Rate Blood Pressure 116/41 L Pulse Oximetry Oxygen Delivery Room Air 06/03/25 14:00 06/03/25 16:00 06/03/25 16:00 Temperature 98.6 F Pulse Rate 93 72 Pulse Rate [Monitor] Respiratory Rate 16 Blood Pressure 105/66 Pulse Oximetry 98 Oxygen Delivery Room Air 06/03/25 16:00 06/03/25 16:00 06/03/25 18:00 Temperature Pulse Rate 76 81 Pulse Rate [Monitor] 81 Respiratory Rate Blood Pressure 105/66 Pulse Oximetry Oxygen Delivery 06/03/25 18:23 06/03/25 19:46 06/03/25 20:00 Temperature Pulse Rate Pulse Rate [Monitor] 92 143 H 100 Respiratory Rate Blood Pressure 119/47 L 118/60 Pulse Oximetry Oxygen Delivery 06/03/25 20:00 06/03/25 20:00 06/03/25 20:09 Temperature 98.9 F Pulse Rate 94 95 Pulse Rate [Monitor] Respiratory Rate 17 Blood Pressure 118/60 Pulse Oximetry 100 Oxygen Delivery Room Air 06/03/25 22:00 06/04/25 04:00 06/04/25 04:00 Temperature 98.0 F Pulse Rate 103 H 103 H 73 Pulse Rate [Monitor] Respiratory Rate 17 17 Blood Pressure 122/54 L Pulse Oximetry 100 99 Oxygen Delivery Room Air 06/04/25 08:00 Temperature Pulse Rate Pulse Rate [Monitor] Respiratory Rate Blood Pressure Pulse Oximetry Oxygen Delivery Room Air Intake/Output Intake/Output: Intake & Output 06/01/25 06/02/25 06/03/25 06/04/25 23:59 23:59 23:59 23:59 Intake Total 2720 2314.5 118 Output Total 450 2400 500 Balance 2270 -85.5 -382 Meds/Results Medications: Active Medications Generic Name Dose Route Start Last Admin Trade Name Freq PRN Reason Stop Dose Admin Chlordiazepoxide HCl 10 mg 06/04/25 09:00 Chlordiazepoxide (*Crx) 10 Mg Capsule PO TID CHANDNI Folic Acid 1 mg 06/02/25 09:00 06/04/25 11:36 Folic Acid 1 Mg/0.2 Ml Inj IV PUSH 1 mg QAM CHANDNI Administration Dextrose/Sodium Chloride 1,000 mls @ 70 mls/hr 06/02/25 01:50 06/03/25 18:32 Dextrose 5% Sodium Chloride 0.9% IV CONT 70 mls/hr .[id number] CHANDNI Administration Lorazepam 2 mg 06/03/25 18:20 06/03/25 23:14 Lorazepam Inj (*Crx) 2 Mg/Ml Vial IV PUSH 2 mg Q2HR PRN Administration Alcohol Withdrawal Pantoprazole Sodium 40 mg 06/02/25 09:00 06/04/25 08:53 Pantoprazole Sodium Iv 40 Mg Vial IV PUSH 40 mg QAM CHANDNI Administration Perflutren Lipid Microsphere 0 ml 06/03/25 17:36 Perflutren Lipid Microspheres 1.5 Ml Vial Diluted To 10 Ml Total Volume IV PUSH 06/06/25 17:36 ONCE PRN adequate visualization Protocol Thiamine HCl 100 mg 06/02/25 09:00 06/04/25 08:53 Thiamine Hcl 200 Mg/2 Ml Vial IV PUSH 100 mg QAM CHANDNI Administration Radiology Results: ITS Impressions Chest X-Ray 06/01/25 22:13 IMPRESSION: No acute cardiopulmonary process. Head CT 06/02/25 08:09 IMPRESSION: 1. No acute intracranial process. 2. Age-related changes including mild to moderate diffuse volume loss and mild scattered white matter hypoattenuation consistent with chronic small vessel ischemic disease. Labs Labs: Laboratory Results - last 24 hr 06/04/25 05:07 WBC 13.7 H RBC 3.12 L Hgb 9.9 L Hct 30.0 L MCV 96.2 MCH 31.7 MCHC 33.0 RDW 13.4 Plt Count 155 MPV 9.8 Sodium 130 L Potassium 3.4 Chloride 104 Carbon Dioxide 23 Anion Gap 3 L BUN 14 D Creatinine 0.59 L Estim Creat Clear Calc 67 Estimated GFR > 60 Glucose 89 Calcium 8.1 L Phosphorus 2.1 L Magnesium 2.1 Albumin 3.0 L
--- NOTE | 2025-06-04 12:57 | PCPTNOTE ---
Attempted PT evaluation, pt unarousable per nursing. Will follow.
[2025-06-04 17:09] VITALS: BP 110/60
[2025-06-04 20:00] VITALS: PULSE 100
[2025-06-04 20:48] VITALS: BP 102/56; PULSE 79; RESP 17; TEMP 36.7; O2SAT 100
[2025-06-04] MEDS: DEXTROSE 5%/0.9% SOD CHL 1,000 ML 70 ML IV CONT (21:26)
[2025-06-04 23:24] VITALS: PULSE 100
[2025-06-04] MEDS: LORazepam INJ (*CRX) 2 MG/ML VIAL IV PUSH (23:28)
[2025-06-04 23:45] VITALS: O2SAT 90
[2025-06-05 05:24] LABS: Hematocrit 26.9 % (42.0-52.0); Hemoglobin 8.8 g/dL (14.0-18.0); Immature Granulocyte Percent A 0.6 % (0-0.5); Lymphocytes Absolute Auto 1.15 K/mm3 (0.9-3.2); Mean Corpuscular HGB Conc 32.7 g/dl (32-36); Mean Corpuscular Hemoglobin 31.3 pg (26-34); Mean Corpuscular Volume 95.7 fl (80-100); Nucleated Red Blood Cells Absolute Auto 0.000 K/mm3 (0.0-0.012); Nucleated Red Blood Cells Perc 0.0 % (0.0-0.2); Platelet Count Result 167 k/mm3 (150-375); Red Blood Count 2.81 M/mm3 (4.6-6.20); White Blood Count 9.5 K/mm3 (4.5-10.0)
[2025-06-05 05:48] LABS: Albumin Level 3.0 g/dL (3.5-5.1); Anion Gap 2 mmol/L (4-12); Blood Urea Nitrogen 19 mg/dL (9-20); Calcium 8.3 mg/dL (8.4-10.2); Carbon Dioxide 30 mmol/L (22-30); Chloride 101 mmol/L (98-107); Estimated CRCL calculation 59 ml/min; Estimated Glomerular Filt Rate > 60; Glucose 105 mg/dL (65-110); Potassium 3.5 mmol/L (3.4-5.0); Sodium 133 mmol/L (137-145)
--- NOTE | 2025-06-05 06:48 | P.CDI_ITS ---
CDI Query Clarification Request BMI: 15.6 Nutritional Diagnostic Statement: Please refer to the comprehensive nutrition assessment for further information. If you agree with diagnosis of Severe Protein Calorie Malnutrition as related to inadequate protein-energy intake with increased protein-energy needs in setting of chronic disease as evidenced by minimal oral intake for > 1-2 months; severe subcutaneous fat loss (orbital fat pads) and severe muscle wasting (temporalis, clavicle). Please specify severity if known: * Mild * Moderate * Severe * Other/Unknown
[2025-06-05 06:50] VITALS: BP 112/46; PULSE 67; RESP 16; TEMP 36.4; O2SAT 100
[2025-06-05] MEDS: THIAMINE HCL 200 MG/2 ML VIAL 100 MG IV PUSH (08:47)
[2025-06-05] MEDS: PANTOPRAZOLE SODIUM IV 40 MG VIAL IV PUSH (08:47)
[2025-06-05] MEDS: FOLIC ACID 1 MG/0.2 ML INJ IV PUSH (08:47)
[2025-06-05 12:00] VITALS: BP 111/50; PULSE 76; RESP 18; TEMP 36.7; O2SAT 100
--- NOTE | 2025-06-05 13:47 | PM.IMPN ---
Progress Note: A&P Assessment and Plan (1) Altered mental status: Code(s): R41.82 - Altered mental status, unspecified Status: Acute Assessment and Plan: Patient brought to emergency room because of confusion. Patient was aggressive in the emergency room the did require Ativan IV and Haldol IV. Baseline mental status unclear but patient was seen in September in the ED and only alert and oriented x2. He was however intoxicated at that time. CT the brain showed no acute intracranial process but did show mild-moderate diffuse volume loss. Chest x-ray was clear. EKG showed normal sinus rhythm with sinus arrhythmia and left BBB. 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 Mild anemia noted. B12 and folate normal. Ammonia <9. TSH normal. RPR non-reactive, VitD level normal. Consider Korsakoff with his confabulation and memory impairment. Consider Alzheimer Neuro consulted and appreciate their input. Brain MRI ordered but cancelled Was having withdrawal symptoms so CIWA protocol started. Add Seroquel at night. (2) Elevated troponin: Code(s): R79.89 - Other specified abnormal findings of blood chemistry Status: Acute Assessment and Plan: Troponin elevated at 0.039 with next value normal. EKG showing no acute ST-T wave changes. 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 CXR is clear. Echo showing EF 60-65%, Grade I diastolic dysfunction and mild MR. Elevated Trop could be related to episodes of tachycardia. (3) Elevated BUN: Code(s): R79.9 - Abnormal finding of blood chemistry, unspecified Status: Acute Assessment and Plan: BUN 63 and Cr 1.04 on admission felt related to dehydration. Urine ketones trace. BUN, Cr better with IV fluids. Speech therapy input appreciated. Diet started. Stop IV fluids (4) Alcohol use disorder: Code(s): F10.90 - Alcohol use, unspecified, uncomplicated Status: Acute Assessment and Plan: Patient has alcohol use disorder per chart. Thiamine, Folate and MVI started. Have Ativan available for evidence of withdrawal. Librium added but now held. Continue CIWA. Change to oral route for meds. (5) Anemia: Code(s): D64.9 - Anemia, unspecified Status: Acute Assessment and Plan: Hgb low and dropped to 8.8 range. B12, folate normal. Iron studies show iron deficiency with ISat 11%. Continue PPI. Follow Plan Severe Protein Calorie Malnutrition - related to inadequate protein-energy intake with increased protein-energy needs in setting of chronic disease as evidenced by minimal oral intake for > 1-2 months; severe subcutaneous fat loss (orbital fat pads) and severe muscle wasting (temporalis, clavicle). Supplements added. Disp - Trying to arrange for transfer to the [place] Code status -full DVT prophylaxis - SCDs. Subjective Date/time seen: 06/05/25 13:47 Interval history: 79yo male with alcohol use disorder here for AMS. Patient up to chair today. Feels well. Still confused. Exam Narrative: AF 97.3 111/50 76 18 100% ra Gen - NARD sitting up in chair Chest - CTA bilaterally CV - RRR S1/S2 Abd - Soft, NT/ND, Positive BS Ext - No pedal edema Neuro - alert, oriented to location and [place] name. Psych - calm and cooperative. becomes mildly irate when talking about money being stolen from him Skin - Warm and dry Objective Data Vital Signs Vital Signs: Vital Signs - 24 hr 06/04/25 15:50 06/04/25 17:09 06/04/25 20:00 Temperature Pulse Rate Pulse Rate [Monitor] 100 Respiratory Rate Blood Pressure 110/60 Pulse Oximetry Oxygen Delivery Room Air 06/04/25 20:00 06/04/25 20:48 06/04/25 23:24 Temperature 98.1 F Pulse Rate 79 Pulse Rate [Monitor] 100 Respiratory Rate 17 Blood Pressure 102/56 L Pulse Oximetry 100 Oxygen Delivery Room Air 06/04/25 23:45 06/05/25 06:50 06/05/25 08:45 Temperature 97.6 F Pulse Rate 67 Pulse Rate [Monitor] Respiratory Rate 16 Blood Pressure 112/46 L Pulse Oximetry 90 100 Oxygen Delivery Room Air Room Air 06/05/25 12:00 Temperature 97.3 F L Pulse Rate 76 Pulse Rate [Monitor] Respiratory Rate 18 Blood Pressure 111/50 L Pulse Oximetry 100 Oxygen Delivery Intake/Output Intake/Output: Intake & Output 06/02/25 06/03/25 06/04/25 06/05/25 23:59 23:59 23:59 23:59 Intake Total 2720 2314.5 1908 600 Output Total 450 2400 900 600 Balance 2270 -85.5 1008 0 Meds/Results Medications: Active Medications Generic Name Dose Route Start Last Admin Trade Name Freq PRN Reason Stop Dose Admin Folic Acid 1 mg 06/02/25 09:00 06/05/25 08:47 Folic Acid 1 Mg/0.2 Ml Inj IV PUSH 1 mg QAM CHANDNI Administration Dextrose/Sodium Chloride 1,000 mls @ 70 mls/hr 06/02/25 01:50 06/05/25 08:47 Dextrose 5% Sodium Chloride 0.9% IV CONT Not Given .[id number] CHANDNI Lorazepam 2 mg 06/03/25 18:20 06/04/25 23:28 Lorazepam Inj (*Crx) 2 Mg/Ml Vial IV PUSH 2 mg Q2HR PRN Administration Alcohol Withdrawal Pantoprazole Sodium 40 mg 06/02/25 09:00 06/05/25 08:47 Pantoprazole Sodium Iv 40 Mg Vial IV PUSH 40 mg QAM CHANDNI Administration Perflutren Lipid Microsphere 0 ml 06/03/25 17:36 Perflutren Lipid Microspheres 1.5 Ml Vial Diluted To 10 Ml Total Volume IV PUSH 06/06/25 17:36 ONCE PRN adequate visualization Protocol Quetiapine Fumarate 12.5 mg 06/05/25 21:00 Quetiapine Fumarate 12.5 Mg Tablet PO HS CHANDNI Thiamine HCl 100 mg 06/02/25 09:00 06/05/25 08:47 Thiamine Hcl 200 Mg/2 Ml Vial IV PUSH 100 mg QAM CHANDNI Administration Radiology Results: ITS Impressions Chest X-Ray 06/01/25 22:13 IMPRESSION: No acute cardiopulmonary process. Head CT 06/02/25 08:09 IMPRESSION: 1. No acute intracranial process. 2. Age-related changes including mild to moderate diffuse volume loss and mild scattered white matter hypoattenuation consistent with chronic small vessel ischemic disease. Labs Labs: Laboratory Results - last 24 hr 06/04/25 06/04/25 06/05/25 18:05 22:09 04:57 WBC 9.5 RBC 2.81 L Hgb 8.8 L Hct 26.9 L MCV 95.7 MCH 31.3 MCHC 32.7 RDW 13.9 Plt Count 167 MPV 9.9 Immature Gran % (Auto) 0.6 H Neut % (Auto) 74.7 H Lymph % (Auto) 12.1 L [place] % (Auto) 9.7 H Eos % (Auto) 2.7 Baso % (Auto) 0.2 Lymph # (Auto) 1.15 [place] # (Auto) 0.9 H Eos # (Auto) 0.3 Baso # (Auto) 0.0 Abs Immat Gran (auto) 0.06 H Absolute Neuts (auto) 7.1 H Absolute Nucleated RBC 0.000 Nucleated RBC % 0.0 Sodium 133 L Potassium 3.5 Chloride 101 Carbon Dioxide 30 Anion Gap 2 L BUN 19 Creatinine 0.67 L Estim Creat Clear Calc 59 Estimated GFR > 60 Glucose 105 POC Capillary Glucose 158 H 97 Calcium 8.3 L Phosphorus 2.6 Albumin 3.0 L 06/05/25 06/05/25 06:48 12:09 WBC RBC Hgb Hct MCV MCH MCHC RDW Plt Count MPV Immature Gran % (Auto) Neut % (Auto) Lymph % (Auto) [place] % (Auto) Eos % (Auto) Baso % (Auto) Lymph # (Auto) [place] # (Auto) Eos # (Auto) Baso # (Auto) Abs Immat Gran (auto) Absolute Neuts (auto) Absolute Nucleated RBC Nucleated RBC % Sodium Potassium Chloride Carbon Dioxide Anion Gap BUN Creatinine Estim Creat Clear Calc Estimated GFR Glucose POC Capillary Glucose 98 140 H Calcium Phosphorus Albumin
[2025-06-05 16:00] VITALS: BP 115/53; PULSE 69; RESP 18; TEMP 36.6; O2SAT 99
[2025-06-05 20:00] VITALS: BP 114/40; PULSE 100; PULSE 78; RESP 16; TEMP 37; O2SAT 98
[2025-06-05] MEDS: QUEtiapine FUMARATE 12.5 MG TABLET PO (20:58)
[2025-06-05] MEDS: ACETAMINOPHEN 325 MG TABLET 650 MG PO (23:03)
[2025-06-05 23:08] VITALS: BP 113/49; PULSE 80; RESP 16; TEMP 37.1; O2SAT 90
[2025-06-06] VITALS (8 sets, daily range): BP systolic 104–116; BP diastolic 53–60; PULSE 76–100; RESP 16–18; TEMP 36.6–36.8; O2SAT 97–100
[2025-06-06 00:07] LABS: Vit. B1, Whole Blood 171.6 nmol/L (66.5-200.0)
[2025-06-06 05:05] LABS: Hematocrit 23.7 % (42.0-52.0); Hemoglobin 7.9 g/dL (14.0-18.0); Mean Corpuscular HGB Conc 33.3 g/dl (32-36); Mean Corpuscular Hemoglobin 31.6 pg (26-34); Mean Corpuscular Volume 94.8 fl (80-100); Platelet Count Result 191 k/mm3 (150-375); Red Blood Count 2.50 M/mm3 (4.6-6.20); White Blood Count 8.0 K/mm3 (4.5-10.0)
--- NOTE | 2025-06-06 08:51 | PCPTNOTE ---
Patient refused treatment this session. Per RN patient is agitated, however can ask patient if he wants to do therapy. When asked patient if he wanted to participate in PT, patient refused and stated probably tomorrow.
[2025-06-06] MEDS: IRON SUCROSE COMPLEX 400 MG, IRON SUCROSE COMPLEX 100 MG in SODIUM CHLORIDE 0.9% IV 250 ML 78.57 MG IVPB (10:10)
[2025-06-06] MEDS: ACETAMINOPHEN 325 MG TABLET 650 MG PO ×2 (10:18→23:59)
--- NOTE | 2025-06-06 11:35 | PM.IMPN ---
Progress Note: A&P Assessment and Plan (1) Altered mental status: Code(s): R41.82 - Altered mental status, unspecified Status: Acute Assessment and Plan: Patient brought to emergency room because of confusion. Patient was aggressive in the emergency room the did require Ativan IV and Haldol IV. Baseline mental status unclear but patient was seen in September in the ED and only alert and oriented x2. He was however intoxicated at that time. CT the brain showed no acute intracranial process but did show mild-moderate diffuse volume loss. Chest x-ray was clear. EKG showed normal sinus rhythm with sinus arrhythmia and left BBB. 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 Mild anemia noted. B12 and folate normal. Ammonia <9. TSH normal. RPR non-reactive, VitD level normal. Consider Korsakoff with his confabulation and memory impairment. Consider Alzheimer Neuro consulted and appreciate their input. Brain MRI ordered but cancelled Was having withdrawal symptoms so CIWA protocol started. Add Seroquel at night. Still oriented x1 at bedside (2) Elevated troponin: Code(s): R79.89 - Other specified abnormal findings of blood chemistry Status: Acute Assessment and Plan: Troponin elevated at 0.039 with next value normal. EKG showing no acute ST-T wave changes. 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 CXR is clear. Echo showing EF 60-65%, Grade I diastolic dysfunction and mild MR. Elevated Trop could be related to episodes of tachycardia. (3) Elevated BUN: Code(s): R79.9 - Abnormal finding of blood chemistry, unspecified Status: Acute Assessment and Plan: BUN 63 and Cr 1.04 on admission felt related to dehydration. Urine ketones trace. BUN, Cr better with IV fluids. Speech therapy input appreciated. Diet started. Stop IV fluids (4) Alcohol use disorder: Code(s): F10.90 - Alcohol use, unspecified, uncomplicated Status: Acute Assessment and Plan: Patient has alcohol use disorder per chart. Thiamine, Folate and MVI started. Have Ativan available for evidence of withdrawal. Librium added but now held. Continue CIWA. Change to oral route for meds. (5) Anemia: Code(s): D64.9 - Anemia, unspecified Status: Acute Assessment and Plan: Hgb low and dropped to 8.8 range. B12, folate normal. Iron studies show iron deficiency with ISat 11%. Started IV iron 500/1000 Continue PPI. Follow Plan Severe Protein Calorie Malnutrition - related to inadequate protein-energy intake with increased protein-energy needs in setting of chronic disease as evidenced by minimal oral intake for > 1-2 months; severe subcutaneous fat loss (orbital fat pads) and severe muscle wasting (temporalis, clavicle). Supplements added. Right inguinal hernia Noted on exam Scrotal US Gen surgery consulted Disp - [facility] Code status -full DVT prophylaxis - Sq Lovenox Subjective Date/time seen: 06/06/25 11:35 Interval history: Comfortable at bedside Denies any pain however inguinal hernia noted on exam Review of Systems Review of Systems: All systems reviewed & are unremarkable except as noted in HPI and below (Subjective/HPI) ROS unobtainable: Yes unobtainable due to mental status Exam Narrative: AF 97.3 111/50 76 18 100% ra Gen - NARD sitting up in chair Chest - CTA bilaterally CV - RRR S1/S2 Abd - Soft, NT/ND, Positive BS Ext - No pedal edema Neuro - alert, oriented to location and [place] name. Psych - calm and cooperative. becomes mildly irate when talking about money being stolen from him Skin - Warm and dry : Rightsided inguinal hernia Const: General: comfortable Other: Obtunded, protecting airway, unkempt HENMT: Mouth: Yes dry mucous membranes Eyes: Pupils: Equal, round and reactive pupils present Neck: Neck: supple Resp: Effort & Inspection: normal respiratory effort Auscultation: clear to auscultation bilaterally Cardio: Rate: regular rate Rhythm: regular rhythm GI: Inspection: non-distended : General: Yes bladder normal to palpation Neuro: Cranial nerves: Yes Equal, round and reactive pupils present Other: Unable to perform complete examination Extrem: General: no edema Objective Data Vital Signs Vital Signs: Vital Signs - 24 hr 06/05/25 11:43 06/05/25 12:00 06/05/25 16:00 Temperature 98.1 F 97.8 F Pulse Rate 76 69 Pulse Rate [Monitor] Respiratory Rate 18 18 Blood Pressure 111/50 L 115/53 L Pulse Oximetry 100 99 Oxygen Delivery Room Air 06/05/25 20:00 06/05/25 20:00 06/05/25 20:00 Temperature 98.6 F Pulse Rate 78 Pulse Rate [Monitor] 100 Respiratory Rate 16 Blood Pressure 114/40 L Pulse Oximetry 98 Oxygen Delivery Room Air 06/05/25 23:08 06/06/25 00:00 06/06/25 04:00 Temperature 98.8 F 98.3 F Pulse Rate 80 76 Pulse Rate [Monitor] 100 Respiratory Rate 16 16 Blood Pressure 113/49 L 104/53 L Pulse Oximetry 90 100 Oxygen Delivery 06/06/25 04:00 06/06/25 08:00 06/06/25 09:50 Temperature 98.1 F Pulse Rate 90 Pulse Rate [Monitor] 98 Respiratory Rate 16 Blood Pressure 114/60 Pulse Oximetry 100 97 Oxygen Delivery Room Air Intake/Output Intake/Output: Intake & Output 06/03/25 06/04/25 06/05/25 06/06/25 23:59 23:59 23:59 23:59 Intake Total 2314.5 1908 2630 500 Output Total 2400 900 850 Balance -85.5 1008 1780 500 Meds/Results Medications: Active Medications Generic Name Dose Route Start Last Admin Trade Name Freq PRN Reason Stop Dose Admin Acetaminophen 650 mg 06/05/25 22:49 06/06/25 10:18 Acetaminophen 325 Mg Tablet PO 650 mg Q4H PRN Administration Mild Pain (1-3) or Fever Folic Acid 1 mg 06/06/25 09:00 Folic Acid 1 Mg Tablet PO DAILY [facility] Iron Sucrose 400 mg/ Iron 275 mls @ 78.571 mls/hr 06/06/25 08:59 06/06/25 10:10 Sucrose 100 mg/ Sodium IVPB 06/06/25 12:28 78.57 mls/hr Chloride ONCE ONE Administration Lorazepam 2 mg 06/03/25 18:20 06/04/25 23:28 Lorazepam Inj (*Crx) 2 Mg/Ml Vial IV PUSH 2 mg Q2HR PRN Administration Alcohol Withdrawal Ondansetron HCl 4 mg 06/06/25 11:27 Ondansetron Hcl Odt 4 Mg Tablet PO Q6H PRN Nausea And Vomiting Pantoprazole Sodium 40 mg 06/06/25 09:00 Pantoprazole 40 Mg Tablet PO QAM CHANDNI Perflutren Lipid Microsphere 0 ml 06/03/25 17:36 Perflutren Lipid Microspheres 1.5 Ml Vial Diluted To 10 Ml Total Volume IV PUSH 06/06/25 17:36 ONCE PRN adequate visualization Protocol Quetiapine Fumarate 12.5 mg 06/05/25 21:00 06/05/25 20:58 Quetiapine Fumarate 12.5 Mg Tablet PO 12.5 mg HS CHANDNI Administration Thiamine HCl 100 mg 06/06/25 09:00 Thiamine Hcl 100 Mg Tablet PO QAM [facility] Radiology Results: ITS Impressions Chest X-Ray 06/01/25 22:13 IMPRESSION: No acute cardiopulmonary process. Head CT 06/02/25 08:09 IMPRESSION: 1. No acute intracranial process. 2. Age-related changes including mild to moderate diffuse volume loss and mild scattered white matter hypoattenuation consistent with chronic small vessel ischemic disease. Labs Labs: Laboratory Results - last 24 hr 06/02/25 06/05/25 06/05/25 04:40 12:09 17:57 WBC RBC Hgb Hct MCV MCH MCHC RDW Plt Count MPV POC Capillary Glucose 140 H 95 Whole Bld Vitamin B1 171.6 06/05/25 06/06/25 06/06/25 22:36 04:36 06:18 WBC 8.0 RBC 2.50 L Hgb 7.9 L Hct 23.7 L MCV 94.8 MCH 31.6 MCHC 33.3 RDW 14.0 Plt Count 191 MPV 10.6 H POC Capillary Glucose 102 121 H Whole Bld Vitamin B1
[2025-06-06] MEDS: ONDANSETRON HCL ODT 4 MG TABLET PO (11:47)
--- NOTE | 2025-06-06 12:05 | PM.CNGS ---
Assessment and Plan Assessment and plan (1) Bilateral inguinal hernia: Code(s): K40.20 - Bilateral inguinal hernia, without obstruction or gangrene, not specified as recurrent Status: Acute Assessment and Plan: Right inguinal hernia noted by hospitalist on exam today. General surgery consulted. Upon our exam today, it was noted that bilateral reducible inguinal hernias were present. Right greater than left. Continue with conservative management. Scrotal support. No immediate surgical intervention necessary, as hernias do not appear incarcerated or strangulated. CT abdomen/pelvis ordered. Plan Discussed patient's case and plan of care with Dr. Gonzalez. History of Present Illness Consult details Consult date: 06/06/25 Reason for consult: other (inguinal hernia) Requesting physician: Chester Mohr MD Narrative: Patient is a 79-year-old male with history of alcohol use disorder who we have been asked to see in surgical consultation for an inguinal hernia. Patient was admitted to the hospital on 06/02/25 after being found walking around the police station with altered mental status. Found to be intoxicated. He was admitted to the floor, as ED provider did not feel safe discharging him home with his mental status. Thiamine, folate, MVI started. Chest x-ray EKG normal aside from known left bundle-branch block. Today upon exam, hospitalist noted right inguinal hernia. [facility] Past Medical History Medical History (Updated 06/06/25 @ 12:17 by Alejandra Escalante PA-C) Alcohol use disorder Surgical History Surgical History No significant past surgical history Social History Social History Smoking status: Unknown if ever smoked Alcohol intake: current Substance use: unknown Spiritual care concerns: No Meds Home Medications and Allergies Home Medications ?Medication ?Instructions ?Recorded ?Confirmed ?Type Unable to Obtain Home Medications 06/03/25 06/03/25 History Allergies Allergy/AdvReac Type Severity Reaction Status Date / Time No Known Allergies Allergy Unverified 10/29/15 18:09 Vital Signs Vital Signs - 24 hr 06/05/25 16:00 06/05/25 20:00 06/05/25 20:00 Temperature 97.8 F 98.6 F Pulse Rate 69 78 Pulse Rate [Monitor] 100 Respiratory Rate 18 16 Blood Pressure 115/53 L 114/40 L Pulse Oximetry 99 98 Oxygen Delivery 06/05/25 20:00 06/05/25 23:08 06/06/25 00:00 Temperature 98.8 F Pulse Rate 80 Pulse Rate [Monitor] 100 Respiratory Rate 16 Blood Pressure 113/49 L Pulse Oximetry 90 Oxygen Delivery Room Air 06/06/25 04:00 06/06/25 04:00 06/06/25 08:00 Temperature 98.3 F 98.1 F Pulse Rate 76 90 Pulse Rate [Monitor] 98 Respiratory Rate 16 16 Blood Pressure 104/53 L 114/60 Pulse Oximetry 100 100 Oxygen Delivery 06/06/25 09:50 Temperature Pulse Rate Pulse Rate [Monitor] Respiratory Rate Blood Pressure Pulse Oximetry 97 Oxygen Delivery Room Air Exam Const: General: comfortable and no acute distress Neck: Neck: supple Resp: Effort & Inspection: normal respiratory effort Cardio: Rate: regular rate : Other: Large reducible bilateral inguinal hernias. Right side larger than left. No ecchymosis or overlying skin changes. Results Labs 06/06/25 04:36 06/05/25 04:57 Labs: Abnormal lab results 06/05/25 06/06/25 06/06/25 Range/Units 12:09 04:36 06:18 RBC 2.50 L (4.6-6.20) M/mm3 Hgb 7.9 L (14.0-18.0) g/dL Hct 23.7 L (42.0-52.0) % MPV 10.6 H (7.4-10.4) fl POC Capillary Glucose 140 H 121 H (65-105) mg/dl All other labs normal.
[2025-06-06 14:08] LABS: Vitamin B2, Whole Blood 209 ug/L (137-370)
[2025-06-07] VITALS (15 sets, daily range): BP systolic 98–130; BP diastolic 45–61; PULSE 61–98; RESP 14–18; TEMP 36.5–37.1; O2SAT 99–100
[2025-06-07 05:19] LABS: Immature Granulocyte Percent A 2.5 % (0-0.5); Lymphocytes Absolute Auto 1.04 K/mm3 (0.9-3.2); Mean Corpuscular HGB Conc 31.8 g/dl (32-36); Mean Corpuscular Hemoglobin 30.7 pg (26-34); Mean Corpuscular Volume 96.5 fl (80-100); Nucleated Red Blood Cells Absolute Auto 0.040 K/mm3 (0.0-0.012); Nucleated Red Blood Cells Perc 0.5 % (0.0-0.2); Platelet Count Result 182 k/mm3 (150-375); Red Blood Count 1.99 M/mm3 (4.6-6.20); White Blood Count 7.8 K/mm3 (4.5-10.0)
[2025-06-07 05:33] LABS: Hemoglobin 6.1 g/dL (14.0-18.0)
[2025-06-07 05:34] LABS: Hematocrit 19.2 % (42.0-52.0)
[2025-06-07 05:43] LABS: Alanine Aminotransferase 14 U/L (6-50); Albumin Level 2.8 g/dL (3.5-5.1); Alkaline Phosphatase 60 U/L (38-126); Anion Gap 2 mmol/L (4-12); Aspartate Amino Transferase 27 U/L (17-59); Bilirubin,Total 0.2 mg/dL (0.2-1.3); Blood Urea Nitrogen 24 mg/dL (9-20); Calcium 8.3 mg/dL (8.4-10.2); Carbon Dioxide 29 mmol/L (22-30); Chloride 100 mmol/L (98-107); Estimated CRCL calculation 57 ml/min; Estimated Glomerular Filt Rate > 60; Glucose 104 mg/dL (65-110); Magnesium 2.0 mg/dL (1.6-2.3); Potassium 3.6 mmol/L (3.4-5.0); Sodium 131 mmol/L (137-145); Total Protein 5.1 g/dL (6.3-8.2)
[2025-06-07] MEDS: SODIUM CHLORIDE 0.9% IV 250 ML 30 ML IV CONT (06:25)
--- NOTE | 2025-06-07 06:32 | P.PNCROSS_ITS ---
Event Note Event Note Event Note: Received a call regarding critical hemoglobin dropped to 6.1. Yesterday was 7. 9. Patient is altered LOC, blood transfusion ordered with implied/emergent consent after verifying the patient does not have a documented orthodox preference [employer]. No stool specimen produced yesterday or today to obtain Hemoccult. Ordered 2 units PRBCs with instructions to obtain type and cross and post transfusion H&H 2 hours after the 2nd unit.
[2025-06-07] MEDS: FOLIC ACID 1 MG TABLET PO (08:05)
[2025-06-07] MEDS: THIAMINE HCL 100 MG TABLET PO (08:06)
[2025-06-07] MEDS: PANTOPRAZOLE 40 MG TABLET PO (08:06)
--- NOTE | 2025-06-07 09:36 | PM.PNGS ---
Progress Note: A&P Assessment and Plan (1) Bilateral inguinal hernia: Code(s): K40.20 - Bilateral inguinal hernia, without obstruction or gangrene, not specified as recurrent Status: Acute Assessment and Plan: Hernia is not incarcerated or strangulated. Consider elective outpatient repair of hernia. Apparently, he is being transferred [place]. General surgery at the [place] can further manage this issue. Continue with conservative management. Scrotal support. No immediate surgical intervention necessary. (2) Anemia: Code(s): D64.9 - Anemia, unspecified Status: Acute Assessment and Plan: Hgb 6.1 today. Currently receiving 2 units pRBC. Plan Discussed patient's case and plan of care with Dr. Gonzalez. Subjective Subjective Date/Time Seen: 06/07/25 09:36 Interval history: Patient's mental status seems to be improved today. Able to provide a bit more history. He states that he does sometimes have pain in his testicles and experiences constipation and pain with urination. Endorses that they fluctuate in size, but that the right testicle is always larger than the left. No abdominal pain, nausea, or vomiting. Patient did have a Hgb of 6.1 today. Currently receiving pRBCs. Exam GI: Inspection: non-distended GI Palp: Yes Soft to palpation, No Tenderness to palpation present (GI), No Guarding due to palpation present (GI) and Yes Hernia present : Other: Bilateral inguinal hernias obviously present on exam. R > L. No surrounding erythema. Objective Data Vital Signs Vital Signs: Vital Signs - 24 hr 06/06/25 09:50 06/06/25 12:00 06/06/25 12:00 Temperature 98 F Pulse Rate 90 Pulse Rate [Monitor] 98 Respiratory Rate 16 Blood Pressure 114/60 116/58 L Pulse Oximetry 97 100 Oxygen Delivery Room Air 06/06/25 16:00 06/06/25 20:00 06/06/25 20:00 Temperature 98.1 F 98.1 F Pulse Rate 90 87 Pulse Rate [Monitor] Respiratory Rate 17 18 Blood Pressure 115/60 110/58 L Pulse Oximetry 100 100 Oxygen Delivery Room Air 06/07/25 00:00 06/07/25 04:00 06/07/25 07:43 Temperature 98.0 F 98.2 F 98.1 F Pulse Rate 97 87 67 Pulse Rate [Monitor] Respiratory Rate 18 18 14 Blood Pressure 127/61 112/48 L 102/52 L Pulse Oximetry 100 100 99 Oxygen Delivery 06/07/25 08:03 Temperature 97.9 F Pulse Rate 70 Pulse Rate [Monitor] Respiratory Rate 16 Blood Pressure 116/45 L Pulse Oximetry 99 Oxygen Delivery Intake/Output Intake/Output: Intake & Output 06/04/25 06/05/25 06/06/25 06/07/25 23:59 23:59 23:59 23:59 Intake Total 1908 2630 620 250 Output Total 900 850 Balance 1008 1780 620 250 Meds/Results Medications: Active Medications Generic Name Dose Route Start Last Admin Trade Name Freq PRN Reason Stop Dose Admin Acetaminophen 650 mg 06/05/25 22:49 06/06/25 23:59 Acetaminophen 325 Mg Tablet PO 650 mg Q4H PRN Administration Mild Pain (1-3) or Fever Enoxaparin Sodium 40 mg 06/07/25 09:00 06/07/25 09:18 Enoxaparin 40 Mg/0.4 Ml Syringe SUB-Q Not Given DAILY CHANDNI Folic Acid 1 mg 06/06/25 09:00 06/07/25 08:05 Folic Acid 1 Mg Tablet PO 1 mg DAILY CHANDNI Administration Sodium Chloride 250 mls @ 30 mls/hr 06/07/25 06:03 06/07/25 06:25 Normal Saline Iv IV CONT 06/07/25 14:22 30 mls/hr .Q8H20M STA Administration Iron Sucrose 400 mg/ Iron 275 mls @ 78.571 mls/hr 06/07/25 09:00 Sucrose 100 mg/ Sodium IVPB 06/07/25 12:29 Chloride ONCE ONE Lorazepam 2 mg 06/03/25 18:20 06/04/25 23:28 Lorazepam Inj (*Crx) 2 Mg/Ml Vial IV PUSH 2 mg Q2HR PRN Administration Alcohol Withdrawal Ondansetron HCl 4 mg 06/06/25 11:27 06/06/25 11:47 Ondansetron Hcl Odt 4 Mg Tablet PO 4 mg Q6H PRN Administration Nausea And Vomiting Pantoprazole Sodium 40 mg 06/06/25 09:00 06/07/25 08:06 Pantoprazole 40 Mg Tablet PO 40 mg QAM CHANDNI Administration Quetiapine Fumarate 12.5 mg 06/05/25 21:00 06/06/25 20:45 Quetiapine Fumarate 12.5 Mg Tablet PO Not Given HS CHANDNI Thiamine HCl 100 mg 06/06/25 09:00 06/07/25 08:06 Thiamine Hcl 100 Mg Tablet PO 100 mg QAM CHANDNI Administration Radiology Results: ITS Impressions Chest X-Ray 06/01/25 22:13 IMPRESSION: No acute cardiopulmonary process. Head CT 06/02/25 08:09 IMPRESSION: 1. No acute intracranial process. 2. Age-related changes including mild to moderate diffuse volume loss and mild scattered white matter hypoattenuation consistent with chronic small vessel ischemic disease. Abdomen/Pelvis CT 06/06/25 13:48 IMPRESSION: 1. Large bilateral inguinal hernias containing nonobstructed bowel. 2: Diffuse bladder wall thickening, suspicious for cystitis. Clinically correlate. 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 Labs Labs: Laboratory Results - last 24 hr 06/02/25 06/06/25 06/06/25 04:40 11:59 16:48 WBC RBC Hgb Hct MCV MCH MCHC RDW Plt Count MPV Immature Gran % (Auto) Neut % (Auto) Lymph % (Auto) Sullivan % (Auto) Eos % (Auto) Baso % (Auto) Lymph # (Auto) Sullivan # (Auto) Eos # (Auto) Baso # (Auto) Abs Immat Gran (auto) Absolute Neuts (auto) Absolute Nucleated RBC Nucleated RBC % Sodium Potassium Chloride Carbon Dioxide Anion Gap BUN Creatinine Estim Creat Clear Calc Estimated GFR Glucose POC Capillary Glucose 130 H 134 H Calcium Magnesium Total Bilirubin AST ALT Alkaline Phosphatase Total Protein Albumin Whole Bld Vitamin B2 209 Vitamin B6 7.6 Blood Type Antibody Screen Crossmatch 06/07/25 06/07/25 06/07/25 00:21 04:39 05:56 WBC 7.8 RBC 1.99 L Hgb 6.1 L* Hct 19.2 L* MCV 96.5 MCH 30.7 MCHC 31.8 L RDW 14.1 Plt Count 182 MPV 10.8 H Immature Gran % (Auto) 2.5 H Neut % (Auto) 68.1 Lymph % (Auto) 13.4 L Sullivan % (Auto) 14.3 H Eos % (Auto) 1.4 Baso % (Auto) 0.3 Lymph # (Auto) 1.04 Sullivan # (Auto) 1.1 H Eos # (Auto) 0.1 Baso # (Auto) 0.0 Abs Immat Gran (auto) 0.19 H Absolute Neuts (auto) 5.3 Absolute Nucleated RBC 0.040 H Nucleated RBC % 0.5 H Sodium 131 L Potassium 3.6 Chloride 100 Carbon Dioxide 29 Anion Gap 2 L BUN 24 H Creatinine 0.71 Estim Creat Clear Calc 57 Estimated GFR > 60 Glucose 104 POC Capillary Glucose 125 H 116 H Calcium 8.3 L Magnesium 2.0 Total Bilirubin 0.2 AST 27 ALT 14 Alkaline Phosphatase 60 Total Protein 5.1 L Albumin 2.8 L Whole Bld Vitamin B2 Vitamin B6 Blood Type Antibody Screen Crossmatch 06/07/25 06:11 WBC RBC Hgb Hct MCV MCH MCHC RDW Plt Count MPV Immature Gran % (Auto) Neut % (Auto) Lymph % (Auto) Sullivan % (Auto) Eos % (Auto) Baso % (Auto) Lymph # (Auto) Sullivan # (Auto) Eos # (Auto) Baso # (Auto) Abs Immat Gran (auto) Absolute Neuts (auto) Absolute Nucleated RBC Nucleated RBC % Sodium Potassium Chloride Carbon Dioxide Anion Gap BUN Creatinine Estim Creat Clear Calc Estimated GFR Glucose POC Capillary Glucose Calcium Magnesium Total Bilirubin AST ALT Alkaline Phosphatase Total Protein Albumin Whole Bld Vitamin B2 Vitamin B6 Blood Type B Positive Antibody Screen Negative Crossmatch See Detail
--- NOTE | 2025-06-07 09:43 | P.CONGI_ITS ---
Assessment and Plan Assessment and plan (1) ROSA M (iron deficiency anemia): Qualifiers: Iron deficiency anemia type: unspecified iron deficiency Qualified Code(s): D50.9 - Iron deficiency anemia, unspecified Code(s): D50.9 - Iron deficiency anemia, unspecified Status: Acute (2) Constipation: Qualifiers: Constipation type: chronic idiopathic constipation Qualified Code(s): K 59.04 - Chronic idiopathic constipation Code(s): K59.00 - Constipation, unspecified Status: Acute (3) Dysphagia: Qualifiers: Dysphagia type: esophageal phase Qualified Code(s): R13.19 - Other dysphagia Code(s): R13.10 - Dysphagia, unspecified Status: Acute (4) Nausea and vomiting: Qualifiers: Vomiting type: bilious vomiting Qualified Code(s): R11.14 - Bilious vomiting Code(s): R11.2 - Nausea with vomiting, unspecified Status: Acute (5) Acid reflux: Qualifiers: Esophagitis presence: esophagitis presence not specified Qualified Code(s): K21.9 - Gastro-esophageal reflux disease without esophagitis Code(s): K21.9 - Gastro-esophageal reflux disease without esophagitis Status: Acute (6) Weight loss: Code(s): R63.4 - Abnormal weight loss Status: Acute (7) Melena: Code(s): K92.1 - Melena Status: Acute (8) Hyponatremia: Code(s): E87.1 - Hypo-osmolality and hyponatremia Status: Acute (9) Hypokalemia: Code(s): E87.6 - Hypokalemia Status: Acute (10) Altered mental status: Qualifiers: Altered mental status type: unspecified Qualified Code(s): R41.82 - Altered mental status, unspecified Code(s): R41.82 - Altered mental status, unspecified Status: Acute (11) ETOH abuse: Code(s): F10.10 - Alcohol abuse, uncomplicated Status: Acute Plan 1. ROSA M/constipation: Last colonoscopy unknown but patient thinks that he may have had 1 recently possibly done at the [place]. One unit PRBC's given one infusing. On admission Hgb 11 and H/H has been trending down since admission. Labs today show Hgb 6, HCT 19, MCV 97, platelets 182. Labs this admission show iron 31, TIBC 275, iron saturation 11%, ferritin 79.50. B12 and folate normal. Patient states that he has been having intermittent episodes of black stools but was unable to say when the last episode was. IV iron and folic acid given this admission. No current signs of active GI bleeding. Patient admits to constipation prior to admission stating that sometimes he can go a month without a BM, could not verify this information. He has tried no OTC medications for his constipation. He is having BM's since admission but unable to provide information on consistency or color of stool. Patient noted to have large bilateral inguinal hernias without bowel obstruction, surgery salt patient and surgical intervention recommended at this time. DDX: GI blood loss vs malabsorption vs malnutrition vs neoplasm * Continue PPI * plan for colonoscopy and EGD tomorrow * hold next Lovenox dose * continue to monitor H/H and transfuse as needed to keep Hgb >7 * clear liquid diet * bowel prep to start this evening * NPO after midnight * patient will likely need to start a bowel regimen following colonoscopy. Start with Miralax 1-2 times daily based on symptoms and response 2. Dysphagia/nausea/vomiting/acid reflux/weight loss/melena: EGD Hx unknown. Patient admits to frequent swallowing difficulty with solids, liquids, and pills. He also states that recently he has been having frequent reflux, nausea and vomiting. Nausea and vomiting improved since admission. Patient states that he has lost around 10 lb over the past month but this could not be verified. He is currently on a regular/minced diet. DDX: Esophageal ring or stricture versus motility disorder versus peptic ulcer disease versus inadequate acid suppression versus other GI. * EGD tomorrow * if EGD is unremarkable he will need a swallow study to further evaluate dysphagia * Continue supportive care with antiemetics * Continue PPI * care with NSAIDs and aspirin * Further recommendations to follow endoscopy 3. Hyponatremia/hypokalemia: Sodium and potassium were normal on admission and today sodium 131 and potassium 3.6. * Primary care team to monitor and correct 4. Altered mental status: So far no findings to explain altered mental status. CT of the head was normal. Syphilis, tox screen, ammonia, ETOH, and acetaminophen levels normal. * Primary care and neurology to continue monitoring 5. ETOH abuse: ETOH level < 10 at admission. Admits to daily alcohol use. LFT's normal. * continue CIWA protocol * alcohol cessation recommended Thank you very much for allowing me to share in the care of this very nice patient. This report may have been done utilizing a voice recognition system. Attempts have been made to correct errors. However, there may be uncorrected grammatical, spelling, and recognition errors present. GI Consult Note Consult date/time: 06/07/25 09:43 Reason for consult: Anemia and GI bleed HPI: Caio Teran is a 79 year old male with medical surgical history unknown. He presented to the ER for altered mental status after being found wandering around the police station and while in the ER became verbally aggressive. GI has been consulted for anemia and GI bleed. Patient is somewhat confused so I was unable to verify subjective information provided by the patient. Patient states that he has occasional nausea and vomiting but states that the last episode of vomiting occurred a few weeks ago. He complains of frequent swallowing difficulty with solids liquids and pills. He states that recently had a has been experiencing more reflux and has a poor appetite. He states that he has lost around 10 lb this might. Patient admits to constipation stating that ?sometimes he can go a month without pooping? and states that he occasionally has black stools but was unable to say when the last episode occurred. Patient states that he has had several bowel movements this admission but was unable to say there was any blood or black color to them. He denies any abdominal pain, bloating, odynophagia, regurgitation, early satiety or diarrhea. Patient states that he quit smoking 40 years ago. He drinks daily because ?beer is good for you? he states that recently he has been having 4-5 shots of 90 proof peppermint drinks throughout the day. He denies any NSAID, aspirin, or anticoagulant use prior to admission but is currently on Lovenox. Family medical history unknown. ENDOSCOPY HISTORY: Patient thinks he may have had a colonoscopy recently but was unable to provide any further information other than it might have been done at the [place]. Denies Hx of EGD. LABS AND STOOL STUDIES: Labs 06/07/2025: Sodium 131, potassium 3.6, BUN 24, creatinine 0.71, GFR >60, calcium 8.3, magnesium 2.0 WBC 8, Hgb 6, Hct 19, MCV 97, platelets 182 Total bilirubin 0.2, AST 27, ALT 14, Alkaline Phos 60, albumin 2.8 Labs 06/03/2025: Sodium 132, potassium 3.7, BUN 25, creatinine 0.70, GFR >60, calcium 8.0, phosphorus 1.7, magnesium 2.0 WBC 13, Hgb 10, Hct 31, MCV 98, platelets 167 Total bilirubin 0.4, AST 39, ALT 23, Alkaline Phos 75, albumin 3.3 Total iron 31, TIBC 275, iron sat 11, ferritin 79.50 Vitamin-D 39.2, B6 7.6, B12 383, folate > 20 Syphilis negative, tox screen negative, ETOH < 10, acetaminophen < 10 IMAGING: CT abd/pelvis w/contrast 06/03/2025: IMPRESSION: 1. Large bilateral inguinal hernias containing nonobstructed bowel. 2: Diffuse bladder wall thickening, suspicious for cystitis. Clinically correlate. 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 CT head 06/02/2025: IMPRESSION: 1. No acute intracranial process. 2. Age-related changes including mild to moderate diffuse volume loss and mild scattered white matter hypoattenuation consistent with chronic small vessel ischemic disease. Review of Systems 2 Review of Systems: ROS unobtainable: Yes unobtainable due to mental status (limited and unable to verify that information provided was accurate) [facility] Past Medical History Medical History (Updated 06/07/25 @ 10:49 by Emilee Denise APRN) Alcohol use disorder Surgical History Surgical History No significant past surgical history Social History Social History Smoking status: Unknown if ever smoked Alcohol intake: current Substance use: unknown Spiritual care concerns: No Meds Home Medications and Allergies Home Medications ?Medication ?Instructions ?Recorded ?Confirmed ?Type Unable to Obtain Home Medications 06/03/25 06/03/25 History Allergies Allergy/AdvReac Type Severity Reaction Status Date / Time No Known Allergies Allergy Unverified 10/29/15 18:09 Vital Signs Vital Signs - 24 hr 06/06/25 09:50 06/06/25 12:00 06/06/25 12:00 Temperature 98 F Pulse Rate 90 Pulse Rate [Monitor] 98 Respiratory Rate 16 Blood Pressure 114/60 116/58 L Pulse Oximetry 97 100 Oxygen Delivery Room Air 06/06/25 16:00 06/06/25 20:00 06/06/25 20:00 Temperature 98.1 F 98.1 F Pulse Rate 90 87 Pulse Rate [Monitor] Respiratory Rate 17 18 Blood Pressure 115/60 110/58 L Pulse Oximetry 100 100 Oxygen Delivery Room Air 06/07/25 00:00 06/07/25 04:00 06/07/25 07:43 Temperature 98.0 F 98.2 F 98.1 F Pulse Rate 97 87 67 Pulse Rate [Monitor] Respiratory Rate 18 18 14 Blood Pressure 127/61 112/48 L 102/52 L Pulse Oximetry 100 100 99 Oxygen Delivery 06/07/25 08:03 Temperature 97.9 F Pulse Rate 70 Pulse Rate [Monitor] Respiratory Rate 16 Blood Pressure 116/45 L Pulse Oximetry 99 Oxygen Delivery Exam 2 Const: General: comfortable and no acute distress HENMT: Ears: TM's normal bilaterally Face/Nose/Sinus: Normal nares present Mouth: Yes moist mucous membranes Eyes: General: appearance normal, both eyes and all related structures S clera: sclerae normal Pupils: Equal, round and reactive pupils present Neck: Neck: supple Lymphatic: lymphadenopathy not noted Resp: Effort & Inspection: normal respiratory effort Auscultation: clear to auscultation bilaterally Cardio: Rate: regular rate GI: GI Palp: Yes Soft to palpation, No Tenderness to palpation present (GI) and No Guarding due to palpation present (GI) Auscultation: normal bowel sounds Urinary Catheter: Urinary Catheter: patent and draining Neuro: Sensory Exam: normal sensation Extrem: General: normal to inspection Psych: Mental Status: mental status grossly abnormal Other: confused with sitter at bedside Results Labs 06/07/25 04:39 06/07/25 04:39 Labs: Short CBC 06/07/25 Range/Units 04:39 WBC 7.8 (4.5-10.0) K/mm3 Hgb 6.1 L* (14.0-18.0) g/dL Hct 19.2 L* (42.0-52.0) % Plt Count 182 (150-375) k/mm3 BMP 06/07/25 04:39 Sodium 131 L Potassium 3.6 Chloride 100 Carbon Dioxide 29 BUN 24 H Creatinine 0.71 Glucose 104 Calcium 8.3 L Liver Function 06/07/25 Range/Units 04:39 Total Bilirubin 0.2 (0.2-1.3) mg/dL AST 27 (17-59) U/L ALT 14 (6-50) U/L Alkaline Phosphatase 60 (38-126) U/L Albumin 2.8 L (3.5-5.1) g/dL
[2025-06-07] MEDS: IRON SUCROSE COMPLEX 400 MG, IRON SUCROSE COMPLEX 100 MG in SODIUM CHLORIDE 0.9% IV 250 ML 78.57 MG IVPB (10:18)
--- NOTE | 2025-06-07 10:55 | PCNFU ---
Nutrition Follow-Up Complete: Severe Protein Calorie Malnutrition as related to inadequate protein-energy intake with increased protein-energy needs in setting of chronic disease as evidenced by minimal oral intake for > 1-2 months; severe subcutaneous fat loss (orbital fat pads) and severe muscle wasting (temporalis, clavicle). Goal:Meet estimated nutritional needs Patient will continue current goal. Pt current nutrition is Minced and Moist, Level 5 with diet supplements. Last recorded weight is 56 kg, up from 53.7 kg on admit. Bowel Motility: Last reported BM 06/05 Labs Reviewed: Hct 19.2, Hgb 6.1, Na 131,, BUN 24 Meds Noted: Miralax, Thiamine, Folic Acid, NS Skin: WNL Additional Notes: Patient remains on Minced and Moist, Level 5 diet and tolerating. Ensure Plus High Protein are being providing BID for additional 350 kcal and 20 gm protein. Agree with diet orders at this time. Will monitor weight, labs, skin, diet orders, med every 5 days.
--- NOTE | 2025-06-07 11:25 | P.PNIM_ITS ---
Progress Note: A&P Assessment and Plan (1) Altered mental status: Qualifiers: Altered mental status type: unspecified Qualified Code(s): R41.82 - Altered mental status, unspecified Code(s): R41.82 - Altered mental status, unspecified Status: Acute Assessment and Plan: Patient brought to emergency room because of confusion. Patient was aggressive in the emergency room the did require Ativan IV and Haldol IV. Baseline mental status unclear but patient was seen in September in the ED and only alert and oriented x2. He was however intoxicated at that time. CT the brain showed no acute intracranial process but did show mild-moderate diffuse volume loss. Chest x-ray was clear. EKG showed normal sinus rhythm with sinus arrhythmia and left BBB. 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 Mild anemia noted. B12 and folate normal. Ammonia <9. TSH normal. RPR non- reactive, VitD level normal. Consider Korsakoff with his confabulation and memory impairment. Consider Alzheimer Neuro consulted and appreciate their input. Brain MRI ordered but cancelled Was having withdrawal symptoms so CIWA protocol started. Add Seroquel at night. resolved. (2) Elevated troponin: Code(s): R79.89 - Other specified abnormal findings of blood chemistry Status: Acute Assessment and Plan: Troponin elevated at 0.039 with next value normal. EKG showing no acute ST-T wave changes. 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 CXR is clear. Echo showing EF 60-65%, Grade I diastolic dysfunction and mild MR. Elevated Trop could be related to episodes of tachycardia. (3) Elevated BUN: Code(s): R79.9 - Abnormal finding of blood chemistry, unspecified Status: Acute Assessment and Plan: resolved S/p IVF Cr 0.71 and BUN 24. (4) Alcohol use disorder: Code(s): F10.90 - Alcohol use, unspecified, uncomplicated Status: Acute Assessment and Plan: Patient has alcohol use disorder per chart. Thiamine, Folate and MVI started. Have Ativan available for evidence of withdrawal. Librium added but now held. Continue CIWA. Change to oral route for meds. (5) Anemia: Code(s): D64.9 - Anemia, unspecified Status: Acute Assessment and Plan: Hb 6.1 this morning receiving 1 unit pRBC . B12, folate normal. Iron studies show iron deficiency with ISat 11%. Started IV iron 1000/1000 R/p GI bleed GI consulted Continue PPI. Follow Plan Severe Protein Calorie Malnutrition - related to inadequate protein-energy intake with increased protein-energy needs in setting of chronic disease as evidenced by minimal oral intake for > 1-2 months; severe subcutaneous fat loss (orbital fat pads) and severe muscle wasting (temporalis, clavicle). Supplements added. Right inguinal hernia Patient noted hernia is chronic CT AP showed bilateral hernia Gen surgery recommends conservative care Disp - [facility] Code status -full DVT prophylaxis - SCDs, AC on hold pending GI bleed eval Subjective Date/time seen: 06/07/25 11:25 Interval history: Comfortable at bedside noted history chronic hernia and he self reduces all the time awaitign GI Eval Review of Systems Review of Systems: All systems reviewed & are unremarkable except as noted in HPI and below (Subjective/HPI) ROS unobtainable: Yes unobtainable due to me ntal status Exam Narrative: AF 97.3 111/50 76 18 100% ra Gen - NARD sitting up in chair Chest - CTA bilaterally CV - RRR S1/S2 Abd - Soft, NT/ND, Positive BS Ext - No pedal edema Neuro - alert, oriented to location and [place] name. Psych - calm and cooperative. becomes mildly irate when talking about money being stolen from him Skin - Warm and dry : Rightsided inguinal hernia Const: General: comfortable Other: Obtunded, protecting airway, unkempt HENMT: Mouth: Yes dry mucous membranes Eyes: Pupils: Equal, round and reactive pupils present Neck: Neck: supple Resp: Effort & Inspection: normal respiratory effort Auscultation: clear to auscultation bilaterally Cardio: Rate: regular rate Rhythm: regular rhythm GI: Inspection: non-distended : General: Yes bladder normal to palpation Neuro: Cranial nerves: Yes Equal, round and reactive pupils present Other: Unable to perform complete examination Extrem: General: no edema Objective Data Vital Signs Vital Signs: Vital Signs - 24 hr 06/06/25 12:00 06/06/25 12:00 06/06/25 16:00 Temperature 98 F 98.1 F Pulse Rate 90 90 Pulse Rate [Monitor] 98 Respiratory Rate 16 17 Blood Pressure 114/60 116/58 L 115/60 Pulse Oximetry 100 100 Oxygen Delivery 06/06/25 20:00 06/06/25 20:00 06/07/25 00:00 Temperature 98.1 F 98.0 F Pulse Rate 87 97 Pulse Rate [Monitor] Respiratory Rate 18 18 Blood Pressure 110/58 L 127/61 Pulse Oximetry 100 100 Oxygen Delivery Room Air 06/07/25 04:00 06/07/25 07:43 06/07/25 08:03 Temperature 98.2 F 98.1 F 97.9 F Pulse Rate 87 67 70 Pulse Rate [Monitor] Respiratory Rate 18 14 16 Blood Pressure 112/48 L 102/52 L 116/45 L Pulse Oximetry 100 99 99 Oxygen Delivery 06/07/25 09:03 06/07/25 10:00 06/07/25 10:24 Temperature 98.1 F 98.1 F 98.1 F Pulse Rate 82 76 76 Pulse Rate [Monitor] Respiratory Rate 14 14 14 Blood Pressure 104/51 L 100/45 L 100/45 L Pulse Oximetry 100 100 100 Oxygen Delivery 06/07/25 10:40 Temperature 97.8 F Pulse Rate 61 Pulse Rate [Monitor] Respiratory Rate 14 Blood Pressure 118/56 L Pulse Oximetry 100 Oxygen Delivery Intake/Output Intake/Output: Intake & Output 06/04/25 06/05/25 06/06/25 06/07/25 23:59 23:59 23:59 23:59 Intake Total 1908 2630 620 840 Output Total 900 850 Balance 1008 1780 620 840 Meds/Results Medications: Active Medications Generic Name Dose Route Start Last Admin Trade Name Freq PRN Reason Stop Dose Admin Acetaminophen 650 mg 06/05/25 22:49 06/06/25 23:59 Acetaminophen 325 Mg Tablet PO 650 mg Q4H PRN Administration Mild Pain (1-3) or Fever Enoxaparin Sodium 40 mg 06/07/25 09:00 06/07/25 09:18 Enoxaparin 40 Mg/0.4 Ml Syringe SUB-Q Not Given DAILY CHANDNI Folic Acid 1 mg 06/06/25 09:00 06/07/25 08:05 Folic Acid 1 Mg Tablet PO 1 mg DAILY CHANDNI Administration Sodium Chloride 250 mls @ 30 mls/hr 06/07/25 06:03 06/07/25 06:25 Normal Saline Iv IV CONT 06/07/25 14:22 30 mls/hr .Q8H20M STA Administration Iron Sucrose 400 mg/ Iron 275 mls @ 78.571 mls/hr 06/07/25 09:00 06/07/25 10:18 Sucrose 100 mg/ Sodium IVPB 06/07/25 12:29 78.57 mls/hr Chloride ONCE ONE Administration Lorazepam 2 mg 06/03/25 18:20 06/04/25 23:28 Lorazepam Inj (*Crx) 2 Mg/Ml Vial IV PUSH 2 mg Q2HR PRN Administration Alcohol Withdrawal Ondansetron HCl 4 mg 06/06/25 11:27 06/06/25 11:47 Ondansetron Hcl Odt 4 Mg Tablet PO 4 mg Q6H PRN Administration Nausea And Vomiting Pantoprazole Sodium 40 mg 06/06/25 09:00 06/07/25 08:06 Pantoprazole 40 Mg Tablet PO 40 mg QAM CHANDNI Administration Polyethylene Glycol 119 gm 06/07/25 20:00 Polyethylene Glycol 3350 238 Gm Bottle PO 06/08/25 05:01 BID@0500,2000 CHANDNI Quetiapine Fumarate 12.5 mg 06/05/25 21:00 06/06/25 20:45 Quetiapine Fumarate 12.5 Mg Tablet PO Not Given HS CHANDNI Thiamine HCl 100 mg 06/06/25 09:00 06/07/25 08:06 Thiamine Hcl 100 Mg Tablet PO 100 mg QAM CHANDNI Administration Radiology Results: ITS Impressions Chest X-Ray 06/01/25 22:13 IMPRESSION: No acute cardiopulmonary process. Head CT 06/02/25 08:09 IMPRESSION: 1. No acute intracranial process. 2. Age-related changes including mild to moderate diffuse volume loss and mild scattered white matter hypoattenuation consistent with chronic small vessel ischemic disease. Abdomen/Pelvis CT 06/06/25 13:48 IMPRESSION: 1. Large bilateral inguinal hernias containing nonobstructed bowel. 2: Diffuse bladder wall thickening, suspicious for cystitis. Clinically correlate. 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 Labs Labs: Laboratory Results - last 24 hr 06/02/25 06/06/25 06/06/25 04:40 11:59 16:48 WBC RBC Hgb Hct MCV MCH MCHC RDW Plt Count MPV Immature Gran % (Auto) Neut % (Auto) Lymph % (Auto) [place] % (Auto) Eos % (Auto) Baso % (Auto) Lymph # (Auto) [place] # (Auto) Eos # (Auto) Baso # (Auto) Abs Immat Gran (auto) Absolute Neuts (auto) Absolute Nucleated RBC Nucleated RBC % Sodium Potassium Chloride Carbon Dioxide Anion Gap BUN Creatinine Estim Creat Clear Calc Estimated GFR Glucose POC Capillary Glucose 130 H 134 H Calcium Magnesium Total Bilirubin AST ALT Alkaline Phosphatase Total Protein Albumin Whole Bld Vitamin B2 209 Vitamin B6 7.6 Blood Type Antibody Screen Crossmatch 06/07/25 06/07/25 06/07/25 00:21 04:39 05:56 WBC 7.8 RBC 1.99 L Hgb 6.1 L* Hct 19.2 L* MCV 96.5 MCH 30.7 MCHC 31.8 L RDW 14.1 Plt Count 182 MPV 10.8 H Immature Gran % (Auto) 2.5 H Neut % (Auto) 68.1 Lymph % (Auto) 13.4 L [place] % (Auto) 14.3 H Eos % (Auto) 1.4 Baso % (Auto) 0.3 Lymph # (Auto) 1.04 [place] # (Auto) 1.1 H Eos # (Auto) 0.1 Baso # (Auto) 0.0 Abs Immat Gran (auto) 0.19 H Absolute Neuts (auto) 5.3 Absolute Nucleated RBC 0.040 H Nucleated RBC % 0.5 H Sodium 131 L Potassium 3.6 Chloride 100 Carbon Dioxide 29 Anion Gap 2 L BUN 24 H Creatinine 0.71 Estim Creat Clear Calc 57 Estimated GFR > 60 Glucose 104 POC Capillary Glucose 125 H 116 H Calcium 8.3 L Magnesium 2.0 Total Bilirubin 0.2 AST 27 ALT 14 Alkaline Phosphatase 60 Total Protein 5.1 L Albumin 2.8 L Whole Bld Vitamin B2 Vitamin B6 Blood Type Antibody Screen Crossmatch 06/07/25 06:11 WBC RBC Hgb Hct MCV MCH MCHC RDW Plt Count MPV Immature Gran % (Auto) Neut % (Auto) Lymph % (Auto) [place] % (Auto) Eos % (Auto) Baso % (Auto) Lymph # (Auto) [place] # (Auto) Eos # (Auto) Baso # (Auto) Abs Immat Gran (auto) Absolute Neuts (auto) Absolute Nucleated RBC Nucleated RBC % Sodium Potassium Chloride Carbon Dioxide Anion Gap BUN Creatinine Estim Creat Clear Calc Estimated GFR Glucose POC Capillary Glucose Calcium Magnesium Total Bilirubin AST ALT Alkaline Phosphatase Total Protein Albumin Whole Bld Vitamin B2 Vitamin B6 Blood Type B Positive Antibody Screen Negative Crossmatch See Detail
[2025-06-07 14:28] LABS: Hematocrit 27.9 % (42.0-52.0); Hemoglobin 9.1 g/dL (14.0-18.0)
--- NOTE | 2025-06-07 15:37 | WPDNEUROLOGY ---
Neurology EEG Report General Information Date of Study: 06/04/25 TEST electroencephalogram DIAGNOSIS episodic confusion CONDITION OF RECORDING bedside according EEG NUMBER [id number] CLINICAL HISTORY 79-year-old was brought to the hospital due to episode of confusion. He was found wandering around the police station trying to see if an office a would like to her beer with him. He then became aggressive towards the staff In the hospital. EEG DESCRIPTION During wakefulness the background activity consists of posterior dominant rhythm in theta range at approximately 6 to 7hertz with an amplitude of 15-30 microvolts. Patient was frequently drowsy and asleep. Stage I and 2 sleep were recorded during which vertex waves and sleep spindles were noted. Occasional sharp transients were noted over left mid temporal area. hyperventilation or photic stimulation were not IMPRESSION this is a mild abnormal EEG due to following is 1. Occasional sharp transients were noted over the left temporal area. These are considered nonspecific focal interictal abnormality however clinical correlation is recommended. 2. Mild diffuse background slowing suggestive of generalized encephalopathy. Patient was drowsy asleep for significant part of the recording. A follow-up study in future should be considered.
[2025-06-07] MEDS: QUEtiapine FUMARATE 12.5 MG TABLET PO (20:01)
[2025-06-08] VITALS (10 sets, daily range): BP systolic 103–131; BP diastolic 47–71; PULSE 60–98; RESP 16–24; TEMP 36.4–36.7; O2SAT 98–100
[2025-06-08 05:17] LABS: Hematocrit 28.8 % (42.0-52.0); Hemoglobin 9.3 g/dL (14.0-18.0); Mean Corpuscular HGB Conc 32.3 g/dl (32-36); Mean Corpuscular Hemoglobin 30.1 pg (26-34); Mean Corpuscular Volume 93.2 fl (80-100); Platelet Count Result 219 k/mm3 (150-375); Red Blood Count 3.09 M/mm3 (4.6-6.20); White Blood Count 8.8 K/mm3 (4.5-10.0)
[2025-06-08 05:20] LABS: Alanine Aminotransferase 17 U/L (6-50); Albumin Level 3.1 g/dL (3.5-5.1); Alkaline Phosphatase 63 U/L (38-126); Anion Gap 5 mmol/L (4-12); Aspartate Amino Transferase 30 U/L (17-59); Bilirubin,Total 0.2 mg/dL (0.2-1.3); Blood Urea Nitrogen 11 mg/dL (9-20); Calcium 8.6 mg/dL (8.4-10.2); Carbon Dioxide 29 mmol/L (22-30); Chloride 105 mmol/L (98-107); Estimated CRCL calculation 63 ml/min; Estimated Glomerular Filt Rate > 60; Glucose 100 mg/dL (65-110); Magnesium 2.0 mg/dL (1.6-2.3); Potassium 3.6 mmol/L (3.4-5.0); Sodium 139 mmol/L (137-145); Total Protein 5.6 g/dL (6.3-8.2)
[2025-06-08 05:48] LABS: Anisocytosis 1+; Band Neutrophils Percent 3 % (0-6); Basophils Absolute Manual 0.08 K/mm3 (0.0-0.1); Basophils Percent Manual 1 % (0-1); Eosinophils Absolute Manual 0.08 K/mm3 (0.02-0.50); Eosinophils Percent Manual 1 % (0-4); Hypochromasia 1+; Lymphocytes Absolute Manual 1.32 K/mm3 (1.1-4.5); Lymphocytes Percent Manual 15.0 % (18-44); Monocytes Absolute Manual 0.44 K/mm3 (0.1-0.90); Monocytes Percent Manual 5 % (3-9); Neutrophils Absolute Manual 6.86 K/mm3 (1.3-6.7); Neutrophils Percent Manual 75 % (46-73); Schistocytes None Seen; Smudge Cells PRESENT; Total Cells Counted 100
[2025-06-08] MEDS: THIAMINE HCL 100 MG TABLET PO (08:01)
[2025-06-08] MEDS: FOLIC ACID 1 MG TABLET PO (08:01)
[2025-06-08] MEDS: PANTOPRAZOLE 40 MG TABLET PO (08:01)
--- NOTE | 2025-06-08 11:38 | P.PNIM_ITS ---
Progress Note: A&P Assessment and Plan (1) Altered mental status: Qualifiers: Altered mental status type: unspecified Qualified Code(s): R41.82 - Altered mental status, unspecified Code(s): R41.82 - Altered mental status, unspecified Status: Acute Assessment and Plan: Patient brought to emergency room because of confusion. Patient was aggressive in the emergency room the did require Ativan IV and Haldol IV. Baseline mental status unclear but patient was seen in September in the ED and only alert and oriented x2. He was however intoxicated at that time. CT the brain showed no acute intracranial process but did show mild-moderate diffuse volume loss. Chest x-ray was clear. EKG showed normal sinus rhythm with sinus arrhythmia and left BBB. 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 Mild anemia noted. B12 and folate normal. Ammonia <9. TSH normal. RPR non- reactive, VitD level normal. Consider Korsakoff with his confabulation and memory impairment. Consider Alzheimer Neuro consulted and appreciate their input. Brain MRI ordered but cancelled Was having withdrawal symptoms so CIWA protocol started. Add Seroquel at night. resolved. (2) Elevated troponin: Code(s): R79.89 - Other specified abnormal findings of blood chemistry Status: Acute Assessment and Plan: Troponin elevated at 0.039 with next value normal. EKG showing no acute ST-T wave changes. 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 CXR is clear. Echo showing EF 60-65%, Grade I diastolic dysfunction and mild MR. Elevated Trop could be related to episodes of tachycardia. (3) Elevated BUN: Code(s): R79.9 - Abnormal finding of blood chemistry, unspecified Status: Acute Assessment and Plan: resolved S/p IVF Cr 0.71 and BUN 24. (4) Alcohol use disorder: Code(s): F10.90 - Alcohol use, unspecified, uncomplicated Status: Acute Assessment and Plan: Patient has alcohol use disorder per chart. Thiamine, Folate and MVI started. Have Ativan available for evidence of withdrawal. Librium added but now held. Continue CIWA. Change to oral route for meds. (5) Anemia: Code(s): D64.9 - Anemia, unspecified Status: Acute Assessment and Plan: Hb 9.3 s/p 1 unit pRBC . B12, folate normal. Iron studies show iron deficiency with ISat 11%. Started IV iron 1000/1000 R/o GI bleed GI following, for upper and lower scope today Continue PPI. Follow Plan Severe Protein Calorie Malnutrition - related to inadequate protein-energy intake with increased protein-energy needs in setting of chronic disease as evidenced by minimal oral intake for > 1-2 months; severe subcutaneous fat loss (orbital fat pads) and severe muscle wasting (temporalis, clavicle). Supplements added. Right inguinal hernia Patient noted hernia is chronic CT AP showed bilateral hernia Gen surgery recommends conservative care Disp - [facility] Code status -full DVT prophylaxis - SCDs, AC on hold pending GI bleed eval Subjective Date/time seen: 06/08/25 11:38 Interval history: Comfortable at bedside for EGD and colonoscopy today Review of Systems Review of Systems: All systems reviewed & are unremarkable except as noted in HPI and below (Subjective/HPI) ROS unobtainable: Yes unobtainable due to mental status Exam Narrative: AF 97.3 111/50 76 18 100% ra Gen - NARD sitting up in chair Chest - CTA bilaterally CV - RRR S1/S2 Abd - Soft, NT/ND, Positive BS Ext - No pedal edema Neuro - alert, oriented to location and [place] name. Psych - calm and cooperative. becomes mildly irate when talking about money being stolen from him Skin - Warm and dry : Rightsided inguinal hernia Const: General: comfortable Other: Obtunded, protecting airway, unkempt HENMT: Mouth: Yes dry mucous membranes Eyes: Pupils: Equal, round and reactive pupils present Neck: Neck: supple Resp: Effort & Inspection: normal respiratory effort Auscultation: clear to auscultation bilaterally Cardio: Rate: regular rate Rhythm: regular rhythm GI: Inspection: non-distended : General: Yes bladder normal to palpation Neuro: Cranial nerves: Yes Equal, round and reactive pupils present Other: Unable to perform complete examination Extrem: General: no edema Objective Data Vital Signs Vital Signs: Vital Signs - 24 hr 06/07/25 11:40 06/07/25 12:00 06/07/25 12:40 Temperature 98.2 F 98.2 F Pulse Rate 84 74 Pulse Rate [Monitor] 98 Respiratory Rate 14 15 Blood Pressure 98/47 L 100/48 L 101/51 L Pulse Oximetry 100 100 Oxygen Delivery 06/07/25 12:40 06/07/25 13:15 06/07/25 16:00 Temperature 98.2 F 98.8 F 97.7 F Pulse Rate 74 70 68 Pulse Rate [Monitor] Respiratory Rate 15 14 16 Blood Pressure 101/51 L 100/48 L 130/59 L Pulse Oximetry 100 100 99 Oxygen Delivery 06/07/25 16:00 06/07/25 20:00 06/07/25 20:00 Temperature Pulse Rate 68 Pulse Rate [Monitor] 98 98 Respiratory Rate 16 Blood Pressure 130/59 L 130/59 L Pulse Oximetry 99 Oxygen Delivery Room Air 06/07/25 20:00 06/07/25 23:39 06/08/25 00:00 Temperature 98.0 F 98.4 F Pulse Rate 61 63 Pulse Rate [Monitor] 98 Respiratory Rate 18 17 Blood Pressure 112/48 L 116/49 L 116/49 L Pulse Oximetry 100 100 Oxygen Delivery 06/08/25 03:38 06/08/25 04:00 06/08/25 08:00 Temperature 98.1 F 98.1 F Pulse Rate 63 68 Pulse Rate [Monitor] 98 Respiratory Rate 17 18 Blood Pressure 121/60 121/60 123/58 L Pulse Oximetry 100 100 Oxygen Delivery 06/08/25 08:00 06/08/25 08:30 Temperature Pulse Rate Pulse Rate [Monitor] Respiratory Rate Blood Pressure Pulse Oximetry 100 Oxygen Delivery Room Air Room Air Intake/Output Intake/Output: Intake & Output 06/05/25 06/06/25 06/07/25 06/08/25 23:59 23:59 23:59 23:59 Intake Total 2630 620 2385 Output Total 850 Balance 2499 463 5278 Meds/Results Medications: Active Medications Generic Name Dose Route Start Last Admin Trade Name Freq PRN Reason Stop Dose Admin Acetaminophen 650 mg 06/05/25 22:49 06/06/25 23:59 Acetaminophen 325 Mg Tablet PO 650 mg Q4H PRN Administration Mild Pain (1-3) or Fever Enoxaparin Sodium 40 mg 06/07/25 09:00 06/08/25 07:54 Enoxaparin 40 Mg/0.4 Ml Syringe SUB-Q Not Given DAILY CHANDNI Folic Acid 1 mg 06/06/25 09:00 06/08/25 08:01 Folic Acid 1 Mg Tablet PO 1 mg DAILY CHANDNI Administration Lorazepam 2 mg 06/03/25 18:20 06/04/25 23:28 Lorazepam Inj (*Crx) 2 Mg/Ml Vial IV PUSH 2 mg Q2HR PRN Administration Alcohol Withdrawal Ondansetron HCl 4 mg 06/06/25 11:27 06/06/25 11:47 Ondansetron Hcl Odt 4 Mg Tablet PO 4 mg Q6H PRN Administration Nausea And Vomiting Pantoprazole Sodium 40 mg 06/06/25 09:00 06/08/25 08:01 Pantoprazole 40 Mg Tablet PO 40 mg QAM CHANDNI Administration Quetiapine Fumarate 12.5 mg 06/05/25 21:00 06/07/25 20:01 Quetiapine Fumarate 12.5 Mg Tablet PO 12.5 mg HS CHANDNI Administration Thiamine HCl 100 mg 06/06/25 09:00 06/08/25 08:01 Thiamine Hcl 100 Mg Tablet PO 100 mg QAM CHANDNI Administration Radiology Results: ITS Impressions Chest X-Ray 06/01/25 22:13 IMPRESSION: No acute cardiopulmonary process. Head CT 06/02/25 08:09 IMPRESSION: 1. No acute intracranial process. 2. Age-related changes including mild to moderate diffuse volume loss and mild scattered white matter hypoattenuation consistent with chronic small vessel ischemic disease. Abdomen/Pelvis CT 06/06/25 13:48 IMPRESSION: 1. Large bilateral inguinal hernias containing nonobstructed bowel. 2: Diffuse bladder wall thickening, suspicious for cystitis. Clinically correlate. 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 Labs Labs: Laboratory Results - last 24 hr 06/07/25 06/07/25 06/07/25 06:11 11:51 12:39 WBC RBC Hgb Hct MCV MCH MCHC RDW Plt Count MPV Immature Gran % (Auto) Neut % (Auto) Lymph % (Auto) [place] % (Auto) Eos % (Auto) Baso % (Auto) Lymph # (Auto) [place] # (Auto) Eos # (Auto) Baso # (Auto) Abs Immat Gran (auto) Absolute Neuts (auto) Absolute Nucleated RBC Total Counted Neutrophils % (Manual) Band Neutrophils % Lymphocytes % (Manual) Monocytes % (Manual) Eosinophils % (Manual) Basophils % (Manual) Nucleated RBC % Abs Neuts (Manual) Abs Lymphs (Manual) Abs Monocytes (Manual) Absolute Eos (Manual) Abs Basophils (Manual) Nucleated RBCs Smudge Cells Platelet Estimate Large Platelets Hypochromasia Anisocytosis Schistocytes Sodium Potassium Chloride Carbon Dioxide Anion Gap BUN Creatinine Estim Creat Clear Calc Estimated GFR Glucose POC Capillary Glucose 127 H 138 H Calcium Magnesium Total Bilirubin AST ALT Alkaline Phosphatase Total Protein Albumin Crossmatch See Detail 06/07/25 06/07/25 06/07/25 14:22 16:55 23:36 WBC RBC Hgb 9.1 L D Hct 27.9 L MCV MCH MCHC RDW Plt Count MPV Immature Gran % (Auto) Neut % (Auto) Lymph % (Auto) [place] % (Auto) Eos % (Auto) Baso % (Auto) Lymph # (Auto) [place] # (Auto) Eos # (Auto) Baso # (Auto) Abs Immat Gran (auto) Absolute Neuts (auto) Absolute Nucleated RBC Total Counted Neutrophils % (Manual) Band Neutrophils % Lymphocytes % (Manual) Monocytes % (Manual) Eosinophils % (Manual) Basophils % (Manual) Nucleated RBC % Abs Neuts (Manual) Abs Lymphs (Manual) Abs Monocytes (Manual) Absolute Eos (Manual) Abs Basophils (Manual) Nucleated RBCs Smudge Cells Platelet Estimate Large Platelets Hypochromasia Anisocytosis Schistocytes Sodium Potassium Chloride Carbon Dioxide Anion Gap BUN Creatinine Estim Creat Clear Calc Estimated GFR Glucose POC Capillary Glucose 103 121 H Calcium Magnesium Total Bilirubin AST ALT Alkaline Phosphatase Total Protein Albumin Crossmatch 06/08/25 06/08/25 04:50 05:35 WBC 8.8 RBC 3.09 L Hgb 9.3 L Hct 28.8 L MCV 93.2 MCH 30.1 MCHC 32.3 RDW 15.3 H Plt Count 219 MPV 10.4 Immature Gran % (Auto) Not Reportable Neut % (Auto) Not Reportable Lymph % (Auto) Not Reportable [place] % (Auto) Not Reportable Eos % (Auto) Not Reportable Baso % (Auto) Not Reportable Lymph # (Auto) Not Reportable [place] # (Auto) Not Reportable Eos # (Auto) Not Reportable Baso # (Auto) Not Reportable Abs Immat Gran (auto) Not Reportable Absolute Neuts (auto) Not Reportable Absolute Nucleated RBC Not Reportable Total Counted 100 Neutrophils % (Manual) 75 H Band Neutrophils % 3 Lymphocytes % (Manual) 15.0 L Monocytes % (Manual) 5 Eosinophils % (Manual) 1 Basophils % (Manual) 1 Nucleated RBC % Not Reportable Abs Neuts (Manual) 6.86 H Abs Lymphs (Manual) 1.32 Abs Monocytes (Manual) 0.44 Absolute Eos (Manual) 0.08 Abs Basophils (Manual) 0.08 Nucleated RBCs 1 Smudge Cells Present Platelet Estimate Adequate Large Platelets Present Hypochromasia 1+ Anisocytosis 1+ Schistocytes None seen Sodium 139 Potassium 3.6 Chloride 105 Carbon Dioxide 29 Anion Gap 5 BUN 11 D Creatinine 0.66 L Estim Creat Clear Calc 63 Estimated GFR > 60 Glucose 100 POC Capillary Glucose 106 H Calcium 8.6 Magnesium 2.0 Total Bilirubin 0.2 AST 30 ALT 17 Alkaline Phosphatase 63 Total Protein 5.6 L Albumin 3.1 L Crossmatch
[2025-06-08] MEDS: ACETAMINOPHEN 325 MG TABLET 650 MG PO (11:57)
--- NOTE | 2025-06-08 13:21 | P.PNAN_ITS ---
Anes - Initial Pre Proc Eval Procedure: Operation Date: 06/08/25 14:45 Proposed Procedures p EGD & Diagnostic Colonoscopy - Jerome Sands MD Date/Time: 06/08/25 13:21 Surgeon: Wicho Pre Op Diagnosis: AMS Patient Data Age: 79 Gender: M Height: 1.85 m Weight: 56 kg Last Vital Signs Temp 36.7 C 06/08/25 08:00 Pulse 68 06/08/25 08:00 Resp 18 06/08/25 08:00 BP 123/58 L 06/08/25 08:00 Pulse Ox 100 06/08/25 08:30 O2 Del Method Room Air 06/08/25 08:30 Allergies Allergy/AdvReac Type Severity Reaction Status Date / Time No Known Allergies Allergy Verified 06/08/25 13:20 Home Medications ?Medication ?Instructions ?Recorded ?Confirmed ?Type Unable to Obtain Home Medications 06/03/25 06/03/25 History Laboratory Tests 06/07/25 06/07/25 06/07/25 06:11 14:22 16:55 WBC RBC Hgb 9.1 L D g/dL (14.0-18.0) Hct 27.9 L % (42.0-52.0) MCV MCH MCHC RDW Plt Count MPV Immature Gran % (Auto) Neut % (Auto) Lymph % (Auto) [place] % (Auto) Eos % (Auto) Baso % (Auto) Lymph # (Auto) [place] # (Auto) Eos # (Auto) Baso # (Auto) Abs Immat Gran (auto) Absolute Neuts (auto) Absolute Nucleated RBC Total Counted Neutrophils % (Manual) Band Neutrophils % Lymphocytes % (Manual) Monocytes % (Manual) Eosinophils % (Manual) Basophils % (Manual) Nucleated RBC % Abs Neuts (Manual) Abs Lymphs (Manual) Abs Monocytes (Manual) Absolute Eos (Manual) Abs Basophils (Manual) Nucleated RBCs Smudge Cells Platelet Estimate Large Platelets Hypochromasia Anisocytosis Schistocytes Sodium Potassium Chloride Carbon Dioxide Anion Gap BUN Creatinine Estim Creat Clear Calc Estimated GFR Glucose POC Capillary Glucose 103 mg/dl (65-105) Calcium Magnesium Total Bilirubin AST ALT Alkaline Phosphatase Total Protein Albumin Crossmatch See Detail 06/07/25 06/08/25 06/08/25 23:36 04:50 05:35 WBC 8.8 K/mm3 (4.5-10.0) RBC 3.09 L M/mm3 (4.6-6.20) Hgb 9.3 L g/dL (14.0-18.0) Hct 28.8 L % (42.0-52.0) MCV 93.2 fl (80-100) MCH 30.1 pg (26-34) MCHC 32.3 g/dl (32-36) RDW 15.3 H % (11.5-14.5) Plt Count 219 k/mm3 (150-375) MPV 10.4 fl (7.4-10.4) Immature Gran % (Auto) Not Reportable Neut % (Auto) Not Reportable Lymph % (Auto) Not Reportable [place] % (Auto) Not Reportable Eos % (Auto) Not Reportable Baso % (Auto) Not Reportable Lymph # (Auto) Not Reportable [place] # (Auto) Not Reportable Eos # (Auto) Not Reportable Baso # (Auto) Not Reportable Abs Immat Gran (auto) Not Reportable Absolute Neuts (auto) Not Reportable Absolute Nucleated RBC Not Reportable Total Counted 100 Neutrophils % (Manual) 75 H % (46-73) Band Neutrophils % 3 % (0-6) Lymphocytes % (Manual) 15.0 L % (18-44) Monocytes % (Manual) 5 % (3-9) Eosinophils % (Manual) 1 % (0-4) Basophils % (Manual) 1 % (0-1) Nucleated RBC % Not Reportable Abs Neuts (Manual) 6.86 H K/mm3 (1.3-6.7) Abs Lymphs (Manual) 1.32 K/mm3 (1.1-4.5) Abs Monocytes (Manual) 0.44 K/mm3 (0.1-0.90) Absolute Eos (Manual) 0.08 K/mm3 (0.02-0.50) Abs Basophils (Manual) 0.08 K/mm3 (0.0-0.1) Nucleated RBCs 1 % Smudge Cells Present Platelet Estimate Adequate (Adequate) Large Platelets Present Hypochromasia 1+ Anisocytosis 1+ Schistocytes None seen Sodium 139 mmol/L (137-145) Potassium 3.6 mmol/L (3.4-5.0) Chloride 105 mmol/L (98-107) Carbon Dioxide 29 mmol/L (22-30) Anion Gap 5 mmol/L (4-12) BUN 11 D mg/dL (9-20) Creatinine 0.66 L mg/dL (0.7-1.3) Estim Creat Clear Calc 63 ml/min Estimated GFR > 60 (59 - ) Glucose 100 mg/dL (65-110) POC Capillary Glucose 121 H mg/dl 106 H mg/dl (65-105) (65-105) Calcium 8.6 mg/dL (8.4-10.2) Magnesium 2.0 mg/dL (1.6-2.3) Total Bilirubin 0.2 mg/dL (0.2-1.3) AST 30 U/L (17-59) ALT 17 U/L (6-50) Alkaline Phosphatase 63 U/L (38-126) Total Protein 5.6 L g/dL (6.3-8.2) Albumin 3.1 L g/dL (3.5-5.1) Crossmatch 06/08/25 12:12 WBC RBC Hgb Hct MCV MCH MCHC RDW Plt Count MPV Immature Gran % (Auto) Neut % (Auto) Lymph % (Auto) [place] % (Auto) Eos % (Auto) Baso % (Auto) Lymph # (Auto) [place] # (Auto) Eos # (Auto) Baso # (Auto) Abs Immat Gran (auto) Absolute Neuts (auto) Absolute Nucleated RBC Total Counted Neutrophils % (Manual) Band Neutrophils % Lymphocytes % (Manual) Monocytes % (Manual) Eosinophils % (Manual) Basophils % (Manual) Nucleated RBC % Abs Neuts (Manual) Abs Lymphs (Manual) Abs Monocytes (Manual) Absolute Eos (Manual) Abs Basophils (Manual) Nucleated RBCs Smudge Cells Platelet Estimate Large Platelets Hypochromasia Anisocytosis Schistocytes Sodium Potassium Chloride Carbon Dioxide Anion Gap BUN Creatinine Estim Creat Clear Calc Estimated GFR Glucose POC Capillary Glucose 89 mg/dl (65-105) Calcium Magnesium Total Bilirubin AST ALT Alkaline Phosphatase Total Protein Albumin Crossmatch Patient hx anesthesia problems: none Family hx anesthesia problems: none Results Review: All pre-operative results and documents have been reviewed as part of the pre- operative evaluation. [facility] Past Medical History Medical History (Updated 06/07/25 @ 10:49 by Emilee Denise APRN) Alcohol use disorder Surgical History Surgical History No significant past surgical history Social History Social History Smoking status: Unknown if ever smoked Alcohol intake: current Substance use: unknown Spiritual care concerns: No Anes - Eval Final PreProcedure Day of Procedure 06/08/25 13:21 Patient weight: cachectic Heart: regular rate and rhythm Lungs: clear to auscultation and normal air movement Airway: Mallampati scale class II Neurological: alert and oriented Last oral intake: >/= 8 hours ASA classification: IV Emergent: no Anesthetic plan: proceed Anesthesia type and monitoring: general GIVS and standard monitoring Results Review: All pre-operative results and documents have been reviewed as part of the pre- operative evaluation. Informed Consent: The patient's anesthetic plan and its attendant risks and benefits were discussed with the patient/family/POA. Questions were solicited and answers provided to the satisfaction of the patient/family/POA.
[2025-06-08] MEDS: LACTATED RINGERS 1,000 ML 150 ML IV CONT (13:33)
[2025-06-08] MEDS: SIMETHICONE ORAL SUSPENSION 20 MG/0.3 ML 30 ML BOTTLE 1.8 ML PO (13:34)
--- NOTE | 2025-06-08 14:49 | SUR.OPER ---
COLONOSCOPY PERFORMED WITH SCOPE 217, PER DOCTOR REQUEST SWITCHED TO A GASTROSCOPE 234 TO END COLONOSCOPY.
--- NOTE | 2025-06-08 14:56 | S_PTH ---
PATIENT: Caio Teran LOC: [id number] U#:[id number] AGE/SX: 79/M ROOM: 256 RE06/03/[address]: Chester Mohr MD : 1945 BED: 01 DIS: 06/08/2025 SPEC #: [id number] RECD: 06/11/25 07:33 STATUS: FAUSTINA REQ #: [id number] SHREYA: 06/08/25 14:[address]: Jerome Sands DEPT: [facility] Surgical RECD BY: Sabrina Vasquez ENTERED: 06/11/25 07:34 SP TYPE: Surgical OTHR DR: MD Shelley Presley MD Sajjan K. Nemani, MD Sanjay K. Nigam, MD SUPERVISOR PASTE MIXING PHYSICIAN Tissues: A - Gastric Biopsy B - Gastric Biopsy C - Esophageal Biopsy Procedures: [place] Stain Hematoxylin and Eosin Stain Gross and Microscopic Level 4
--- NOTE | 2025-06-08 14:58 | SUR.OPER ---
EGD START 1419, END 1424 SIGMOIDOSCOPY START 1432, END 1453
--- NOTE | 2025-06-08 15:05 | WPDGIPROGNO ---
Progress Note: A&P Assessment and Plan (1) Inguinal hernia: Code(s): K40.90 - Unilateral inguinal hernia, without obstruction or gangrene, not specified as recurrent Status: Acute Assessment and Plan: Please see attempted colonoscopy report. Large inguinal hernias precluded passage of colonoscope or even a gastroscope. we will not be able to do a colonoscopy unless this problem is solved. Suggest reconsulting surgery to reconsider surgical repair. Iron deficiency anemia needs to me addressed with colonoscopy. In time meantime I will order a barium enema to better define the anatomy. Subjective Date/time seen: 06/08/25 15:05 Objective Data Vital Signs Vital Signs: Vital Signs - 24 hr 06/07/25 16:00 06/07/25 16:00 06/07/25 20:00 Temperature 97.7 F Pulse Rate 68 Pulse Rate [Monitor] 98 98 Respiratory Rate 16 Blood Pressure 130/59 L 130/59 L 130/59 L Pulse Oximetry 99 Oxygen Delivery 06/07/25 20:00 06/07/25 20:00 06/07/25 23:39 Temperature 98.0 F 98.4 F Pulse Rate 68 61 63 Pulse Rate [Monitor] Respiratory Rate 16 18 17 Blood Pressure 112/48 L 116/49 L Pulse Oximetry 99 100 100 Oxygen Delivery Room Air 06/08/25 00:00 06/08/25 03:38 06/08/25 04:00 Temperature 98.1 F Pulse Rate 63 Pulse Rate [Monitor] 98 98 Respiratory Rate 17 Blood Pressure 116/49 L 121/60 121/60 Pulse Oximetry 100 Oxygen Delivery 06/08/25 08:00 06/08/25 08:00 06/08/25 08:30 Temperature 98.1 F Pulse Rate 68 Pulse Rate [Monitor] Respiratory Rate 18 Blood Pressure 123/58 L Pulse Oximetry 100 100 Oxygen Delivery Room Air Room Air 06/08/25 13:06 06/08/25 14:56 Temperature 97.9 F Pulse Rate 60 66 Pulse Rate [Monitor] Respiratory Rate 16 24 H Blood Pressure 103/49 L 118/66 Pulse Oximetry 100 99 Oxygen Delivery Room Air Room Air Intake/Output Intake/Output: Intake & Output 06/05/25 06/06/25 06/07/25 06/08/25 23:59 23:59 23:59 23:59 Intake Total 2630 620 2385 0 Output Total 850 Balance 4865 052 6475 0 Meds/Results Medications: Active Medications Generic Name Dose Route Start Last Admin Trade Name Freq PRN Reason Stop Dose Admin Acetaminophen 650 mg 06/05/25 22:49 06/08/25 11:57 Acetaminophen 325 Mg Tablet PO 650 mg Q4H PRN Administration Mild Pain (1-3) or Fever Enoxaparin Sodium 40 mg 06/07/25 09:00 06/08/25 07:54 Enoxaparin 40 Mg/0.4 Ml Syringe SUB-Q Not Given DAILY CHANDNI Folic Acid 1 mg 06/06/25 09:00 06/08/25 08:01 Folic Acid 1 Mg Tablet PO 1 mg DAILY CHANDNI Administration Lactated Ringer's 1,000 mls @ 150 mls/hr 06/08/25 13:25 06/08/25 14:51 Lr - Lactated Ringers Iv IV CONT 150 mls/hr .[id number] CHANDNI Infusion Lorazepam 2 mg 06/03/25 18:20 06/04/25 23:28 Lorazepam Inj (*Crx) 2 Mg/Ml Vial IV PUSH 2 mg Q2HR PRN Administration Alcohol Withdrawal Ondansetron HCl 4 mg 06/06/25 11:27 06/06/25 11:47 Ondansetron Hcl Odt 4 Mg Tablet PO 4 mg Q6H PRN Administration Nausea And Vomiting Pantoprazole Sodium 40 mg 06/06/25 09:00 06/08/25 08:01 Pantoprazole 40 Mg Tablet PO 40 mg QAM CHANDNI Administration Quetiapine Fumarate 12.5 mg 06/05/25 21:00 06/07/25 20:01 Quetiapine Fumarate 12.5 Mg Tablet PO 12.5 mg HS CHANDNI Administration Thiamine HCl 100 mg 06/06/25 09:00 06/08/25 08:01 Thiamine Hcl 100 Mg Tablet PO 100 mg QAM CHANDNI Administration Radiology Results: ITS Impressions Chest X-Ray 06/01/25 22:13 IMPRESSION: No acute cardiopulmonary process. Head CT 06/02/25 08:09 IMPRESSION: 1. No acute intracranial process. 2. Age-related changes including mild to moderate diffuse volume loss and mild scattered white matter hypoattenuation consistent with chronic small vessel ischemic disease. Abdomen/Pelvis CT 06/06/25 13:48 IMPRESSION: 1. Large bilateral inguinal hernias containing nonobstructed bowel. 2: Diffuse bladder wall thickening, suspicious for cystitis. Clinically correlate. 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 Labs Labs: Laboratory Results - last 24 hr 06/07/25 06/07/25 06/08/25 16:55 23:36 04:50 WBC 8.8 RBC 3.09 L Hgb 9.3 L Hct 28.8 L MCV 93.2 MCH 30.1 MCHC 32.3 RDW 15.3 H Plt Count 219 MPV 10.4 Immature Gran % (Auto) Not Reportable Neut % (Auto) Not Reportable Lymph % (Auto) Not Reportable [place] % (Auto) Not Reportable Eos % (Auto) Not Reportable Baso % (Auto) Not Reportable Lymph # (Auto) Not Reportable [place] # (Auto) Not Reportable Eos # (Auto) Not Reportable Baso # (Auto) Not Reportable Abs Immat Gran (auto) Not Reportable Absolute Neuts (auto) Not Reportable Absolute Nucleated RBC Not Reportable Total Counted 100 Neutrophils % (Manual) 75 H Band Neutrophils % 3 Lymphocytes % (Manual) 15.0 L Monocytes % (Manual) 5 Eosinophils % (Manual) 1 Basophils % (Manual) 1 Nucleated RBC % Not Reportable Abs Neuts (Manual) 6.86 H Abs Lymphs (Manual) 1.32 Abs Monocytes (Manual) 0.44 Absolute Eos (Manual) 0.08 Abs Basophils (Manual) 0.08 Nucleated RBCs 1 Smudge Cells Present Platelet Estimate Adequate Large Platelets Present Hypochromasia 1+ Anisocytosis 1+ Schistocytes None seen Sodium 139 Potassium 3.6 Chloride 105 Carbon Dioxide 29 Anion Gap 5 BUN 11 D Creatinine 0.66 L Estim Creat Clear Calc 63 Estimated GFR > 60 Glucose 100 POC Capillary Glucose 103 121 H Calcium 8.6 Magnesium 2.0 Total Bilirubin 0.2 AST 30 ALT 17 Alkaline Phosphatase 63 Total Protein 5.6 L Albumin 3.1 L 06/08/25 06/08/25 05:35 12:12 WBC RBC Hgb Hct MCV MCH MCHC RDW Plt Count MPV Immature Gran % (Auto) Neut % (Auto) Lymph % (Auto) [place] % (Auto) Eos % (Auto) Baso % (Auto) Lymph # (Auto) [place] # (Auto) Eos # (Auto) Baso # (Auto) Abs Immat Gran (auto) Absolute Neuts (auto) Absolute Nucleated RBC Total Counted Neutrophils % (Manual) Band Neutrophils % Lymphocytes % (Manual) Monocytes % (Manual) Eosinophils % (Manual) Basophils % (Manual) Nucleated RBC % Abs Neuts (Manual) Abs Lymphs (Manual) Abs Monocytes (Manual) Absolute Eos (Manual) Abs Basophils (Manual) Nucleated RBCs Smudge Cells Platelet Estimate Large Platelets Hypochromasia Anisocytosis Schistocytes Sodium Potassium Chloride Carbon Dioxide Anion Gap BUN Creatinine Estim Creat Clear Calc Estimated GFR Glucose POC Capillary Glucose 106 H 89 Calcium Magnesium Total Bilirubin AST ALT Alkaline Phosphatase Total Protein Albumin
--- NOTE | 2025-06-08 15:47 | P.PSYCH_ITS ---
HPI Data of Consult Date/Time: 06/08/25 15:47 Requesting Physician: Aziaz Corley MD Primary Care Provider: SERVICES ADVISOR PHYSICIAN Consult Narrative Narrative: Caio Teran is a 79 year old male with a known psychiatric history of alcohol use disorder admitted on 06/02 for altered mental status. He was reportedly found wandering and confused and was brought into ED for further evaluation. It is noted that he reportedly is prescribed quetiapine, although compliance is unknown. He developed verbal aggression in the ED, which was managed with Haldol and lorazepam. He was noted to be in alcohol withdrawals, started on CIWA protocol with PRN lorazepam to manage withdrawals- last dose of lorazepam was given on 06/04 per DEC. His urine drug screen and alcohol level were negative on admission. Neurology has been consulted as well for input, EEG completed today. 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 [facility] Past Medical History Medical History (Updated 06/08/25 @ 15:05 by Jerome Sands MD) Alcohol use disorder Surgical History Surgical History No significant past surgical history Social History Social History Smoking status: Unknown if ever smoked Alcohol intake: current Substance use: unknown Spiritual care concerns: No Meds Home Medications and Allergies Home Medications ?Medication ?Instructions ?Recorded ?Confirmed ?Type folic acid 1 mg tablet 1 mg PO DAILY 30 days #30 tabs 06/08/25 Rx pantoprazole 40 mg tablet,delayed 40 mg PO QAM 30 days #30 tabs 06/08/25 Rx release quetiapine 25 mg tablet (Seroquel) 25 mg PO HS 7 days #7 tabs 06/08/25 Rx thiamine HCl (vitamin B1) 100 mg 100 mg PO QAM 30 days #30 tabs 06/08/25 Rx tablet (Vitamin B-1) Allergies Allergy/AdvReac Type Severity Reaction Status Date / Time No Known Allergies Allergy Verified 06/08/25 13:20 Vital Signs Vital Signs - 24 hr 06/07/25 16:00 06/07/25 16:00 06/07/25 20:00 Temperature 97.7 F Pulse Rate 68 Pulse Rate [Monitor] 98 98 Respiratory Rate 16 Blood Pressure 130/59 L 130/59 L 130/59 L Pulse Oximetry 99 Oxygen Delivery 06/07/25 20:00 06/07/25 20:00 06/07/25 23:39 Temperature 98.0 F 98.4 F Pulse Rate 68 61 63 Pulse Rate [Monitor] Respiratory Rate 16 18 17 Blood Pressure 112/48 L 116/49 L Pulse Oximetry 99 100 100 Oxygen Delivery Room Air 06/08/25 00:00 06/08/25 03:38 06/08/25 04:00 Temperature 98.1 F Pulse Rate 63 Pulse Rate [Monitor] 98 98 Respiratory Rate 17 Blood Pressure 116/49 L 121/60 121/60 Pulse Oximetry 100 Oxygen Delivery 06/08/25 08:00 06/08/25 08:00 06/08/25 08:30 Temperature 98.1 F Pulse Rate 68 Pulse Rate [Monitor] Respiratory Rate 18 Blood Pressure 123/58 L Pulse Oximetry 100 100 Oxygen Delivery Room Air Room Air 06/08/25 13:06 06/08/25 14:56 06/08/25 15:06 Temperature 97.9 F Pulse Rate 60 66 68 Pulse Rate [Monitor] Respiratory Rate 16 24 H 23 H Blood Pressure 103/49 L 118/66 123/62 Pulse Oximetry 100 99 99 Oxygen Delivery Room Air Room Air Room Air 06/08/25 15:16 Temperature Pulse Rate 73 Pulse Rate [Monitor] Respiratory Rate 22 H Blood Pressure 131/71 Pulse Oximetry 100 Oxygen Delivery Room Air Results Labs 06/08/25 04:50 06/08/25 04:50 Labs: Short CBC 06/08/25 Range/Units 04:50 WBC 8.8 (4.5-10.0) K/mm3 Hgb 9.3 L (14.0-18.0) g/dL Hct 28.8 L (42.0-52.0) % Plt Count 219 (150-375) k/mm3 BMP 06/08/25 04:50 Sodium 139 Potassium 3.6 Chloride 105 Carbon Dioxide 29 BUN 11 D Creatinine 0.66 L Glucose 100 Calcium 8.6 Liver Function 06/08/25 Range/Units 04:50 Total Bilirubin 0.2 (0.2-1.3) mg/dL AST 30 (17-59) U/L ALT 17 (6-50) U/L Alkaline Phosphatase 63 (38-126) U/L Albumin 3.1 L (3.5-5.1) g/dL
--- NOTE | 2025-06-08 16:18 | P.DS_ITS ---
DS: Admitting Diagnosis Discharge Date 06/08/25 Admitting Diagnosis Altered mental status DS: Summary Time Spent with Patient Time attestation: Total time spent providing and/or coordinating discharge services: DS: Data Data Completed and Pending Pending studies at discharge: Pending at discharge 06/08/25 14:56 Surgical [PTH] Routine Labs on day of discharge: Labs from last 24 hours 06/08/25 06/08/25 06/08/25 12:12 05:35 04:50 WBC 8.8 RBC 3.09 L Hgb 9.3 L Hct 28.8 L MCV 93.2 MCH 30.1 MCHC 32.3 RDW 15.3 H Plt Count 219 MPV 10.4 Immature Gran % (Auto) Not Reportable Neut % (Auto) Not Reportable Lymph % (Auto) Not Reportable [place] % (Auto) Not Reportable Eos % (Auto) Not Reportable Baso % (Auto) Not Reportable Lymph # (Auto) Not Reportable [place] # (Auto) Not Reportable Eos # (Auto) Not Reportable Baso # (Auto) Not Reportable Abs Immat Gran (auto) Not Reportable Absolute Neuts (auto) Not Reportable Absolute Nucleated RBC Not Reportable Total Counted 100 Neutrophils % (Manual) 75 H Band Neutrophils % 3 Lymphocytes % (Manual) 15.0 L Monocytes % (Manual) 5 Eosinophils % (Manual) 1 Basophils % (Manual) 1 Nucleated RBC % Not Reportable Abs Neuts (Manual) 6.86 H Abs Lymphs (Manual) 1.32 Abs Monocytes (Manual) 0.44 Absolute Eos (Manual) 0.08 Abs Basophils (Manual) 0.08 Nucleated RBCs 1 Smudge Cells Present Platelet Estimate Adequate Large Platelets Present Hypochromasia 1+ Anisocytosis 1+ Schistocytes None seen Sodium 139 Potassium 3.6 Chloride 105 Carbon Dioxide 29 Anion Gap 5 BUN 11 D Creatinine 0.66 L Estim Creat Clear Calc 63 Estimated GFR > 60 Glucose 100 POC Capillary Glucose 89 106 H Calcium 8.6 Magnesium 2.0 Total Bilirubin 0.2 AST 30 ALT 17 Alkaline Phosphatase 63 Total Protein 5.6 L Albumin 3.1 L 06/07/25 06/07/25 23:36 16:55 WBC RBC Hgb Hct MCV MCH MCHC RDW Plt Count MPV Immature Gran % (Auto) Neut % (Auto) Lymph % (Auto) [place] % (Auto) Eos % (Auto) Baso % (Auto) Lymph # (Auto) [place] # (Auto) Eos # (Auto) Baso # (Auto) Abs Immat Gran (auto) Absolute Neuts (auto) Absolute Nucleated RBC Total Counted Neutrophils % (Manual) Band Neutrophils % Lymphocytes % (Manual) Monocytes % (Manual) Eosinophils % (Manual) Basophils % (Manual) Nucleated RBC % Abs Neuts (Manual) Abs Lymphs (Manual) Abs Monocytes (Manual) Absolute Eos (Manual) Abs Basophils (Manual) Nucleated RBCs Smudge Cells Platelet Estimate Large Platelets Hypochromasia Anisocytosis Schistocytes Sodium Potassium Chloride Carbon Dioxide Anion Gap BUN Creatinine Estim Creat Clear Calc Estimated GFR Glucose POC Capillary Glucose 121 H 103 Calcium Magnesium Total Bilirubin AST ALT Alkaline Phosphatase Total Protein Albumin Discharge Plan Discharge Attending physician on discharge: Chester Mohr Consulting providers: Dayna Llamas; Shelley Gonzalez; Jerome Sands; John Bach Discharging Clinician: Chester Mohr Anticipated Discharge Date/Time: 06/08/25 14:27 Patient Disposition: Other Activity: as tolerated Diet: as tolerated and regular Patient Instructions: Antibiotic Form Patient Language: Belarusian Stand Alone Forms: General Discharge Information Follow-up/Referrals: PHYSICIAN,RADIO STATION OPERATOR [Primary Care Provider] - (F/u with PCP in 3-5 days ) Discharge Medications: New thiamine HCl (vitamin B1) [Vitamin B-1] 100 mg Tablet 100 mg PO QAM 30 Days Qty: 30 0RF quetiapine [Seroquel] 25 mg tablet 25 mg PO HS 7 Days Qty: 7 0RF pantoprazole 40 mg Tablet,Delayed Release (Dr/Ec) 40 mg PO QAM 30 Days Qty: 30 0RF folic acid 1 mg Tablet 1 mg PO DAILY 30 Days Qty: 30 0RF Date of admission: 06/03/25 13:39 Primary Care Provider: PHYSICIAN,RADIO STATION OPERATOR Admitting Provider: Aziza Corley Attending physician on admission: Aziza Corley Condition: Serious
--- NOTE | 2025-06-08 16:33 | P.TS_ITS ---
Transfer Discharge Sum: Prov Provider Date of admission: 06/03/25 13:39 Primary care physician: [facility]ICIAN Admitting clinician: Aizza Corley MD Consults: 06/02/25 15:35 Consult to Physician Routine Comment: Consulting Provider: Dayna Llamas scallop dredger/MD group to consult: neuro Reason for consultation: AMS Has provider been notified: Yes 06/06/25 Consult to Physician Routine Comment: SPOKE TO OFFICE @ 08:07AM (-US) Consulting Provider: Shelley Gonzalez scallop dredger/MD group to consult: Carlos Reason for consultation: abdominal hernia Has provider been notified: Yes 06/07/25 Consult to Physician Routine Comment: LVM FOR Dr Sands @ 08:13am (-US) Consulting Provider: Jerome Sands scallop dredger/MD group to consult: GI Reason for consultation: Severe anemia, R/o GI bleed Has provider been notified: Yes 06/08/25 Consult to Physician Routine Comment: Consulting Provider: John Bach scallop dredger/MD group to consult: Voicemail left 06/08/25 @1045 Reason for consultation: Altered Mental Status, Confabulation Has provider been notified: Yes DS: Admitting Diagnosis Discharge Date 06/08/25 Admitting Diagnosis Altered mental status DS: Discharge Diagnosis Discharge Diagnosis (1) Alcohol use disorder: Code(s): F10.90 - Alcohol use, unspecified, uncomplicated Status: Acute (2) ROSA M (iron deficiency anemia): Qualifiers: Iron deficiency anemia type: unspecified iron deficiency Qualified Code(s): D50.9 - Iron deficiency anemia, unspecified Code(s): D50.9 - Iron deficiency anemia, unspecified Status: Acute (3) Bilateral inguinal hernia: Code(s): K40.20 - Bilateral inguinal hernia, without obstruction or gangrene, not specified as recurrent Status: Acute Transfer Discharge Sum: Med Medications Active and Home Medications: Home Medications folic acid 1 mg tablet 1 mg PO DAILY 30 days #30 tabs 06/08/25 [Rx] pantoprazole 40 mg tablet,delayed release 40 mg PO QAM 30 days #30 tabs 06/08/25 [Rx] quetiapine 25 mg tablet (Seroquel) 25 mg PO HS 7 days #7 tabs 06/08/25 [Rx] thiamine HCl (vitamin B1) 100 mg tablet (Vitamin B-1) 100 mg PO QAM 30 days #30 tabs 06/08/25 [Rx] Active Medications Acetaminophen (Acetaminophen 325 Mg Tablet) 650 mg PO Q4H PRN PRN Reason: Mild Pain (1-3) or Fever Last Admin: 06/08/25 11:57 Dose: 650 mg Enoxaparin Sodium (Enoxaparin 40 Mg/0.4 Ml Syringe) 40 mg SUB-Q DAILY [facility] Last Admin: 06/08/25 07:54 Dose: Not Given Folic Acid (Folic Acid 1 Mg Tablet) 1 mg PO DAILY [facility] Last Admin: 06/08/25 08:01 Dose: 1 mg Lorazepam (Lorazepam Inj (*Crx) 2 Mg/Ml Vial) 2 mg IV PUSH Q2HR PRN PRN Reason: Alcohol Withdrawal Last Admin: 06/04/25 23:28 Dose: 2 mg Ondansetron HCl (Ondansetron Hcl Odt 4 Mg Tablet) 4 mg PO Q6H PRN PRN Reason: Nausea And Vomiting Last Admin: 06/06/25 11:47 Dose: 4 mg Pantoprazole Sodium (Pantoprazole 40 Mg Tablet) 40 mg PO QAM [facility] Last Admin: 06/08/25 08:01 Dose: 40 mg Quetiapine Fumarate (Quetiapine Fumarate 12.5 Mg Tablet) 12.5 mg PO [facility] Last Admin: 06/07/25 20:01 Dose: 12.5 mg Thiamine HCl (Thiamine Hcl 100 Mg Tablet) 100 mg PO QAM [facility] Last Admin: 06/08/25 08:01 Dose: 100 mg Transfer Discharge Sum: Hosp Hospital Course Hospital course: On arrival, the patient was confused, confabulating, and at times verbally aggressive, requiring lorazepam and haloperidol for agitation. Baseline mental status was unclear, but [facility]. He was started on thiamine, folate, and multivitamins for alcohol use disorder and withdrawal precautions (CIWA protocol). Laboratory evaluation revealed iron deficiency anemia (Hgb ze 6.1), mild hyponatremia, and hypokalemia. He received IV iron, folic acid, and transfusions as needed. He also reported chronic constipation, dysphagia, nausea, vomiting, reflux, and unintentional weight loss. He endorsed intermittent melena but no current GI bleeding. Physical exam and imaging revealed large, bilateral, reducible inguinal hernias (right greater than left), which precluded successful colonoscopy and even gastroscope passage. No evidence of incarceration or strangulation was found. Conservative management with scrotal support was recommended, and elective surgical repair was deferred to the [place]. Neurology was consulted for persistent altered mental status. EEG showed mild diffuse background slowing and nonspecific left temporal sharp transients, suggestive of generalized encephalopathy. CT brain showed age-related volume loss, no acute findings. No clear etiology for encephalopathy was identified; possible contributions include alcohol use, malnutrition, and chronic disease. The patient?s mental status improved during admission. He was able to provide some history, including chronic testicular pain and constipation. He remained hemodynamically stable, with improved laboratory values after supportive care. Assessment and Plan: Bilateral Inguinal Hernia (K40.20): * Large, reducible, not incarcerated or strangulated. * Conservative management with scrotal support. * Elective surgical repair to be considered at the [facility], highhly recommended by GI * Hernias precluded colonoscopy; barium enema ordered for further evaluation. however patient transferred to the [facility] where he will continue evaluation. GI strongly recommends repair so colonoscopy can be completed. * Iron Deficiency Anemia (D50.9): * Hgb ze 6.1, transufsed 1 unit pRBC and 1000mg IV iron . * IV iron and folic acid administered. * Bowel regimen to be started post-procedure (Miralax 1-2x daily as needed).Dysphagia, Nausea, Vomiting, Reflux, Weight Loss, Melena (R13.10, R11.2, K21.9, R63.4, K92.1): * EGD showed Gastritis with bleeding and acute duodenal ulcer and colonoscopy planned but not completed due to anatomic limitations from bilateral inguinal hernia * Contineu PPI per GI Hyponatremia/Hypokalemia (E87.1, E87.6): * Mild, improved with supportive care. * Continue to monitor and correct as needed.Altered Mental Status (R41.82): * Etiology unclear; possible multifactorial (alcohol, malnutrition, chronic disease). * Neurology consulted; EEG and CT brain completed. no acute abnormalities noted * Mental status improved with supportive care. Patietn alert and oriented x3. * Alcohol Use Disorder (F10.10): * Daily use reported. * CIWA protocol, thiamine, folate, and MVI administered. * Alcohol cessation strongly recommended.Severe Protein-Calorie Malnutrition: * Supplements added. * Encourage nutritional support and follow-up. Discharge Medications: * Continue PPI * Miralax as needed for constipation * Iron supplementation as needed * Thiamine, folate, multivitamin * Seroquel at night for agitation (as needed) * Continue supportive care for alcohol withdrawal as indicated Follow-Up: * General surgery at the [facility] for elective hernia repair * Gastroenterology at [facility] for further evaluation of anemia and GI symptoms * Neurology at [facility] for ongoing cognitive assessment Patient tansferred to [facility] for continued care Patient Condition: Stable Time Spent with Patient Time attestation: Total time spent providing and/or coordinating transfer services: DS: Data Data Completed and Pending Pending studies at discharge: Pending at discharge 06/08/25 14:56 Surgical [PTH] Routine Labs on day of discharge: Labs from last 24 hours 06/08/25 06/08/25 06/08/25 12:12 05:35 04:50 WBC 8.8 RBC 3.09 L Hgb 9.3 L Hct 28.8 L MCV 93.2 MCH 30.1 MCHC 32.3 RDW 15.3 H Plt Count 219 MPV 10.4 Immature Gran % (Auto) Not Reportable Neut % (Auto) Not Reportable Lymph % (Auto) Not Reportable [place] % (Auto) Not Reportable Eos % (Auto) Not Reportable Baso % (Auto) Not Reportable Lymph # (Auto) Not Reportable [place] # (Auto) Not Reportable Eos # (Auto) Not Reportable Baso # (Auto) Not Reportable Abs Immat Gran (auto) Not Reportable Absolute Neuts (auto) Not Reportable Absolute Nucleated RBC Not Reportable Total Counted 100 Neutrophils % (Manual) 75 H Band Neutrophils % 3 Lymphocytes % (Manual) 15.0 L Monocytes % (Manual) 5 Eosinophils % (Manual) 1 Basophils % (Manual) 1 Nucleated RBC % Not Reportable Abs Neuts (Manual) 6.86 H Abs Lymphs (Manual) 1.32 Abs Monocytes (Manual) 0.44 Absolute Eos (Manual) 0.08 Abs Basophils (Manual) 0.08 Nucleated RBCs 1 Smudge Cells Present Platelet Estimate Adequate Large Platelets Present Hypochromasia 1+ Anisocytosis 1+ Schistocytes None seen Sodium 139 Potassium 3.6 Chloride 105 Carbon Dioxide 29 Anion Gap 5 BUN 11 D Creatinine 0.66 L Estim Creat Clear Calc 63 Estimated GFR > 60 Glucose 100 POC Capillary Glucose 89 106 H Calcium 8.6 Magnesium 2.0 Total Bilirubin 0.2 AST 30 ALT 17 Alkaline Phosphatase 63 Total Protein 5.6 L Albumin 3.1 L 06/07/25 06/07/25 23:36 16:55 WBC RBC Hgb Hct MCV MCH MCHC RDW Plt Count MPV Immature Gran % (Auto) Neut % (Auto) Lymph % (Auto) [place] % (Auto) Eos % (Auto) Baso % (Auto) Lymph # (Auto) [place] # (Auto) Eos # (Auto) Baso # (Auto) Abs Immat Gran (auto) Absolute Neuts (auto) Absolute Nucleated RBC Total Counted Neutrophils % (Manual) Band Neutrophils % Lymphocytes % (Manual) Monocytes % (Manual) Eosinophils % (Manual) Basophils % (Manual) Nucleated RBC % Abs Neuts (Manual) Abs Lymphs (Manual) Abs Monocytes (Manual) Absolute Eos (Manual) Abs Basophils (Manual) Nucleated RBCs Smudge Cells Platelet Estimate Large Platelets Hypochromasia Anisocytosis Schistocytes Sodium Potassium Chloride Carbon Dioxide Anion Gap BUN Creatinine Estim Creat Clear Calc Estimated GFR Glucose POC Capillary Glucose 121 H 103 Calcium Magnesium Total Bilirubin AST ALT Alkaline Phosphatase Total Protein Albumin
== END 2025-06-08 17:40 | disposition other institution (70) | DRG 640 ==
LOC: ANHED 06-02 03:48 → ANHIMU 06-02 04:22 → ANH2MED 06-03 23:02
PROVIDERS: Internal Medicine; Internal Medicine Gastroenterology; Admitting Provider General Practice; Emergency Provider Emergency Medicine; Visit Provider Internal Medicine
PROC: 0DJ08ZZ Inspection of Upper Intestinal Tract, Via Natural or Artificial Opening Endoscopic (ICD-10-PCS; CPT 45378; principal; 2025-06-08 14:45)
DX: E51.2 Wernicke's encephalopathy (principal); E43 Unspecified severe protein-calorie malnutrition; K29.51 Unspecified chronic gastritis with bleeding; Z68.1 Body mass index [BMI] 19.9 or less, adult; K92.1 Melena; E87.1 Hypo-osmolality and hyponatremia; K26.3 Acute duodenal ulcer without hemorrhage or perforation; D50.9 Iron deficiency anemia, unspecified; K40.20 Bilateral inguinal hernia, without obstruction or gangrene, not specified as recurrent; K59.00 Constipation, unspecified; K21.9 Gastro-esophageal reflux disease without esophagitis; R13.10 Dysphagia, unspecified; R11.2 Nausea with vomiting, unspecified; R79.89 Other specified abnormal findings of blood chemistry; R63.4 Abnormal weight loss; E87.6 Hypokalemia; F10.10 Alcohol abuse, uncomplicated; Z72.0 Tobacco use
CPT/HCPCS: 36415; 36430; 70450; 71045; 74176; 80053; 80069; 80143; 80179; 80307; 81001; 82077; 82140; 82306; 82607; 82728; 82746; 82948; 83540; 83550; 83605; 83735; 84100; 84207; 84252; 84425; 84443; 84484; 85014; 85018; 85025; 85027; 86593; 86850; 86900; 86901; 86923; 88305; 88312; 92610; 93005; 93306; 95816; 96374; 96375; 96376; 97110; 97162; 97165; 97530; 97535; 99285; A9270; G0378; J1630; J1756; J2060; J2470; J2704; J3411; J7030; J7042; J7050; J7120; P9016